=== PATIENT | female | born 1970 | race Caucasian/White ===

== ENCOUNTER → 2017-07-10 18:41 | Outpatient (CLI) | payer BC, SELFPAY ==
--- NOTE | 2017-07-10 18:46 | US_ITS ---
STUDY: ULTRASOUND OF THE FEMALE PELVIS - COMPLETE REASON FOR EXAM: Female, 46 years old. Evaluate IUD. Spotting. LMP: Unknown. TECHNIQUE: Transvaginal TECHNICAL QUALITY: Adequate. COMPARISON: None. FINDINGS: The uterus is anteverted and is in a midline position. The uterus measures 9 x 7.7 x 5 cm. There is minimal fluid within the endocervical canal. The endometrium measures 4 mm in thickness, and is hyperechoic. There is a small hypoechoic area in right side of the uterus measuring about 8 mm which could represent small uterine fibroid. There is another similar area anteriorly measuring about 1 cm. There is no demonstrated myometrial mass. I.U.D. - The patient does not have an I.U.D. The right ovary is visualized. The right ovary measures 2.8 x 1.7 x 1.6 cm cm. There is a follicle in the right ovary measuring about 8 mm. There is no visualized right adnexal mass or complex lesion. There is normal arterial and normal venous vascularity. The left ovary is visualized. The left ovary measures 3.9 x 2.8 x 1.7 cm cm. There is a 2 cm left ovarian cyst. There is no visualized left adnexal mass or complex lesion. There is normal arterial and normal venous vascularity. There is no fluid in the cul-de-sac. US/Transvaginal Non- IMPRESSION: No demonstrated IUD. Small hypoechoic areas in the uterus as described above which may represent small uterine fibroids. 2 cm left ovarian cyst. Minimal fluid within the endocervical canal. Electronically Signed: Harry Camejo MD at 23:14 EST Tel , Service support ,
== END ==
PROVIDERS: Family Provider Internal Medicine; PCP Internal Medicine; Visit Provider Nurse Practitioner Women's Health
DX: R10.2 Pelvic and perineal pain (principal); Z30.431 Encounter for routine checking of intrauterine contraceptive device
CPT/HCPCS: 76830; 93976

== ENCOUNTER 2017-07-25 09:15 | Inpatient (IN) | payer BC, SELFPAY ==
[2017-07-14 13:08] VITALS: BP 132/74; PULSE 66; RESP 17; TEMP 37.4; O2SAT 98; BMI 26.6
--- NOTE | 2017-07-14 13:51 | HP.PCM_ITS ---
History and Physical DATE OF SERVICE: 07/25/2017 SCHEDULED PROCEDURE: Bilateral total hip arthroplasty HISTORY OF PRESENT ILLNESS: This is a 46-year-old female who has had ongoing pain in bilateral hips for approximately 8-10 years. Pain is been constant, aching, stabbing, and sore. She has increased pain going up and down stairs, walking any amount of distance. Patient does have start up pain. Pain is located in bilateral groin as well as lateral hip and anterior thigh bilaterally. Patient has tried conservative measures consisting of rest ice with minimal relief. She has had a corticosteroid injection at the [facility] with minimal relief. Patient has been through formal physical therapy and home exercises as well as patient care technician with no relief. Patient has undergone an MRI which did show a labral tear. Patient was referred up to see a specialist for possible arthroscopy of the hip at the [facility]. The hip arthroscopy surgeon did not feel she is a good candidate for labral repair or debridement. Patient has difficult time with activities of daily living including housework, shopping, and leisure activities such as golf and long walks. Patient has tried oral medications consisting of Advil with minimal relief. She has lost approximately 25 pounds with no significant relief. She denies previous surgery on bilateral hips. After failing conservative measures and discussing all treatment options with Dr. Goldy Juárez the patient would like to proceed with a bilateral total hip arthroplasty. Patient currently denies any chest pain, shortness of breath, fevers chills, recent infections. Patient has medical history pertinent for hypertension. We are obtaining surgical clearance from patient's primary care physician. REVIEW OF SYSTEMS: ROS: Const: Denies change in appetite, fever,or weight change. CV: Denies chest pain, heart murmur and irregular heartbeat. Resp: Denies cough, pneumonia, SOB, tuberculosis and wheezing. GI: Denies constipation, diarrhea, difficulty swallowing, heartburn, nausea, bloody stools and vomiting. : . (F Genital Sx) Urinary: denies incontinence. Musculo: Reports trouble walking and weakness, but denies leg swelling and limp. Skin: Denies Raynaud's, history of shingles and tattoo. Neuro: Denies ambulatory dysfunction, dizziness, numbness/tingling and tremor. Psych: Denies anxiety, insomnia and stress. Prabhu/Lymph: Denies anemia, bleeding/bruising tendency and past transfusion. Reviewed, no changes. PAST MEDICAL HISTORY: Advance Care Plan: Other Directive, POA Effective Date: 05/18/2017 Other Directive, LIVING WILL Effective Date: 05/18/2017 PMH: Medical Problems: Arthritis, High Blood Pressure Accidents: None Surgical Hx: None Anesthesia Complications: None Assistive Devices: Contacts Reviewed, no changes. SOCIAL HISTORY: SH: Marital: .Occupation: Currently Working - [employer].Work Status : Currently Working.Hand Dominance: Right-handed. Personal Habits: Cigarette Use: Never Smoked Cigarettes.Alcohol: Currently consumes alcohol.Drug Use: Denies Use.Enjoy Exercising: Exercises 1-3 x/month. Reviewed, no changes. VITALS: Ht: 69 Wt: 180lb Wt k.648 BMI: 26.6 BP: 138/88 Pulse: 66 Resp: 16 T: 98.2 T: 36.8C ALLERGIES: No Known Drug Allergy MEDICATIONS: Ultram 50 mg 1-2 by mouth q6 hour as needed pain, Lisinopril 5 mg 1 by mouth every day, Mirena (52 MG) 20 mcg/24HR PRE-OP EXAM: General appearance:NORMAL Other: Eyes: Conjunctivae and lids: NORMAL Pupils: ERR Ears, Nose, Mouth, and Throat: NORMAL Other: Inspection of lips, teeth and gums: NORMAL Other: Neck: Examination of neck: no masses noted. Respiratory: Assessment of respiratory effort: NORMAL Other: Ausculation of lungs: clear to ausculation no wheeses, ronchi or rales. Cardiovascular: Ausculation of heart: regular rate and rhythem, no mummurs, gallops or rubs. Exam of carotid arteries: NORMAL Other: Gastrointestinal: Exam of abdomen: soft, nontender, nondistended bowel sounds present. Lymphatic: Palpation of nodes in neck: NORMAL Other: Palpation of nodes in Axillae: NORMAL Other: Neurological: see below Psychiatric: Orientation to time, place and person: NORMAL Other: Mood and affect: NORMAL Other: PHYSICAL EXAMINATION: Patient does walk with an antalgic gait. She has a 5? flexion contracture of the right hip. Internal rotation is a 30? and external rotation 25?. Range of motion of the left hip reveals 90? flexion with internal rotation of 30? and external rotation of 35?. Leg lengths appear equal. Sensations intact to light touch. IMAGING STUDIES: 1. X-rays were obtained at [facility] on July 14, 2017 including AP pelvis as well as bilateral AP and crossfire lateral reveals bilateral hip dysplasia. There is residual joint space on the left however there is flattening over the central femoral head. On the right there is complete loss of joint space with acetabular rim fracture, subchondral sclerosis, and osteophyte formation. Bilateral femoral necks have varus angle. 2. MR arthrogram of the left hip reveals labral tear with labral cyst. IMPRESSION: 1. Bilateral hip osteoarthritis with hip dysplasia 2. Hypertension PLAN: Dr. Juárez did discuss and review with the patient all treatment options including surgical versus nonsurgical. Patient wishes to proceed with above- stated procedure. Potential risks, benefits, and complications of this procedure were discussed in detail including but not limited to , infection , nerve and blood vessel damage, persistent pain, numbness, tingling, paresthesias, blood clot, pulmonary embolism, and requirement for further surgery. The patient expressed full understanding has no further questions for the doctor. Patient does agree to proceed with the above-stated procedure and has signed the surgery consent form. ___ I have re-examined the patient. There are no clinical changes since date of exam. ___ See progress notes for changes. ___ Dictated on admission Date: Time: Signature:
[2017-07-14 14:04] LABS: Absolute Lymphocyte Count 1.54 X10^3/ul (0.83-4.51); Absolute Neutrophil Count 4.2 X10^3/uL (2.0-7.7); Basophil# 0.04 X10^3/uL; Basophil% 0.6 % (0-1); Eosinophil# 0.27 X10^3/uL; Eosinophils% 4.1 % (0-5); Hematocrit 36.6 % (37-47); Hemoglobin 11.8 g/dl (12.0-15.0); Lymphocyte # 1.54 X10^3/ul (4.0); Lymphocyte % 23.6 % (19-41); Mean Corp Hgb Conc 32.2 g/gl (32-36); Mean Corpuscular Hgb 28.3 pg (27.0-32.0); Mean Corpuscular Volume 87.8 fL (81-99); Mean Platelet Vol. 10.3 fl (6.2-12.0); Monocyte# 0.44 X10^3/uL; Monocyte% 6.7 % (0-10); Neutrophil # 4.22 X10^3/uL (2.7-7.7); Neutrophil % 64.8 % (47-70); Platelet Count 212 K/mm3 (150-450); RBC Distribution Width CV 14.5 % (11.6-14.6); Red Blood Count 4.17 M/mm3 (4.2-5.4); White Blood Count 6.5 K/mm3 (4.4-11.0)
[2017-07-14 14:05] LABS: POSITIVE COUNT NO; POSITIVE DIFFERENTIAL NO; POSITIVE MORPHOLOGY NO
[2017-07-14 14:29] LABS: Anion Gap 8 (5-15); BUN 11 mg/dL (7-18); BUN/Creat Ratio 16.9 RATIO (10-20); Chloride 109 mmol/L (98-107); Creatinine, Serum 0.65 mg/dL (0.55-1.02); EST Glomerular Filtration Rate 104 mL/min (>60); Est Glom Filt Rate - Afr Amer 125 mL/min (>60); Estimated Creatinine Clearance 111.82 ml/min; Glucose 80 mg/dL (74-106); Sodium Level 140 mmol/L (136-145)
[2017-07-25] VITALS (10 sets, daily range): BP systolic 118–156; BP diastolic 65–95; PULSE 57–88; RESP 12–18; TEMP 36.3–37; O2SAT 96–100; BMI 26.6
[2017-07-25 09:44] LABS: Internal QC Validated? YES +Cl - CLEAR BKGD; Pregnancy, Urine Negative Negative
[2017-07-25] MEDS: oxyCODONE HCl Cr 10 MG Tablet PO (09:57)
[2017-07-25] MEDS: Acetaminophen 500 MG Tablet 1000 MG PO ×2 (09:58→21:03)
[2017-07-25] MEDS: Celecoxib 200 MG Capsule 400 MG PO (09:58)
[2017-07-25] MEDS: Lactated Ringers 1,000 ML 999 ML IV ×2 (10:25→15:15)
[2017-07-25] MEDS: Scopolamine 1mg/72hr Patch 1 PATCH TD (10:37)
[2017-07-25] MEDS: Heparin 10,000 UNITS/10 ML Vial 10000 UNITS (11:21)
--- NOTE | 2017-07-25 11:27 | PCM.OPRPT ---
Report of Operation Date of Procedure: 07/25/17 Pre-Operative Diagnosis: 1. Left hip secondary osteoarthritis. 2. Right hip secondary osteoarthritis Post-Operative Diagnosis: 1. Left hip secondary osteoarthritis. 2. Right hip secondary osteoarthritis Surgery/Procedure Performed:: 1. Left direct anterior total hip replacement. 2. Right direct anterior total hip replacement Description of Surgical Findings:: Stable hips with equal leg lengths dual hose cementer: Rg Zuluaga Type of Anesthesia:: Spinal Anesthesiologist: Rachid Alexander Special Medications: 2 g Ancef, 1 g TXA at incision, 1 g TXA closure, 10 mg Decadron, joint cocktail (5 mg Duramorph, 30 mL of 0.5% Ropivicaine, 1000 units of epinephrine, 30 mg of Toradol) Specimen's removed: Bony cuts Estimated Blood Loss (mL): 300 Fluids Replaced: 2200 mL crystalloid Description of Procedure: Components used: Left 1. Anato nanette femoral stem size 5 2. [place] trident acetabular shell size 54 mm 3. Nanette X3 polyethylene E 4. Nanette Biolox delta 36mm, 0mm femoral head Right 1. Anato [place] femoral stem size 5 2. [place] trident acetabular shell size 58 mm 3. [place] X3 polyethylene F 4. Nanette Biolox delta 36mm, -2.5mm femoral head Brief history operative indications: 46 yo F who failed conservative measures for their hip osteoarthritis secondary to bilateral hip dysplasia. X-rays were consistent with bilateral dysplasia and osteoarthritis including joint space narrowing, osteophyte formation and subchondral cysts. Total hip replacement was discussed with the patient with risks and benefits including but not limited to blood loss, DVTs, PEs, neurovascular damage, dislocation, general risks of anesthesia including loss of life. Patient demonstrated an understanding medical clearance is obtained the patient was consented for surgery. Procedure: On the date of procedure the patient's B hips were marked in the preoperative area. Patient was then taken back to the operating room where anesthesia assumed control of the C-spine and airway and administered anesthetic. Patient was transferred to the operating table and placed in the supine position. The hips were placed at the break of the bed and a sacral bump was placed. The Rosa lower extremities were then prepped out in a sterile fashion using chlorhexidine while the surgeon scrubbed. The PA was vital in the positioning of the patient. Upon reentering the room the rosa lower extremities were draped in the standard orthopedic fashion and the incision was marked. A timeout was called and everyone agreed upon the side, the site, the procedure be performed, antibody given, and patient's identity. At this time incision was made through skin on the left side, subcutaneous tissue, and fat down to fascia. The fascia was then incised and the TFL was retracted laterally. A retractor was placed on the lateral border of the femoral neck. Attention was directed to the inferior portion of the approach and all crossing vessels were identified and appropriately coagulated. A retractor was then placed on the medial portion of the femoral neck. The anterior capsule was then cleared of all soft tissue and then H shaped capsulotomy was made. The retractors were then placed inside the capsule. The femoral neck was identified and a cleanup cut was made. At this time a power corkscrew was used to remove the femoral head. Attention was then turned toward the acetabulum where the soft tissues were appropriately retracted and the acetabulum was sequentially reamed to 53 mm. A 54 mm cup was then selected and impacted into place. Acetabular liner was impacted into place and locking mechanism was verified. The position of the acetabular cup was then verified under live fluoroscopy. Attention was then turned to the femur. Soft tissue releases on the medial and lateral femoral neck were appropriately done, the leg was externally rotated and lateralized. A Hopper retractor was placed medially and proximally to the greater trochanter this allowed appropriate visualization and exposure of the femoral canal. Rongeour was then used to remove excess lateral bone. A canal finder and entry broach were used to open the proximal canal. Once we verified we were down the femoral canal we subsequently broached up to a size 5 femur. The appropriate neck was placed in the previously selected head was trialed with a 0 mm neck. Traction was pulled and the hip was reduced with internal rotation. Once it was appropriately reduced and stability was checked. There was minimal shuck, equal leg lengths and appropriate stability with hyperextension and external rotation as well as with 90? flexion and internal rotation. Fluoroscopy was then also used to verify the position of the components and leg lengths using the contralateral side for comparison. The trial components were then dislocated the proximal femur was again exposed and the components were removed from the wound. The final components were verified and opened. The wound was copiously irrigated out with normal saline. The acetabulum was checked for any residual debris. The final components were placed and impacted. Traction and internal rotation were again used to reduce the hip. After adequate reduction the hip remained stable with appropriate leg lengths. The final components were once again checked with live fluoroscopy and were found to be satisfactory. The wound was then copiously irrigated with normal saline once more, and hemostasis was obtained. Closure was then done using #1 Vicryl runner to close the fascia. A 2-0 vicryl interuppted sutures were used to close the subcutaneous skin. A 3-0 Monocryl and Steri-Strips were used for final skin closure. A Silverlon dressing was placed. Our attention was then directed towards the right side at this time incision was made through skin, subcutaneous tissue, and fat down to fascia. The fascia was then incised and the TFL was retracted laterally. A retractor was placed on the lateral border of the femoral neck. Attention was directed to the inferior portion of the approach and all crossing vessels were identified and appropriately coagulated. A retractor was then placed on the medial portion of the femoral neck. The anterior capsule was then cleared of all soft tissue and then H shaped capsulotomy was made. The retractors were then placed inside the capsule. The femoral neck was identified and a cleanup cut was made. At this time a power corkscrew was used to remove the femoral head. Attention was then turned toward the acetabulum where the soft tissues were appropriately retracted and the acetabulum was sequentially reamed to 57 mm. A 58 mm cup was then selected and impacted into place. Acetabular liner was impacted into place and locking mechanism was verified. The position of the acetabular cup was then verified under live fluoroscopy. Attention was then turned to the femur. Soft tissue releases on the medial and lateral femoral neck were appropriately done, the leg was externally rotated and lateralized. A Hopper retractor was placed medially and proximally to the greater trochanter this allowed appropriate visualization and exposure of the femoral canal. Rongeour was then used to remove excess lateral bone. A canal finder and entry broach were used to open the proximal canal. Once we verified we were down the femoral canal we subsequently broached up to a size 5 femur. The appropriate neck was placed in the previously selected head was trialed with a -2.5 mm neck. Traction was pulled and the hip was reduced with internal rotation. Once it was appropriately reduced and stability was checked. There was minimal shuck, equal leg lengths and appropriate stability with hyperextension and external rotation as well as with 90? flexion and internal rotation. Fluoroscopy was then also used to verify the position of the components and leg lengths using the contralateral side for comparison. The trial components were then dislocated the proximal femur was again exposed and the components were removed from the wound. The final components were verified and opened. The wound was copiously irrigated out with normal saline. The acetabulum was checked for any residual debris. The final components were placed and impacted. Traction and internal rotation were again used to reduce the hip. After adequate reduction the hip remained stable with appropriate leg lengths. The final components were once again checked with live fluoroscopy and were found to be satisfactory. The wound was then copiously irrigated with normal saline once more, and hemostasis was obtained. Closure was then done using #1 Vicryl runner to close the fascia. A 2-0 vicryl interuppted sutures were used to close the subcutaneous skin. A 3-0 Monocryl and Steri-Strips were used for final skin closure. A Silverlon dressing was placed. Patient was awakened by anesthesia and transferred to the [facility]. Patient was then transferred to the PACU for recovery. Postoperative plan: Patient will get 24 hours postop antibiotics. Patient will get in-house physical therapy and will be weight-bear as tolerated. Patient will follow up in office in 2 weeks for a wound check and x-rays. During the course of the procedure the physician residential living assistant played a vital role. His intimate knowledge of my steps in the procedure aided in safe and expedient completion of the procedure. The PA played a vital rolls in positioning particularly in obtaining the appropriate positioning of the sacral bump. The PA was also vital in the retraction of soft tissues during the exposure and especially the femoral work as this is a vital part of the procedure to prevent complications and fractures. The PA was also vital and protecting soft tissues during times of bony cuts and reaming. He also played a vital role in closure with my direct supervision. The PA was also important during reduction and dislocation of the joint and trials intraoperatively. Grafts/Implants Used: [place] Anato femoral stem - Complications none - Admit VTE Documentation VTE Present on Admission: No VTE Mechan Device Prophylaxis: SCD's, Thigh High MATHEUS Hose VTE Pharm Prophylaxis ordered?: Yes
--- NOTE | 2017-07-25 11:33 | OP.PCM_ITS ---
Report of Operation Date of Procedure: 07/25/17 Pre-Operative Diagnosis: 1. Left hip secondary osteoarthritis. 2. Right hip secondary osteoarthritis Post-Operative Diagnosis: 1. Left hip secondary osteoarthritis. 2. Right hip secondary osteoarthritis Surgery/Procedure Performed:: 1. Left direct anterior total hip replacement. 2. Right direct anterior total hip replacement Description of Surgical Findings:: Stable hips with equal leg lengths financial rep: Rg Zuluaga Type of Anesthesia:: Spinal Anesthesiologist: Rachid Alexander Special Medications: 2 g Ancef, 1 g TXA at incision, 1 g TXA closure, 10 mg Decadron, joint cocktail (5 mg Duramorph, 30 mL of 0.5% Ropivicaine, 1000 units of epinephrine, 30 mg of Toradol) Specimen's removed: Bony cuts Estimated Blood Loss (mL): 300 Fluids Replaced: 2200 mL crystalloid Description of Procedure: Components used: Left 1. Anato nanette femoral stem size 5 2. [place] trident acetabular shell size 54 mm 3. Nanette X3 polyethylene E 4. Nanette Biolox delta 36mm, 0mm femoral head Right 1. Anato [place] femoral stem size 5 2. [place] trident acetabular shell size 58 mm 3. [place] X3 polyethylene F 4. Nanette Biolox delta 36mm, -2.5mm femoral head Brief history operative indications: 46 yo F who failed conservative measures for their hip osteoarthritis secondary to bilateral hip dysplasia. X-rays were consistent with bilateral dysplasia and osteoarthritis including joint space narrowing, osteophyte formation and subchondral cysts. Total hip replacement was discussed with the patient with risks and benefits including but not limited to blood loss, DVTs, PEs, neurovascular damage, dislocation, general risks of anesthesia including loss of life. Patient demonstrated an understanding medical clearance is obtained the patient was consented for surgery. Procedure: On the date of procedure the patient's B hips were marked in the preoperative area. Patient was then taken back to the operating room where anesthesia assumed control of the C-spine and airway and administered anesthetic. Patient was transferred to the operating table and placed in the supine position. The hips were placed at the break of the bed and a sacral bump was placed. The Rosa lower extremities were then prepped out in a sterile fashion using chlorhexidine while the surgeon scrubbed. The PA was vital in the positioning of the patient. Upon reentering the room the rosa lower extremities were draped in the standard orthopedic fashion and the incision was marked. A timeout was called and everyone agreed upon the side, the site, the procedure be performed, antibody given, and patient's identity. At this time incision was made through skin on the left side, subcutaneous tissue, and fat down to fascia. The fascia was then incised and the TFL was retracted laterally. A retractor was placed on the lateral border of the femoral neck. Attention was directed to the inferior portion of the approach and all crossing vessels were identified and appropriately coagulated. A retractor was then placed on the medial portion of the femoral neck. The anterior capsule was then cleared of all soft tissue and then H shaped capsulotomy was made. The retractors were then placed inside the capsule. The femoral neck was identified and a cleanup cut was made. At this time a power corkscrew was used to remove the femoral head. Attention was then turned toward the acetabulum where the soft tissues were appropriately retracted and the acetabulum was sequentially reamed to 53 mm. A 54 mm cup was then selected and impacted into place. Acetabular liner was impacted into place and locking mechanism was verified. The position of the acetabular cup was then verified under live fluoroscopy. Attention was then turned to the femur. Soft tissue releases on the medial and lateral femoral neck were appropriately done, the leg was externally rotated and lateralized. A Hopper retractor was placed medially and proximally to the greater trochanter this allowed appropriate visualization and exposure of the femoral canal. Rongeour was then used to remove excess lateral bone. A canal finder and entry broach were used to open the proximal canal. Once we verified we were down the femoral canal we subsequently broached up to a size 5 femur. The appropriate neck was placed in the previously selected head was trialed with a 0 mm neck. Traction was pulled and the hip was reduced with internal rotation. Once it was appropriately reduced and stability was checked. There was minimal shuck, equal leg lengths and appropriate stability with hyperextension and external rotation as well as with 90? flexion and internal rotation. Fluoroscopy was then also used to verify the position of the components and leg lengths using the contralateral side for comparison. The trial components were then dislocated the proximal femur was again exposed and the components were removed from the wound. The final components were verified and opened. The wound was copiously irrigated out with normal saline. The acetabulum was checked for any residual debris. The final components were placed and impacted. Traction and internal rotation were again used to reduce the hip. After adequate reduction the hip remained stable with appropriate leg lengths. The final components were once again checked with live fluoroscopy and were found to be satisfactory. The wound was then copiously irrigated with normal saline once more, and hemostasis was obtained. Closure was then done using #1 Vicryl runner to close the fascia. A 2-0 vicryl interuppted sutures were used to close the subcutaneous skin. A 3-0 Monocryl and Steri-Strips were used for final skin closure. A Silverlon dressing was placed. Our attention was then directed towards the right side at this time incision was made through skin, subcutaneous tissue, and fat down to fascia. The fascia was then incised and the TFL was retracted laterally. A retractor was placed on the lateral border of the femoral neck. Attention was directed to the inferior portion of the approach and all crossing vessels were identified and appropriately coagulated. A retractor was then placed on the medial portion of the femoral neck. The anterior capsule was then cleared of all soft tissue and then H shaped capsulotomy was made. The retractors were then placed inside the capsule. The femoral neck was identified and a cleanup cut was made. At this time a power corkscrew was used to remove the femoral head. Attention was then turned toward the acetabulum where the soft tissues were appropriately retracted and the acetabulum was sequentially reamed to 57 mm. A 58 mm cup was then selected and impacted into place. Acetabular liner was impacted into place and locking mechanism was verified. The position of the acetabular cup was then verified under live fluoroscopy. Attention was then turned to the femur. Soft tissue releases on the medial and lateral femoral neck were appropriately done, the leg was externally rotated and lateralized. A Hopper retractor was placed medially and proximally to the greater trochanter this allowed appropriate visualization and exposure of the femoral canal. Rongeour was then used to remove excess lateral bone. A canal finder and entry broach were used to open the proximal canal. Once we verified we were down the femoral canal we subsequently broached up to a size 5 femur. The appropriate neck was placed in the previously selected head was trialed with a -2.5 mm neck. Traction was pulled and the hip was reduced with internal rotation. Once it was appropriately reduced and stability was checked. There was minimal shuck, equal leg lengths and appropriate stability with hyperextension and external rotation as well as with 90? flexion and internal rotation. Fluoroscopy was then also used to verify the position of the components and leg lengths using the contralateral side for comparison. The trial components were then dislocated the proximal femur was again exposed and the components were removed from the wound. The final components were verified and opened. The wound was copiously irrigated out with normal saline. The acetabulum was checked for any residual debris. The final components were placed and impacted. Traction and internal rotation were again used to reduce the hip. After adequate reduction the hip remained stable with appropriate leg lengths. The final components were once again checked with live fluoroscopy and were found to be satisfactory. The wound was then copiously irrigated with normal saline once more, and hemostasis was obtained. Closure was then done using #1 Vicryl runner to close the fascia. A 2-0 vicryl interuppted sutures were used to close the subcutaneous skin. A 3-0 Monocryl and Steri-Strips were used for final skin closure. A Silverlon dressing was placed. Patient was awakened by anesthesia and transferred to the [facility]. Patient was then transferred to the PACU for recovery. Postoperative plan: Patient will get 24 hours postop antibiotics. Patient will get in-house physical therapy and will be weight-bear as tolerated. Patient will follow up in office in 2 weeks for a wound check and x-rays. During the course of the procedure the physician ophthalmology assistant played a vital role. His intimate knowledge of my steps in the procedure aided in safe and expedient completion of the procedure. The PA played a vital rolls in positioning particularly in obtaining the appropriate positioning of the sacral bump. The PA was also vital in the retraction of soft tissues during the exposure and especially the femoral work as this is a vital part of the procedure to prevent complications and fractures. The PA was also vital and protecting soft tissues during times of bony cuts and reaming. He also played a vital role in closure with my direct supervision. The PA was also important during reduction and dislocation of the joint and trials intraoperatively. Grafts/Implants Used: [place] Anato femoral stem - Complications none - Admit VTE Documentation VTE Present on Admission: No VTE Mechan Device Prophylaxis: SCD's, Thigh High MATHEUS Hose VTE Pharm Prophylaxis ordered?: Yes
[2017-07-25] MEDS: Cefazolin 2 GM in 0.9% Normal Saline 100 ML IV (12:00)
--- NOTE | 2017-07-25 12:35 | RAD_ITS ---
STUDY: X-RAY - PELVIS AND BILATERAL HIPS REASON FOR EXAM: Female, 46 years old. Bilateral total hip replacement TECHNIQUE: Radiological exam, hip, bilateral, with pelvis when performed; 3-4 views COMPARISON: None. FINDINGS: 3 intraoperative fluoroscopy images demonstrate bilateral hip replacement without evidence of acute hardware failure or loosening. No definitive fracture RAD/Hips B/L min 2 views w/ Pelvis IMPRESSION: Postsurgical changes of both hips as above Electronically Signed: Timothy Kiser DO at 15:11 EST Tel , Service support ,
--- NOTE | 2017-07-25 14:47 | RAD_ITS ---
STUDY: X-RAY - PELVIS AND BILATERAL HIPS REASON FOR EXAM: Female, 46 years old. Postop from bilateral hip replacement TECHNIQUE: Radiological exam, hip, bilateral, with pelvis when performed; 2 views COMPARISON: 05/08/2017 FINDINGS: Patient is status post bilateral total hip arthroplasty. No evidence of acute hardware failure or loosening. Expected postoperative soft tissue changes are noted. Metallic IUD in the pelvic region. No evidence of fracture or dislocation. RAD/Hips B/L min 2 views w/ Pelvis IMPRESSION: Total hip arthroplasty as above bilaterally Electronically Signed: Timothy Kiser DO at 16:33 EST Tel , Service support ,
--- NOTE | 2017-07-25 15:45 | NURSING ---
bp taken at 1545 not recorded, pts arm was bent due to pt getting xray.
[2017-07-25] MEDS: Lactated Ringers 1,000 ML 125 ML IV (16:16)
[2017-07-25] MEDS: 0.9% NaCl Peripheral Flush Adult/Peds IV (17:58)
[2017-07-25] MEDS: oxyCODONE 5 MG Tablet PO (18:03)
[2017-07-25] MEDS: Cefazolin 1 GM/50 ML BAG IV (20:50)
[2017-07-25] MEDS: Senna/Docusate Sodium 1 Tablet 2 TABLET PO (21:03)
[2017-07-26] MEDS: Lactated Ringers 1,000 ML 125 ML IV (01:16)
[2017-07-26] MEDS: Cefazolin 1 GM/50 ML BAG IV (03:16)
[2017-07-26 03:19] VITALS: BP 109/75; PULSE 68; RESP 16; TEMP 36.4; O2SAT 97
[2017-07-26] MEDS: Rivaroxaban 10 MG Tablet PO (05:04)
[2017-07-26] MEDS: Acetaminophen 500 MG Tablet 1000 MG PO ×3 (05:04→21:35)
[2017-07-26 06:49] LABS: Hematocrit 25.8 % (37-47); Hemoglobin 8.2 g/dl (12.0-15.0); Mean Corp Hgb Conc 31.8 g/gl (32-36); Mean Corpuscular Volume 91.2 fL (81-99); Mean Platelet Vol. 11.1 fl (6.2-12.0); Platelet Count 185 K/mm3 (150-450); RBC Distribution Width CV 14.2 % (11.6-14.6); RBC Distribution Width SD 45.5 fl (35.1-43.9); Red Blood Count 2.83 M/mm3 (4.2-5.4); White Blood Count 14.6 K/mm3 (4.4-11.0)
[2017-07-26 06:56] LABS: Scan Indicated on CBC? Y/N NO
[2017-07-26 07:16] LABS: Anion Gap 7 (5-15); BUN 12 mg/dL (7-18); BUN/Creat Ratio 17.2 RATIO (10-20); Calcium,Total 8.3 mg/dL (8.5-10.1); Chloride 110 mmol/L (98-107); EST Glomerular Filtration Rate 96 mL/min (>60); Est Glom Filt Rate - Afr Amer 116 mL/min (>60); Estimated Creatinine Clearance 103.83 ml/min; Glucose 98 mg/dL (74-106); Potassium 4.1 mmol/L (3.5-5.1); Sodium Level 142 mmol/L (136-145)
--- NOTE | 2017-07-26 07:24 | PN.ORTHO_ITS ---
Subjective: The patient was sitting in bedside chair upon examination. Patient denies any chest pain, shortness of breath, dizziness, lightheadedness, nausea or vomiting , or calf pain. Pain is controlled on medications. No adverse overnight events. [ ]. Objective: Vital signs stable and afebrile. Patient is able to plantarflex and dorsiflex actively. Sensation is intact to light touch to saphenous, sural, superficial and deep peroneal, and tibial distribution. Dressing is clean dry and intact on right. On the left dressing there is drainage to the lateral distal one third contacting 3 borders. Negative Homans bilaterally, negative signs and symptoms of DVT. - Physical Exam General: Alert, Oriented x3, Cooperative, No apparent distress Vital Signs Temp Pulse Resp BP Pulse Ox 97.5 F L 68 16 109/75 97 07/26/17 03:19 07/26/17 03:19 07/26/17 03:19 07/26/17 03:19 07/26/17 03:19 Oxygen Delivery Method Room Air Weight: 82 kg Body Mass Index (BMI) 26.6 Intake and Output for Last 24 Hours 07/24/17 07/25/17 07/26/17 23:59 23:59 23:59 Intake Total 3326 / 3326 3023 / 3023 Output Total 1550 / 1550 Balance 3326 / 3326 1473 / 1473 Laboratory Tests Past 24 Hrs 07/25/17 07/26/17 07/26/17 09:27 06:10 06:10 WBC 14.6 H RBC 2.83 L Hgb 8.2 L Hct 25.8 L MCV 91.2 MCH 29.0 MCHC 31.8 L RDW 14.2 RDW Differential 45.5 H Plt Count 185 MPV 11.1 Sodium 142 Potassium 4.1 Chloride 110 H Carbon Dioxide 25.0 Anion Gap 7 BUN 12 Creatinine 0.70 Estim Creat Clear Calc 103.83 Est GFR (MDRD) Af Amer 116 Est GFR (MDRD) Non-Af 96 BUN/Creatinine Ratio 17.2 Glucose 98 Calcium 8.3 L Urine Test Negative Assessment/Plan 1. S/P bilateral direct anterior total hip arthroplasty POD #1 2. Continue Pain Medications: Tylenol and OxyIR 3. DVT Prophylaxis: Xarelto 4. PT/OT: Weightbearing as tolerated 5. H & H: 8.2/25.8, asymptomatic 6. Leukocytosis: Currently 14.6, afebrile. Patient did receive Decadron intraoperatively 7. Encouraged Incentive Spirometry 8. Postoperative drainage: Will need to obtain new dressing for left hip and will be placed by nursing 9. Disposition: Plan will be for discharge home tomorrow.
[2017-07-26] MEDS: Senna/Docusate Sodium 1 Tablet 2 TABLET PO ×2 (08:52→21:35)
[2017-07-26] MEDS: Famotidine 20 MG Tablet PO (08:52)
[2017-07-26 08:57] VITALS: BP 104/58; PULSE 73; RESP 18; TEMP 36.6; O2SAT 100
[2017-07-26] MEDS: oxyCODONE 5 MG Tablet PO ×2 (12:42→21:35)
[2017-07-26 13:41] VITALS: BP 112/62; PULSE 68; RESP 16; TEMP 36.7; O2SAT 100
--- NOTE | 2017-07-26 13:50 | CASEMGMT ---
RN DORON Face to Face with patient for initial transition planning/care coordination assessment. RN CM introduced self and role at [facility]. Patient lying in bed, alert and oriented, mother at bedside. Patient willing to participate in assessment and is able to answer all questions appropriately. Care providers, pharmacy, and demographics verified. See link attached. Patient wishes to discharge home and has outpatient therapy setup at [facility]. Patient states that her or mother will be providing transportation. Patient states she has no further needs or concerns at this time. CM to follow for discharge planning needs that may arise. Disposition Plan: Patient to discharge home with outpatient therapy, family support, and follow-up plans in place.
[2017-07-26 21:40] VITALS: BP 120/59; PULSE 82; RESP 16; TEMP 36.9; O2SAT 100
[2017-07-27] VITALS (13 sets, daily range): BP systolic 104–157; BP diastolic 62–84; PULSE 76–104; RESP 16–18; TEMP 36.4–37.6; O2SAT 98–100
[2017-07-27] MEDS: oxyCODONE 5 MG Tablet PO ×2 (06:02→23:13)
[2017-07-27] MEDS: Acetaminophen 500 MG Tablet 1000 MG PO ×3 (06:02→23:14)
[2017-07-27] MEDS: Rivaroxaban 10 MG Tablet PO (06:02)
[2017-07-27 06:33] LABS: Hematocrit 23.7 % (37-47); Hemoglobin 7.5 g/dl (12.0-15.0); Mean Corp Hgb Conc 31.6 g/gl (32-36); Mean Corpuscular Volume 91.5 fL (81-99); Mean Platelet Vol. 11.1 fl (6.2-12.0); Platelet Count 140 K/mm3 (150-450); RBC Distribution Width CV 14.5 % (11.6-14.6); RBC Distribution Width SD 47.1 fl (35.1-43.9); Red Blood Count 2.59 M/mm3 (4.2-5.4); White Blood Count 7.4 K/mm3 (4.4-11.0)
[2017-07-27 06:34] LABS: Scan Indicated on CBC? Y/N NO
[2017-07-27] MEDS: Famotidine 20 MG Tablet PO (07:51)
[2017-07-27] MEDS: Senna/Docusate Sodium 1 Tablet 2 TABLET PO ×2 (07:51→23:14)
[2017-07-27] MEDS: Ketorolac 15 MG/ML Vial IV (07:54)
[2017-07-27] MEDS: 0.9% NaCl Peripheral Flush Adult/Peds IV ×2 (07:55→23:19)
--- NOTE | 2017-07-27 08:46 | PCM.PN.ORT ---
Subjective: The patient was sitting in bedside chair upon examination. Patient denies any chest pain, shortness of breath, nausea or vomiting, or calf pain. Pain is controlled on medications. Does report dizziness and lightheadedness when she stands. No adverse overnight events. Patient's hemoglobin has dropped to 7.5. Objective: Vital signs stable and afebrile. Blood pressure currently 104/62 Patient is able to plantarflex and dorsiflex actively. Sensation is intact to light touch to saphenous, sural, superficial and deep peroneal, and tibial distribution. Dressings are clean dry and intact. There is swelling to bilateral thighs but compartments are soft and supple. There is ecchymosis on the lateral left hip. Negative Homans bilaterally, negative signs and symptoms of DVT. - Physical Exam General: Alert, Oriented x3, Cooperative, No apparent distress Vital Signs Temp Pulse Resp BP Pulse Ox 98 F 90 16 104/62 100 07/27/17 07:46 07/27/17 07:46 07/27/17 07:46 07/27/17 07:46 07/27/17 07:46 Oxygen Delivery Method Room Air Weight: 82 kg Body Mass Index (BMI) 26.6 Intake and Output for Last 24 Hours 18 //18 07/27/17 23:59 23:59 23:59 Intake Total 3326 / 3326 4623 / 4623 1300 / 1300 Output Total 1550 / 1550 Balance 3326 / 3326 3073 / 3073 1300 / 1300 Laboratory Tests Past 24 Hrs 07/27/17 05:58 WBC 7.4 RBC 2.59 L Hgb 7.5 L Hct 23.7 L MCV 91.5 MCH 29.0 MCHC 31.6 L RDW 14.5 RDW Differential 47.1 H Plt Count 140 L MPV 11.1 Assessment/Plan 1. S/P bilateral direct anterior total hip arthroplasty POD #2 2. Continue Pain Medications: Tylenol and OxyIR 3. DVT Prophylaxis: Xarelto 4. PT/OT: Weightbearing as tolerated 5. H & H: 7.5/23.7, patient currently with dizziness and lightheadedness upon standing. Postoperative anemia secondary to acute blood loss. Case was discussed with Dr. Juárez, plan will be for transfusion of 2 units of packed red blood cells followed by repeat H&H. 6. Leukocytosis: resolved currently 7.4, afebrile. Patient did receive Decadron intraoperatively 7. Encouraged Incentive Spirometry 8. Postoperative drainage: Will need to obtain new dressing for left hip and will be placed by nursing 9. Disposition: Plan will be for possible discharge home tomorrow.
[2017-07-27] MEDS: Celecoxib 200 MG Capsule PO (23:14)
[2017-07-28 03:59] VITALS: BP 133/83; PULSE 73; RESP 16; TEMP 36.6; O2SAT 98
[2017-07-28] MEDS: Acetaminophen 500 MG Tablet 1000 MG PO (06:09)
[2017-07-28] MEDS: Rivaroxaban 10 MG Tablet PO (06:09)
[2017-07-28] MEDS: oxyCODONE 5 MG Tablet PO (06:12)
[2017-07-28 06:20] LABS: Hematocrit 27.7 % (37-47); Hemoglobin 9.1 g/dl (12.0-15.0); Mean Corp Hgb Conc 32.9 g/gl (32-36); Mean Corpuscular Hgb 29.3 pg (27.0-32.0); Mean Corpuscular Volume 89.1 fL (81-99); Mean Platelet Vol. 11.2 fl (6.2-12.0); Platelet Count 146 K/mm3 (150-450); RBC Distribution Width CV 15.6 % (11.6-14.6); RBC Distribution Width SD 49.3 fl (35.1-43.9); Red Blood Count 3.11 M/mm3 (4.2-5.4); White Blood Count 7.7 K/mm3 (4.4-11.0)
[2017-07-28 06:23] LABS: Scan Indicated on CBC? Y/N NO
--- NOTE | 2017-07-28 07:11 | PN.ORTHO_ITS ---
Subjective: The patient was sitting in bedside chair upon examination. Patient denies any chest pain, shortness of breath, dizziness, lightheadedness, nausea or vomiting , or calf pain. Pain is controlled on medications. No adverse overnight events. Patient received 2 units of packed red blood cells due to drop in hemoglobin on July 27, 2017. Patient is feeling much better today. She also states the hips are less painful. She does wish to try to go home today. Objective: Vital signs stable and afebrile. Blood pressure currently 104/62 Patient is able to plantarflex and dorsiflex actively. Sensation is intact to light touch to saphenous, sural, superficial and deep peroneal, and tibial distribution. Dressings are clean dry and intact. There is swelling to bilateral thighs but compartments are soft and supple. There is ecchymosis on the lateral left hip. Negative Homans bilaterally, negative signs and symptoms of DVT. - Physical Exam General: Alert, Oriented x3, Cooperative, No apparent distress Vital Signs Temp Pulse Resp BP Pulse Ox 97.8 F 73 16 133/83 H 98 07/28/17 03:59 07/28/17 03:59 07/28/17 03:59 07/28/17 03:59 07/28/17 03:59 Oxygen Delivery Method Room Air Weight: 82 kg Body Mass Index (BMI) 26.6 Intake and Output for Last 24 Hours 07/26/17 07/27/17 07/28/17 23:59 23:59 23:59 Intake Total 4623 / 4623 3121 / 3121 360 / 360 Output Total 1550 / 1550 Balance 3073 / 3073 3121 / 3121 360 / 360 Laboratory Tests Past 24 Hrs 07/27/17 07/28/17 09:10 05:40 WBC 7.7 RBC 3.11 L Hgb 9.1 L Hct 27.7 L MCV 89.1 MCH 29.3 MCHC 32.9 RDW 15.6 H RDW Differential 49.3 H Plt Count 146 L MPV 11.2 Blood Type A POSITIVE Antibody Screen NEGATIVE Crossmatch See Detail Assessment/Plan 1. S/P bilateral direct anterior total hip arthroplasty POD #3 2. Continue Pain Medications: Tylenol and OxyIR 3. DVT Prophylaxis: Xarelto 4. PT/OT: Weightbearing as tolerated 5. H & H: 9.1/27.7, patient currently asymptomatic with vital signs stable. Postoperative anemia secondary to acute blood loss. Patient did receive 2 units of packed red blood cells on July 27, 2017 6. Encouraged Incentive Spirometry 7. Disposition: Plan will be for possible discharge home today. Overall patient is doing significantly better since receiving transfusion. If patient tolerates physical therapy and pain is well controlled plan will be for discharge home today. Prescriptions are attached to chart. Patient will follow -up per postop instructions.
--- NOTE | 2017-07-28 07:17 | PCM.DC.THR ---
Discharge Diet: No Restrictions Discharge Activity: May Not Drive - while taking narcotic pain medications. May shower in (days): 1 - Turned dressings away from water Weight Bearing Status: Weight bearing as tolerated Additional Activity Instructions:: Wear elastic stockings for 2 weeks. DO NOT use alcohol with narcotic pain medication. DO NOT make important decisions while taking narcotic medication. If you have problems with taking your medication (rash, itching, nausea, etc.) call the office at once. Call your doctor if your incision/area has: Increased Pain/ Swelling, Increased Redness, Foul Smelling Discharge Call your doctor if you observe: Fever of 101 or Higher Remove Dressing in (days):: 2 - Okay to remove on July 30, 2017 Additional Instructions: Follow [facility] postop instructions Allergies/Adverse Reactions: Allergies No Known Allergies Allergy (Verified 07/14/17 13:04) Medications to take at Discharge levonorgestrel 20 mcg/24 hr (5 years) intrauterine device 1 insert INTRAUTERINE ONCE 06/27/17 Lisinopril [Prinivil] 5 mg PO QDAY 07/14/17 Acetaminophen [Tylenol] 1,000 mg PO Q8 #90 tab 07/28/17 Celecoxib [Celebrex] 200 mg PO BID #30 cap 07/28/17 Famotidine [Pepcid] 20 mg PO DAILY #30 tab 07/28/17 Oxycodone [Oxyir] 5 - 10 mg PO Q4H PRN PRN 7 Days #80 tab 07/28/17 Rivaroxaban [Xarelto] 10 mg PO DAILY@0600 #10 tab 07/28/17 Senna/Docusate Sodium [Senokot-S] 2 tab PO BID #20 tab 07/28/17 The following prescriptions were given: Oxycodone [Oxyir] 5 - 10 mg PO Q4H PRN PRN 7 Days #80 tab PRN Reason: Mod-Severe Pain (-03/07) Acetaminophen [Tylenol] 1,000 mg PO Q8 #90 tab Famotidine [Pepcid] 20 mg PO DAILY #30 tab Rivaroxaban [Xarelto] 10 mg PO DAILY@0600 #10 tab Celecoxib [Celebrex] 200 mg PO BID #30 cap Senna/Docusate Sodium [Senokot-S] 2 tab PO BID #20 tab Primary Care Physician: Kendrick Downs MD [Primary Care Provider] - Please Follow Up With: [facility] physical therapy with [facility] When: 07/31/17 @ 9:00 am Please Follow Up With: Rg Zuluaga PA-C When: 08/07/17 @ 3:00 pm
--- NOTE | 2017-07-28 07:20 | PCM.DC.SUM ---
Discharge Date and Diagnosis Date of Admission: 07/25/17 Date of Discharge: 07/28/17 - Primary Discharge Diagnosis Bilateral total hip arthroplasty - Secondary Discharge Diagnosis Chronic Problems (Last Reviewed 07/10/17 @ 14:55 by Shana Mcgovern) Chronic back pain (Chronic) Arthritis (Chronic) Seasonal allergies (Chronic) Hypertension (Chronic) Hospital Course and Treatment Summary of Care Provided: Patient is a 46-year-old female who had bilateral hip osteoarthritis. After failing conservative measures, the patient opted to proceed with a bilateral total hip arthroplasty. The patient underwent the above-stated procedure on July 25, 2017. Patient did receive perioperative antibiotics. Intraoperatively was uneventful. For details please see dictated operative note. The patient was placed in thigh-high teds, bilateral SCDs, remained stable in recovery. Patient was admitted to the 3rd floor at [facility]. The patient's pain was managed with the use of IV and p.o. pain medications. Patient participated in physical therapy. Patient did require transfusion of 2 units PRBC's on POD#2. Patient felt significantly better the next day and was asymptomatic. Patient was discharged on postoperative day #3 to home. Patient was given medications stated below. Patient will follow up with [facility] per postop instructions for reassessment. Discharge Diet: No Restrictions Discharge Activity: May Not Drive - while taking narcotic pain medications. May shower in (days): 1 - Turned dressings away from water Weight Bearing Status: Weight bearing as tolerated Additional Activity Instructions:: Wear elastic stockings for 2 weeks. DO NOT use alcohol with narcotic pain medication. DO NOT make important decisions while taking narcotic medication. If you have problems with taking your medication (rash, itching, nausea, etc.) call the office at once. Call your doctor if your incision/area has: Increased Pain/ Swelling, Increased Redness, Foul Smelling Discharge Call your doctor if you observe: Fever of 101 or Higher Remove Dressing in (days):: 2 - Okay to remove on July 30, 2017 Home Medications: Medications to take at Discharge levonorgestrel 20 mcg/24 hr (5 years) intrauterine device 1 insert INTRAUTERINE ONCE 06/27/17 Lisinopril [Prinivil] 5 mg PO QDAY 07/14/17 Acetaminophen [Tylenol] 1,000 mg PO Q8 #90 tab 07/28/17 Celecoxib [Celebrex] 200 mg PO BID #30 cap 07/28/17 Famotidine [Pepcid] 20 mg PO DAILY #30 tab 07/28/17 Oxycodone [Oxyir] 5 - 10 mg PO Q4H PRN PRN 7 Days #80 tab 07/28/17 Rivaroxaban [Xarelto] 10 mg PO DAILY@0600 #10 tab 07/28/17 Senna/Docusate Sodium [Senokot-S] 2 tab PO BID #20 tab 07/28/17 Following Prescrptions Were Given to Patient: Oxycodone [Oxyir] 5 - 10 mg PO Q4H PRN PRN 7 Days #80 tab PRN Reason: Mod-Severe Pain (-03/07) Acetaminophen [Tylenol] 1,000 mg PO Q8 #90 tab Famotidine [Pepcid] 20 mg PO DAILY #30 tab Rivaroxaban [Xarelto] 10 mg PO DAILY@0600 #10 tab Celecoxib [Celebrex] 200 mg PO BID #30 cap Senna/Docusate Sodium [Senokot-S] 2 tab PO BID #20 tab Primary Care Physician: Kendrick Downs MD [Primary Care Provider] - Please Follow Up With: [facility] physical therapy with [place] When: 07/31/17 @ 9:00 am Please Follow Up With: Rg Zuluaga PA-C When: 08/07/17 @ 3:00 pm Additional Instructions: Follow [facility] postop instructions Meaningful Use Info Meaningful Use Diagnoses (Choose all that apply): None applicable
[2017-07-28 07:42] VITALS: BP 125/71; PULSE 73; RESP 16; TEMP 36.4; O2SAT 98
[2017-07-28] MEDS: Famotidine 20 MG Tablet PO (09:31)
[2017-07-28] MEDS: Lisinopril 5 MG Tablet PO (09:31)
[2017-07-28] MEDS: Senna/Docusate Sodium 1 Tablet 2 TABLET PO (09:31)
[2017-07-28] MEDS: Celecoxib 200 MG Capsule PO (09:31)
== END 2017-07-28 10:53 | disposition home or self-care (01) | DRG 462 ==
LOC: ACINP 09:15 → MS3 14:37
PROVIDERS: Anesthesiology; Admitting Provider Specialist; Family Provider Internal Medicine; PCP Internal Medicine; Visit Provider Specialist
PROC: 0SRB04A Replacement of Left Hip Joint with Ceramic on Polyethylene Synthetic Substitute, Uncemented, Open Approach (ICD-10-PCS; CPT 27284; principal; 2017-07-25 10:50)
DX: M16.6 Other bilateral secondary osteoarthritis of hip (principal); D62 Acute posthemorrhagic anemia; G89.29 Other chronic pain; I10 Essential (primary) hypertension; Q65.89 Other specified congenital deformities of hip; M54.9 Dorsalgia, unspecified
CPT/HCPCS: 36415; 73521; 76000; 80048; 81025; 85025; 85027; 86850; 86900; 86920; 86922; 87081; 97110; 97116; 97162; 97166; 97530; 97535; 97802; 99251; J7040; J7120; P9016; A4216; G0463; J2405

== ENCOUNTER → 2018-05-16 07:29 | Outpatient (CLI) | payer BC, SELFPAY ==
[2018-04-22 11:27] VITALS: BMI 30.8
--- NOTE | 2018-05-15 17:30 | BI_ITS ---
MAMMOGRAPHY - BILATERAL SCREENING REASON FOR EXAM: Female, 47 years old. Routine annual screening examination. PERTINENT HISTORY: Non-contributory. TECHNIQUE: Digital bilateral breast raymond (3D mammographic acquisition) in the CC and MLO projections. 2-D mediolateral oblique (MLO) and craniocaudad (CC) views of both breasts were obtained. CAD: Full Field Digital Mammography with Computer Added Detection was performed. COMPARISON: Comparison is made with prior artery examination dated October 04, 2016. FINDINGS: Breast Composition: The breasts are heterogeneously dense, which may obscure small masses. There are no dominant masses or suspicious calcifications. Stable bilateral axillary lymph nodes. No other significant abnormalities are identified. There has been no significant change since the prior study. BI/SCREENING MAMM (CAD), BILAT IMPRESSION: Stable bilateral screening mammogram. Yearly follow-up mammogram recommended. (A) ASSESSMENT CATEGORY: BIRADS Category 2: Benign. A letter regarding these results will be sent to the patient by the facility within 30 days. Approximately 10% of breast cancers are not detected by mammography. A normal mammogram should not delay biopsy of a clinically suspicious abnormality. [id number] Electronically Signed: Aidan Wheeler MD at 8:16 EST Tel [phone], Service support ,
--- OUTSIDE RECORDS SUMMARY | 2018-08-17 08:07 | XMS RPT_ITS ---
:1970 Author Organization [place] Support Name Relationship Address Phone JMSM Unavailable [address] + [place] [address] STARCHER, LEIGH Unavailable [address] + [place] [address] JMSM Unavailable [address] + [place] [address] STARCHER, LEIGH Unavailable [address] + [place] [address] JMSM Unavailable [address] + [place] [address] STARCHER, LEIGH Unavailable [address] + [place] [address] JMSM Unavailable [address] + [place] [address] STARCHER, LEIGH Unavailable [address] + [place] [address] JMSM Unavailable [address] + [place] [address] STARCHER, LEIGH Unavailable [address] + [place] [address] JMSM Unavailable [address] + [place] [address] STARCHER, LEIGH Unavailable [address] + [place] [address] JMSM Unavailable [address] + [place] [address] STARCHER, LEIGH Unavailable [address] + [place] [address] JMSM Unavailable [address] + [place] [address] STARCHER, LEIGH Unavailable [address] + [place] [address] JMSM Unavailable [address] + [place] [address] STARCHER, LEIGH Unavailable [address] + [place] [address] JM Unavailable [address] + [place] [address] STARCHER, LEIGH Unavailable [address] + [place] [address] JMSM Unavailable [address] + [place] [address] STARCHER, LEIGH Unavailable [address] + [place] [address] JMSM Unavailable [address] + [place] [address] STARCHER, LEIGH Unavailable [address] + [place] [address] Care Team Providers Name Role Phone Yamileth Mott Attending Unavailable Yamileth Mott Referring Unavailable Oleghe, Efewongbe Primary Care Unavailable Ayala Parker Attending Unavailable Oleghe, Efewongbe Referring Unavailable Oleghe, Efewongbe Attending Unavailable Primay Care Physicia, No Referring Unavailable Primay Care Physicia, No Primary Care Unavailable Cristofer Juárez Admitting Unavailable Cristofer Juárez Attending Unavailable Cristofer Juárez Referring Unavailable Oleghe, Efewongbe Primary Care Unavailable Ayala Parker Attending Unavailable Primay Care Physicia, No Referring Unavailable Primay Care Physicia, No Primary Care Unavailable Ayala Parker Attending Unavailable ElenaAyala Referring Unavailable Oleghe, Efewongbe Primary Care Unavailable Elena, Molly Attending Unavailable Oleghe, Efewongbe Primary Care Unavailable Castro Padilla Attending Unavailable Marquita, Cristofer Referring Unavailable Oleghe, Efewongbe Attending Unavailable Oleghe, Efewongbe Referring Unavailable Oleghe, Efewongbe Attending Unavailable Oleghe, Efewongbe Referring Unavailable Oleghe, Efewongbe Primary Care Unavailable Oleghe, Efewongbe Attending Unavailable Oleghe, Efewongbe Referring Unavailable Oleghe, Efewongbe Primary Care Unavailable Beatriz Martinez Attending Unavailable Oleghe, Efewongbe Referring Unavailable PROBLEMS PROBLEMS DATE TYPE CONDITION / CODE ATTENDING STATUS SOURCE 05/31/2018 Unknown Z12.4 - Encounter Ayala Parker Active [place] for screening for Community malignant neoplasm Hospital of cervix / Repository Z12.4(ICD-10) 05/16/2018 Unknown Z12.31 - Encounter Tiera, Active [place] for screening [facility] mammogram for Hospital malignant neoplasm Repository of breast / Z12.31(ICD-10) 02/08/2018 Unknown I10 - Essential Himanshu, Active [place] (primary) [facility] hypertension / Hospital I10(ICD-10) Repository 07/28/2017 Unknown Z96.641 - Presence Cristofer Juárez Active [place] of right artificial [facility] hip joint / Hospital Z96.641(ICD-10) Repository 07/28/2017 Unknown Z96.642 - Presence MarquitaCristofer Active [place] of left artificial [facility] hip joint / Hospital Z96.642(ICD-10) Repository 07/10/2017 Unknown Z30.431 - Encounter Ayala Parker Active [place] for routine [facility] checking of Hospital intrauterine Repository contraceptive device / Z30.431(ICD-10) 07/10/2017 Unknown R10.2 - Pelvic and [place], Ayala Active [place] perineal pain / Community R10.2(ICD-10) Hospital Repository 07/10/2017 Unknown N92.6 - Irregular [place], Ayala Active [place] menstruation, Community unspecified / Hospital N92.6(ICD-10) Repository 06/27/2017 Unknown Z01.818 - Encounter Himanshu, Active [place] for other [facility] preprocedural Hospital examination / Repository Z01.818(ICD-10) PROCEDURES PROCEDURES No Procedure Records FoundRESULTS RESULTS LABORER WHARF OFFICE VISIT Observed: 05/31/2018 Status: F Source: [place] REPORT 9:28 AM [facility] REPOSITORY [facility] [address] [place] [address]. [address] [place] [address] OFFICE VISIT Date of Service: 05/31/18 MR#: [id number] Acct: [id number] Name: MANDEEP MCRAE Rep #: [id number] : 1970 Provider: KD Parker Age/Sex: 47/F Location: [facility] Status: Signed Intake Vital Signs05/31/18 Body Mass Index (BMI) 30.8 05/31/18 Height 5 ft 10 in 05/31/18 Weight: 195 lb 8 oz 05/31/18 Body Mass Index (BMI) 28.0 05/31/18 Blood Pressure 122/84 H Intake Visit Reasons: ANNUAL Market Development Trainer Required: No Is patient in pain?: No Allergies No Known Allergies Allergy (Verified 05/31/18 09:05) Medications levonorgestrel 20 mcg/24 hr (5 years) intrauterine device 1 insert INTRAUTERINE ONCE 06/27/17 [History Confirmed 05/31/18] lisinopril 10 mg tablet 10 mg PO DAILY #90 tab 02/08/18 [Rx Confirmed 05/31/18] Is last menstrual period known: Yes Post menopausal: No Patient : No : No [facility] Medical History Chronic back pain (Chronic) Frequent headaches (Acute) Arthritis (Chronic) Seasonal allergies (Chronic) Hypertension (Chronic) Surgical History H/O bilateral hip replacements (Acute) Family History Father Cancer lyphoma Hyperlipemia Hypertension Mother Hypertension Arthritis Grandfather Colon cancer Grandfather Heart disease Social History Smoking Status: Never smoker alcohol intake: current alcohol intake frequency: a few times a week Alcohol type: wine, beer details: social substance use type: does not use caffeine: Yes what type of physical activity do you participate in: none seatbelt use: always do you feel safe at home: Yes additional social history: Leigh- Daily Record Patient works at [employer] Pregancy History 1 Elective abortions Hx Para 1 Spontaneous abortions Past Pregnancies Del. DatName GA/WeeksOutcome Route [facility] LocaProviderFOB e ht en ia tn Unknown 2002 Dev live birNSVD Male on l term HPI ANNUAL: Details: MANDEEP MCRAE is a 47 year old who presents for annual exam. Last PAP: unsure History of abnormal PAP: no Last mammogram: recent History of abnormal mammogram: no Contraception: IUD-rare light menses Female Reproductive History Questions: Metorrhagia: No, Sexually active: Yes, Dyspareunia: No, PCB: No ROS Const Constitutional: Denies fatigue, weight gain or weight loss Cardio Card: Denies chest pain Resp Resp: Denies cough or shortness of breath with activity GI GI: Denies abdominal pain, constipation, change in stools, vomiting or bloating : Reports as per HPI; denies urinary frequency, pelvic pain, urinary urgency, vaginal discharge, vaginal itching, urinary incontinence or difficulty urinating Exam Const General: cooperative, healthy appearing, no acute distress, well developed Orientation: alert, oriented to person, oriented to place HENAZ Head: normal to inspection Neck Neck: normal visual inspection Thyroid: thyroid normal Lymphatic: no lymphadenopathy noted Chest Breast inspection: normal inspection of the breasts, normal inspection of the axillae Breast palpation: normal palpation of the breasts, normal palpation of the axillae, no axillary lymphadenopathy Resp Effort AND Inspection: normal respiratory effort GI Palpation: soft, nontender, no masses Rectal Exam: deferred External Female Exam: normal external appearance, normal appearance of the urethra Urethra: normal appearance of the urethra, normal palpation Speculum Exam - Vagina: normal appearance of the vagina, normal vaginal discharge Speculum Exam - Cervix: normal appearance of the cervix Bimanual Exam- Vagina AND Uterus: normal bimanual exam, uterine size normal, uterine shape normal, uterus non-tender Bimanual Exam- Adnexa, other: normal adnexae, no adnexal masses, adnexae non-tender, pelvic support normal Pelvic Support: normal Neuro General: alert, oriented x3 Psych Affect: normal affect Assessment AND Plan Problems 1. Encounter for gynecological examination without abnormal finding Z01.419 2. Pap smear for cervical cancer screening Z12.4 Plan Completed breast and pelvic exam Reviewed diet and exercise Pap thin prep pap with HPV Mammogram recent Contraception IUD RTO 1 year, prn with problems Ayala Parker RAILROAD MECHANIC Coding Level of Care Code Off vis,est,prev 40-64yrs Diagnoses Encounter for gynecological examination without abnormal finding Z01.419 Gynecological examination findings: abnormal findings ABSENT Pap smear for cervical cancer screening Z12.4 05/31/18 0928 <Electronically signed by Ayala REYES> Date Ayala La Conner CLERK GENERAL-C Cosigner Signature: Date (if applicable) CC: PAP IG HPV APTIMA Collected: 05/31/2018 Status: F Source: [place] 16/18,45 8:45 AM [facility] Order Comment: CYTOLOGY INFORMATION: - CLINICAL INFORMATION: - DATE LMP/MENOPAUSE: - COLLECTION VIAL: Thin Prep Vial - RESIDENCY DIRECTOR SOURCE: CERVICAL - COLLECTION TECHNIQUE: BRUSH/SPATULA Specimen Comment: [id number] Specimen Comment: Source.............Cervix Specimen Comment: No. of containers..01 ThinPrep Vial TYPE CODE TESTS RESULT OUT OF RANGE REFERENCE UNITS LAB L7400.0800 . Normal DIAGN Comment Result Comment: NEGATIVE FOR INTRAEPITHELIAL LESION AND MALIGNANCY. LAB L7400.0900 . Normal ADEQ Comment Result Comment: Satisfactory for evaluation. Endocervical and/or squamous metaplastic cells (endocervical component) are present. Areas of partially obscuring inflammtory exudate are present. LAB L7400.1400 . Normal PERFORM Comment Result Comment: Tia Sahu Mining Manager (ASCP) LAB L7400.2575 . Normal TEST METHOD Comment Result Comment: This liquid based ThinPrep(R) pap test was screened with the use of an image guided system. LAB L7400.2600 . Normal . COMM LAB L7400.2700 . Normal PAPSMR Comment Result Comment: The Pap smear is a screening test designed to aid in the detection of premalignant and malignant conditions of the uterine cervix. It is not a diagnostic procedure and should not be used as the sole means of detecting cervical cancer. Both false-positive and false-negative reports do occur. LAB L7400.2760 Negative Normal HPV APTIMA, Negative HR Result Comment: This test detects fourteen high-risk HPV types (16/18/31/33/35/39/45/ 51/52/56/58/59/66/68) without differentiation. Performed at: [address] [id number] Endless Steamer Tender: Landy Keller MD, Phone: [phone] Performed at: [facility] [address] [place] [id number] End[employer] Steamer Tender: Landy Keller MD, Phone: [phone] Performed By: #### L7400.0280 #### [facility] (refer to report for specific site) refer to report for address and phone number SCREENING MAMM (CAD), Observed: 05/15/2018 Status: F Source: [place] BILAT 5:10 PM [facility] Imaging Services [address] [place] [address] SCREENING MAMM (CAD), BILAT MR#: [id number] Acct: [id number] Name: MANDEEP MCRAE Rep #: [id number] : 1970 F 47 From: Aidan Wheeler MD PCP: Kendrick Downs MD Status: REG CLI Study: SCREENING MAMM (CAD), BILAT Date of Exam: 05/15/18 Exam# [id number] Ordering Dr: Yamileth Mott MD MAMMOGRAPHY - BILATERAL SCREENING REASON FOR EXAM: Female, 47 years old. Routine annual screening examination. PERTINENT HISTORY: Non-contributory. TECHNIQUE: Digital bilateral breast raymond (3D mammographic acquisition) in the CC and MLO projections. 2-D mediolateral oblique (MLO) and craniocaudad (CC) views of both breasts were obtained. CAD: Full Field Digital Mammography with Computer Added Detection was performed. COMPARISON: Comparison is made with prior artery examination dated October 04, 2016. FINDINGS: Breast Composition: The breasts are heterogeneously dense, which may obscure small masses. There are no dominant masses or suspicious calcifications. Stable bilateral axillary lymph nodes. No other significant abnormalities are identified. There has been no significant change since the prior study. BI/SCREENING MAMM (CAD), BILAT IMPRESSION: Stable bilateral screening mammogram. Yearly follow-up mammogram recommended. (A) ASSESSMENT CATEGORY: BIRADS Category 2: Benign. A letter regarding these results will be sent to the patient by the facility within 30 days. Approximately 10% of breast cancers are not detected by mammography. A normal mammogram should not delay biopsy of a clinically suspicious abnormality. [id number] Electronically Signed: Aidan Wheeler MD at 8:16 EST Tel [phone], Service support , CC: Kendrick Downs MD; Yamileth Mott MD Assembler For Puller Over Hand: Signed URGENT CARE VISIT Observed: 04/22/2018 Status: F Source: [place] REPORT 4:27 PM [facility] [address] [place] [id number] OFFICE VISIT Date of Service: 04/22/18 MR#: [id number] Acct: [id number] Name: MANDEEP MCRAE Rep #: [id number] : 1970 Provider: PAZ Martinez Age/Sex: 47/F Location: [place] Status: Signed Intake Vital Signs04/22/18 Height 5 ft 7.5 in Intake Visit Reasons: rash around waist Chief Complaint: rash around right side of chest Allergies No Known Allergies Allergy (Verified 04/22/18 11:28) Medications levonorgestrel 20 mcg/24 hr (5 years) intrauterine device 1 insert INTRAUTERINE ONCE 06/27/17 [History Confirmed 04/22/18] lisinopril 10 mg tablet 10 mg PO DAILY #90 tab 02/08/18 [Rx Confirmed 04/22/18] PFSH Medical History Chronic back pain (Chronic) Frequent headaches (Acute) Arthritis (Chronic) Seasonal allergies (Chronic) Hypertension (Chronic) Surgical History H/O bilateral hip replacements (Acute) Family History Father Cancer lyphoma Hyperlipemia Hypertension Mother Hypertension Arthritis Grandfather Colon cancer Grandfather Heart disease Social History Smoking Status: Never smoker alcohol intake: current alcohol intake frequency: a few times a week Alcohol type: wine, beer details: social substance use type: does not use caffeine: Yes what type of physical activity do you participate in: none seatbelt use: always do you feel safe at home: Yes additional social history: Leigh- Daily Record Patient works at [employer] Chief Complaint: rash around right side of chest Details: MANDEEP MCRAE, is a 47 F who presents to the office today for a right side off chest rash first noted yesterday. She states she felt a burning sensation a few days earlier and thought it was due to her bra rubbing so didnt give it much attention. She state last niggght she first noted a rash on right side off her back just below her bra line. This morning she notes the rash has spread along the right side of her chest and anteriorly. It all remains on the right side of her chest and does not cross the midline. Pain scale is 3-4/10, low grade burning /itching sensation. NO drainage noted. She did have bilateral hip replacements in 06/2017. ROS Const Constitutional: No body ache, chills, fatigue, fever(s), night sweats, change in appetite, weakness, frequent falls, headache(s) or excessive sweating Eyes Eyes: No visual disturbances, light sensitivity, eye pain or change in vision ENT ENT: No ear pain, ear discharge, hearing loss, dizziness/vertigo, nasal discharge, difficulty swallowing, sore throat, neck pain or headache(s) Resp Respiratory: No cough, chest congestion, hemoptysis, shortness of breath or wheezing Cardio Cardiology: No shortness of breath, irregular heart rhythm, lightheadedness, chest pain at rest, chest pain with exertion, generalized swelling, orthopnea, palpitations or excessive sweating Gastro GI: No difficulty swallowing, abdominal pain, bloating, change in bowel habits, diarrhea, blood in stool, Black,tarry stools, nausea/dyspepsia or vomiting Genitourinary-Female: No burning urination, urinary frequency, urinary urgency, blood in urine or Vaginal Itching Musc Musculoskeletal: No joint pain, back pain, numbness, tingling or neck pain Skin Skin: Positive for itching and rash; no lesions Neuro Neurology: No visual disturbances, numbness, tingling, abnormal speech, confusion, unsteady gait/balance, dizziness, weakness, frequent falls, loss of vision or headache(s) Psych Psychiatric: No change in appetite, No confusion, No anxiety, No depression Endo Endocrine: No fatigue, cold intolerance, excessive sweating, flushing, heat intolerance or increased thirst/drinking Aller/Imm Allergy/Immunologic: Positive for itchy eyes; no wheezing, food intolerance, seasonal allergy symptoms or hives Prabhu/Lymp Hematologic/Lymphatic: No easy bruising Exam Const General: cooperative, no acute distress Orientation: alert, oriented x3 HENMT Head: normal to inspection, normocephalic Ears: hearing grossly normal bilaterally, external ears normal, TM normal on the right, TM normal on the left Nose: nasal mucous membranes and turbinates normal, no nasal discharge Face and sinus: normal facial exam, sinuses nontender Mouth: oral mucosae normal, oropharynx normal, tongue normal Throat: posterior oropharynx normal Eyes General: appearance normal, both eyes and all related structures Eyelids: eyelids normal Conjunctivae: conjunctivae normal Sclera: sclerae normal Pupils: PERRL EOM: EOM intact bilaterally Direct ophthalmoscopy: normal light reflex, no photophobia Neck Neck: normal visual inspection, full ROM, supple, no lymphadenopathy Neck mass: No Lymphatic: no lymphadenopathy noted Chest Chest palpation AND inspection: normal inspection of the chest Resp Effort AND Inspection: normal respiratory effort, able to speak in complete sentences, symmetric chest movement, no audible wheezes, no cough, not labored, no respiratory distress Auscultation: Bilateral: Clear to Auscultation Cardio Rate: regular rate Rhythm: regular rhythm Heart Sounds: S1 normal, S2 normal GI Inspection: normal to inspection Auscultation: normal bowel sounds Palpation: soft, no hepatosplenomegaly, no pulsatile masses Rectal Exam: other (no rash on abdomen) Musc Musculoskeletal: No joint tenderness or joint redness Skin Rashes: rashes noted (linear rash extends from post midline around to front midline) Other: rash is erythematous, tiny vesicular,raised. Does not cross midline. Minimally tender/itchy. Neuro General: alert, oriented x3, moves all extremities Cognition: normal cognition Speech: speech normal Gait: normal gait Motor: muscle tone normal throughout Sensory Exam: no sensory deficits noted Extrem General: normal to inspection Psych Appearance: grossly normal, well kempt Mental Status: mental status grossly normal Affect: normal affect Speech and Movement: speech and movement normal Attitude: cooperative Thought Process: normal Thought Content: normal Judgment: judgment good Assessment AND Plan Problems 1. Herpes zoster without complication B02.9 Plan Valtrex 1gram # 21 called to pharmacy take 1 every 8 hours for one week Rec: F/u with PCP to confirm and let him follow the remaining course (may get worse etc..) Coding Level of Care Code Off vis,new,level 3 Diagnoses Herpes zoster without complication B02.9 Herpes zoster complications: without complications 04/22/18 1627 <Electronically signed by Beatriz MULLEN> Date Beatriz MULLEN Cosigner Signature: Date (if applicable) CC: INTERNAL MEDICINE Observed: 02/09/2018 Status: F Source: [facility] OFFICE VISIT 4:54 PM [facility] Medicine [address] [place] [address] [place] [address] OFFICE VISIT Date of Service: 02/08/18 MR#: [id number] Acct: [id number] Name: MANDEEP MCRAE Rep #: [id number] : 1970 Provider: Kendrick Downs MD Age/Sex: 47/F Location: [facility] Status: Signed Intake Vital Signs02/08/18 Height 5 ft 9 in Intake Visit Reasons: 3 mo fu Chief Complaint: follow-up visit Is patient in pain?: No Allergies No Known Allergies Allergy (Verified 07/14/17 13:04) Medications levonorgestrel 20 mcg/24 hr (5 years) intrauterine device 1 insert INTRAUTERINE ONCE 06/27/17 [History Confirmed 07/14/17] lisinopril 10 mg tablet 10 mg PO DAILY #90 tab 02/08/18 [Rx Confirmed 02/08/18] Is last menstrual period known: Yes PFSH Medical History Chronic back pain (Chronic) Frequent headaches (Acute) Arthritis (Chronic) Seasonal allergies (Chronic) Hypertension (Chronic) Surgical History H/O bilateral hip replacements (Acute) Family History Father Cancer lyphoma Hyperlipemia Hypertension Mother Hypertension Arthritis Grandfather Colon cancer Grandfather Heart disease Social History Smoking Status: Never smoker alcohol intake: current alcohol intake frequency: a few times a week Alcohol type: wine, beer details: social substance use type: does not use caffeine: Yes what type of physical activity do you participate in: none seatbelt use: always do you feel safe at home: Yes additional social history: Leigh- Daily Record Patient works at [employer] Chief Complaint: follow-up visit Details: MANDEEP MCRAE, is a 47yo F who presents to the office today for follow-up of her chronic medical conditions. Recently had adjustments made to her lisinopril. Blood pressure at this time is optimal. ROS Const Constitutional: No weight change, body ache, chills, fatigue, sleep problems, fever(s), change in appetite, snoring, weakness, frequent falls or excessive sweating Eyes Eyes: No change in vision, eye pain, light sensitivity or blurry vision ENT ENT: No abnormal hearing, ear pain, tinnitus, nasal congestion, sore throat or neck pain Resp Respiratory: No snoring, cough, shortness of breath or wheezing Cardio Cardiology: No excessive sweating, chest pain at rest, chest pain with exertion, shortness of breath, dyspnea on exertion, palpitations, orthopnea or lightheadedness Gastro GI: No abdominal pain, change in bowel habits, constipation, diarrhea, vomiting, nausea/dyspepsia or cramping Genitourinary-Female: No burning urination, painful urination, urinary incontinence, urinary frequency, abnormal vaginal bleeding, pelvic pain or other Musc Musculoskeletal: No neck pain, abnormal walking, joint pain, back pain, limited range of motion, numbness or tingling Skin Skin: No redness, dry skin, itching, lesions, wounds or rash Neuro Neurology: No weakness, frequent falls, abnormal hearing, abnormal walking, numbness, tingling, abnormal speech, dizziness or memory loss Psych Psychiatric: No change in appetite, No memory loss, No anxiety, No depression, No Thoughts of harming yourself/Others Endo Endocrine: No fatigue, excessive sweating, cold intolerance, increased thirst/drinking, heat intolerance, flushing or increased hunger Aller/Imm Allergy/Immunologic: No wheezing, itchy eyes, hives or seasonal allergy symptoms Prabhu/Lymp Hematologic/Lymphatic: No easy bleeding, easy bruising or enlarged lymph nodes Exam Const General: cooperative, no acute distress, well developed Orientation: alert, awake, oriented x3 HENMT Head: atraumatic, normocephalic Ears: hearing grossly normal bilaterally Resp Effort AND Inspection: normal respiratory effort, able to speak in complete sentences Auscultation: Bilateral: Clear to Auscultation Cardio Rate: regular rate Rhythm: regular rhythm Heart Sounds: S1 normal, S2 normal GI Palpation: soft (Non tender), no hepatosplenomegaly Neuro General: alert, awake, oriented x3, moves all extremities, CN's II-XI intact bilaterally Extrem General: no clubbing, cyanosis or edema Psych Appearance: grossly normal Mental Status: mental status grossly normal Affect: normal affect Assessment AND Plan 1. Hypertension I10 Plan Optimally controlled. Continue current medication and lifestyle/dietary modifications. Orders Orders: 2. Chronic back pain M54.9; G89.29 Plan Stable. Continue current management. 3. Health care maintenance Z00.00 Plan Will get flu shots at work. Works at [employer] Scheduled to follow-up with [facility] for Pap and mammogram. This note was generated with [employer] dictation software. It may contain incorrect words, spelling, and punctuation that were not noted in checking the note before signing. Plan Detail Other Medications New: Follow Up 6 Months Coding Level of Care Code Off vis,est,level 3 Diagnoses Hypertension I10 Chronic back pain M54.9; G89.29 Health care maintenance Z00.00 02/09/18 8664 <Electronically signed by Kendrick Downs MD> Date Kendrick Downs MD Cosigner Signature: Date (if applicable) CC: INTERNAL MEDICINE Observed: 09/22/2017 Status: F Source: [facility] OFFICE VISIT 8:32 AM [facility] [address] [place] [address] [place] [address] OFFICE VISIT Date of Service: 09/19/17 MR#: [id number] Acct: [id number] Name: MANDEEP MCRAE Rep #: [id number] : 1970 Provider: Kendrick Downs MD Age/Sex: 46/F Location: [facility] Status: Signed Intake Vital Signs09/19/17 Height 5 ft 9 in Intake Visit Reasons: 2 MON F/U Chief Complaint: follow-up visit Is patient in pain?: No Allergies No Known Allergies Allergy (Verified 07/14/17 13:04) Medications levonorgestrel 20 mcg/24 hr (5 years) intrauterine device 1 insert INTRAUTERINE ONCE 06/27/17 [History Confirmed 07/14/17] lisinopril 5 mg tablet 10 mg PO QDAY tab 09/19/17 [History Confirmed 09/19/17] PFSH Medical History Chronic back pain (Chronic) Frequent headaches (Acute) Arthritis (Chronic) Seasonal allergies (Chronic) Hypertension (Chronic) Surgical History H/O bilateral hip replacements (Acute) Family History Father Cancer lyphoma Hyperlipemia Hypertension Mother Hypertension Arthritis Grandfather Colon cancer Grandfather Heart disease Social History Smoking Status: Never smoker alcohol intake: current alcohol intake frequency: a few times a week Alcohol type: wine, beer details: social substance use type: does not use caffeine: Yes what type of physical activity do you participate in: none seatbelt use: always do you feel safe at home: Yes additional social history: Leigh- Daily Record Patient works at [employer] [facility] Chief Complaint: follow-up visit Details: MANDEEP MCRAE, is a 46yo F who presents to the office today for follow up of her BP. She successfully had bilateral hip replacement on 07/25 and has been ambulating without difficulty. Blood pressure in office is still elevated. She is currently on 5 mg of Lisinopril daily. ROS Const Constitutional: No weight change, body ache, chills, fatigue, sleep problems, fever(s), change in appetite, snoring, weakness, frequent falls, headache(s) or excessive sweating Eyes Eyes: No change in vision, eye pain, light sensitivity or blurry vision ENT ENT: No headache(s), abnormal hearing, ear pain, tinnitus, nasal congestion, sore throat or neck pain Resp Respiratory: No snoring, cough, shortness of breath or wheezing Cardio Cardiology: No excessive sweating, chest pain at rest, chest pain with exertion, shortness of breath, dyspnea on exertion, palpitations, orthopnea or lightheadedness Gastro GI: No abdominal pain, change in bowel habits, constipation, diarrhea, vomiting, nausea/dyspepsia or cramping Genitourinary-Female: No burning urination, painful urination, urinary incontinence, urinary frequency, abnormal vaginal bleeding, pelvic pain or other Musc Musculoskeletal: No neck pain, abnormal walking, joint pain, back pain, limited range of motion, numbness or tingling Skin Skin: No redness, dry skin, itching, lesions, wounds or rash Neuro Neurology: No weakness, frequent falls, headache(s), abnormal hearing, abnormal walking, numbness, tingling, abnormal speech, dizziness or memory loss Psych Psychiatric: No change in appetite, No memory loss, No anxiety, No depression, No Thoughts of harming yourself/Others Endo Endocrine: No fatigue, excessive sweating, cold intolerance, increased thirst/drinking, heat intolerance, flushing or increased hunger Aller/Imm Allergy/Immunologic: No wheezing, itchy eyes, hives or seasonal allergy symptoms Prabhu/Lymp Hematologic/Lymphatic: No easy bleeding, easy bruising or enlarged lymph nodes Exam Const General: cooperative, no acute distress, well developed Orientation: alert, awake, oriented x3 [facility] Head: atraumatic, normocephalic Ears: hearing grossly normal bilaterally Resp Effort AND Inspection: normal respiratory effort, able to speak in complete sentences Auscultation: Bilateral: Clear to Auscultation Cardio Rate: regular rate Rhythm: regular rhythm Heart Sounds: S1 normal, S2 normal GI Palpation: soft (Non tender), no hepatosplenomegaly Neuro General: alert, awake, oriented x3, moves all extremities, CN's II-XI intact bilaterally Extrem General: no clubbing, cyanosis or edema Psych Appearance: grossly normal Mental Status: mental status grossly normal Affect: normal affect Assessment AND Plan 1. Hypertension I10 Plan Still not optimally controlled. Increase Lisinopril to 10mg daily. Continue life style modifications. BMP in 2 weeks. Follow up in 6 weeks. Orders Orders: 2. Chronic back pain M54.9; G89.29 Plan More pronounced since surgery. Undergoing physical therapy. Tylenol/NSAIDs for pain. Will monitor. This note was generated with [facility] software. It may contain incorrect words, spelling, and punctuation that were not noted in checking the note before signing. Plan Detail Other Medications Changed: Follow Up 6 Weeks Coding Level of Care Code Off vis,est,level 3 Diagnoses Hypertension I10 Chronic back pain M54.9; G89.29 09/22/17 0832 <Electronically signed by Kendrick Downs MD> Date Kendrick Downs MD Cosigner Signature: Date (if applicable) CC: DISCHARGE SUMMARY Observed: 07/28/2017 Status: F Source: [place] 4:12 PM [facility] Medical Records Department [address] [place] [address] Discharge Summary 07/28/17 0720 MR#: [id number] Acct: [id number] Name: MANDEEP MCRAE Rep #: [id number] : 1970 46 From: Rg Zuluaga PA-C PCP: Kendrick Downs MD Status: DIS IN Y Location: WA3 [id number] Discharge Date and Diagnosis Date of Admission: 07/25/17 Date of Discharge: 07/28/17 - Primary Discharge Diagnosis Bilateral total hip arthroplasty - Secondary Discharge Diagnosis Chronic Problems (Last Reviewed 07/10/17 @ 14:55 by Shana Mcgovern) Chronic back pain (Chronic) Arthritis (Chronic) Seasonal allergies (Chronic) Hypertension (Chronic) Hospital Course and Treatment Summary of Care Provided: Patient is a 46-year-old female who had bilateral hip osteoarthritis. After failing conservative measures, the patient opted to proceed with a bilateral total hip arthroplasty. The patient underwent the above-stated procedure on July 25, 2017. Patient did receive perioperative antibiotics. Intraoperatively was uneventful. For details please see dictated operative note. The patient was placed in thigh-high teds, bilateral SCDs, remained stable in recovery. Patient was admitted to the 3rd floor at [facility]. The patient's pain was managed with the use of IV and p.o. pain medications. Patient participated in physical therapy. Patient did require transfusion of 2 units PRBC's on POD#2. Patient felt significantly better the next day and was asymptomatic. Patient was discharged on postoperative day #3 to home. Patient was given medications stated below. Patient will follow up with [facility] per postop instructions for reassessment. Discharge Diet: No Restrictions Discharge Activity: May Not Drive - while taking narcotic pain medications. May shower in (days): 1 - Turned dressings away from water Weight Bearing Status: Weight bearing as tolerated Additional Activity Instructions:: Wear elastic stockings for 2 weeks. DO NOT use alcohol with narcotic pain medication. DO NOT make important decisions while taking narcotic medication. If you have problems with taking your medication (rash, itching, nausea, etc.) call the office at once. Call your doctor if your incision/area has: Increased Pain/ Swelling, Increased Redness, Foul Smelling Discharge Call your doctor if you observe: Fever of 101 or Higher Remove Dressing in (days):: 2 - Okay to remove on July 30, 2017 Home Medications: Medications to take at Discharge levonorgestrel 20 mcg/24 hr (5 years) intrauterine device 1 insert INTRAUTERINE ONCE 06/27/17 Lisinopril [Prinivil] 5 mg PO QDAY 07/14/17 Acetaminophen [Tylenol] 1,000 mg PO Q8 #90 tab 07/28/17 Celecoxib [Celebrex] 200 mg PO BID #30 cap 07/28/17 Famotidine [Pepcid] 20 mg PO DAILY #30 tab 07/28/17 Oxycodone [Oxyir] 5 - 10 mg PO Q4H PRN PRN 7 Days #80 tab 07/28/17 Rivaroxaban [Xarelto] 10 mg PO DAILY@0600 #10 tab 07/28/17 Senna/Docusate Sodium [Senokot-S] 2 tab PO BID #20 tab 07/28/17 Following Prescrptions Were Given to Patient: Oxycodone [Oxyir] 5 - 10 mg PO Q4H PRN PRN 7 Days #80 tab PRN Reason: Mod-Severe Pain (-03/07) Acetaminophen [Tylenol] 1,000 mg PO Q8 #90 tab Famotidine [Pepcid] 20 mg PO DAILY #30 tab Rivaroxaban [Xarelto] 10 mg PO DAILY@0600 #10 tab Celecoxib [Celebrex] 200 mg PO BID #30 cap Senna/Docusate Sodium [Senokot-S] 2 tab PO BID #20 tab Primary Care Physician: Kendrick Downs MD [Primary Care Provider] - Please Follow Up With: [facility] physical therapy with Aneta When: 07/31/17 @ 9:00 am Please Follow Up With: Rg Zuluaga PA-C When: 08/07/17 @ 3:00 pm Additional Instructions: Follow [facility] postop instructions Meaningful Use Info Meaningful Use Diagnoses (Choose all that apply): None applicable 07/28/17 1612 <Electronically signed by Rg Zuluaga PA-C> Date Rg Zuluaga PA-C Cosigner Signature (if applicable): Date CC: Kendrick Downs MD; Rg MULLEN Signed DISCHARGE INSTRUCTION Observed: 07/28/2017 Status: F Source: [place] 7:19 AM [facility] Medical Records Department [address] [place] [address] Instructions for Home/Discharge Instructions 07/28/17 0717 MR#: [id number] Acct: [id number] Name: MANDEEP MCRAE Rep #: [id number] : 1970 46 From: Rg Zuluaga PA-C PCP: Kendrick Downs MD Status: ADM IN Discharge Diet: No Restrictions Discharge Activity: May Not Drive - while taking narcotic pain medications. May shower in (days): 1 - Turned dressings away from water Weight Bearing Status: Weight bearing as tolerated Additional Activity Instructions:: Wear elastic stockings for 2 weeks. DO NOT use alcohol with narcotic pain medication. DO NOT make important decisions while taking narcotic medication. If you have problems with taking your medication (rash, itching, nausea, etc.) call the office at once. Call your doctor if your incision/area has: Increased Pain/ Swelling, Increased Redness, Foul Smelling Discharge Call your doctor if you observe: Fever of 101 or Higher Remove Dressing in (days):: 2 - Okay to remove on July 30, 2017 Additional Instructions: Follow [facility] postop instructions Allergies/Adverse Reactions: Allergies No Known Allergies Allergy (Verified 07/14/17 13:04) Medications to take at Discharge levonorgestrel 20 mcg/24 hr (5 years) intrauterine device 1 insert INTRAUTERINE ONCE 06/27/17 Lisinopril [Prinivil] 5 mg PO QDAY 07/14/17 Acetaminophen [Tylenol] 1,000 mg PO Q8 #90 tab 07/28/17 Celecoxib [Celebrex] 200 mg PO BID #30 cap 07/28/17 Famotidine [Pepcid] 20 mg PO DAILY #30 tab 07/28/17 Oxycodone [Oxyir] 5 - 10 mg PO Q4H PRN PRN 7 Days #80 tab 07/28/17 Rivaroxaban [Xarelto] 10 mg PO DAILY@0600 #10 tab 07/28/17 Senna/Docusate Sodium [Senokot-S] 2 tab PO BID #20 tab 07/28/17 The following prescriptions were given: Oxycodone [Oxyir] 5 - 10 mg PO Q4H PRN PRN 7 Days #80 tab PRN Reason: Mod-Severe Pain (-03/07) Acetaminophen [Tylenol] 1,000 mg PO Q8 #90 tab Famotidine [Pepcid] 20 mg PO DAILY #30 tab Rivaroxaban [Xarelto] 10 mg PO DAILY@0600 #10 tab Celecoxib [Celebrex] 200 mg PO BID #30 cap Senna/Docusate Sodium [Senokot-S] 2 tab PO BID #20 tab Primary Care Physician: Kendrick Downs MD [Primary Care Provider] - Please Follow Up With: [place] [facility] physical therapy with Aneta When: 07/31/17 @ 9:00 am Please Follow Up With: Rg Zuluaga PA-C When: 08/07/17 @ 3:00 pm 07/28/17 0719 <Electronically signed by Rg Zuluaga PA-C> Date Rg Zuluaga PA-C CC: Kendrick Downs MD CBC-COMPLETE BLOOD CNT Collected: 07/28/2017 Status: F Source: [place] NO DIFF 5:40 AM [facility] [place] [facility] TYPE CODE TESTS RESULT OUT OF RANGE REFERENCE UNITS LAB L100.1000 4.4-11.0 K/mm3 Normal WBC 7.7 LAB L100.1200 4.2-5.4 M/mm3 Low RBC 3.11 LAB L100.1300 12.0-15.0 g/dl Low HGB 9.1 LAB L100.1400 37-47 % Low HCT 27.7 LAB L100.1500 81-99 fL Normal MCV 89.1 LAB L100.1600 27.0-32.0 pg Normal MCH 29.3 LAB L100.1700 32-36 g/gl Normal MCHC 32.9 LAB L100.1810 11.6-14.6 % High RDW CV 15.6 LAB L100.1820 35.1-43.9 fl High RDW SD 49.3 LAB L100.1900 150-450 K/mm3 Low PLT 146 LAB L100.2000 6.2-12.0 fl Normal MPV 11.2 Performed By: #### L100.0500 #### [facility] [address] [place], [address] TYPE AND SCREEN Collected: 07/27/2017 Status: F Source: [place] 9:10 AM [facility] Order Comment: CMV NEG? N Number of units to transfuse: 2 Is there a >20% drop in pt's BP? Y Is the pt's CVP (central venous pressure) <3 cm/H2O? N Is the EBL >/= 1000ml in adults or >/= 12ml/kg in children? N Is there an orthostatic change in pt's BP(SBP drop >10mmHg)? Y Is pt's HR > 100 bpm? N Reason for Ordering Blood: Acute Are the blood/blood products to be transfused? Y Is the patient having/had surgery? Y Give When? When Ready Irradiated? N Leukodepleted? Y TYPE CODE TESTS RESULT OUT OF RANGE REFERENCE UNITS LAB B10.0800 A Normal BLOOD TYPE GEL POSITIVE LAB B100.4000 Normal Antibody NEGATIVE Screen Performed By: #### B101.7450 #### [facility] [address] [place], [address] Collected: 07/27/2017 Status: F Source: [place] 9:10 AM [facility] [place] TYPE CODE TESTS RESULT OUT OF REFERENCE UNITS RANGE LAB U100.0000 [id number] TRANSFUSED PRODUCT: T AND S with Crossmatch, Red Cells COUNT: 2 Performed By: #### U100.0000 #### [facility] - refer to report for specific site CBC-COMPLETE BLOOD CNT Collected: 07/27/2017 Status: F Source: [place] NO DIFF 5:58 AM [facility] TYPE CODE TESTS RESULT OUT OF RANGE REFERENCE UNITS LAB L100.1000 4.4-11.0 K/mm3 Normal WBC 7.4 LAB L100.1200 4.2-5.4 M/mm3 Low RBC 2.59 LAB L100.1300 12.0-15.0 g/dl Low HGB 7.5 LAB L100.1400 37-47 % Low HCT 23.7 LAB L100.1500 81-99 fL Normal MCV 91.5 LAB L100.1600 27.0-32.0 pg Normal MCH 29.0 LAB L100.1700 32-36 g/gl Low MCHC 31.6 LAB L100.1810 11.6-14.6 % Normal RDW CV 14.5 LAB L100.1820 35.1-43.9 fl High RDW SD 47.1 LAB L100.1900 150-450 K/mm3 Low PLT 140 LAB L100.2000 6.2-12.0 fl Normal MPV 11.1 Performed By: #### L100.0500 #### [facility] [address] [place], [place], [id number] CBC-COMPLETE BLOOD CNT Collected: 07/26/2017 Status: F Source: [place] NO DIFF 6:10 AM [facility] [place] TYPE CODE TESTS RESULT OUT OF RANGE REFERENCE UNITS LAB L100.1000 4.4-11.0 K/mm3 High WBC 14.6 LAB L100.1200 4.2-5.4 M/mm3 Low RBC 2.83 LAB L100.1300 12.0-15.0 g/dl Low HGB 8.2 LAB L100.1400 37-47 % Low HCT 25.8 LAB L100.1500 81-99 fL Normal MCV 91.2 LAB L100.1600 27.0-32.0 pg Normal MCH 29.0 LAB L100.1700 32-36 g/gl Low MCHC 31.8 LAB L100.1810 11.6-14.6 % Normal RDW CV 14.2 LAB L100.1820 35.1-43.9 fl High RDW SD 45.5 LAB L100.1900 150-450 K/mm3 Normal PLT 185 LAB L100.2000 6.2-12.0 fl Normal MPV 11.1 Performed By: #### L100.0500 #### [facility] [address] [place], [place], [id number] BASIC METABOLIC Collected: 07/26/2017 Status: F Source: [place] PROFILE (BMP) 6:10 AM [facility] [place] TYPE CODE TESTS RESULT OUT OF RANGE REFERENCE UNITS LAB L501.0100 74-106 mg/dL Normal GLU 98 Result Comment: Please note revised GLUCOSE reference range effective 2017. LAB L501.1000 7-18 mg/dL Normal BUN 12 LAB L501.1100 0.55-1.02 mg/dL Normal CREAT,SERUM 0.70 Result Comment: The validity of the calculated GFR AND GFRAA in patients over 70 years has not been determined. Clinical correlation is essential. LAB L501.1110 >60 mL/min Normal EST GFR 96 Result Comment: Non- GFR Calc LAB L501.1115 >60 mL/min Normal EST GFR - AA 116 Result Comment: GFR Calc LAB L501.1255 ml/min Normal Estimated CRCL 103.83 LAB L501.1300 10-20 RATIO BUN/CRE Normal 17.2 LAB L501.2200 8.5-10 mg/dL Low .1 CA 8.3 LAB L501.5300 136-14 mmol/L 5 NA Normal 142 LAB L501.5600 3.5-5. mmol/L 1 K Normal 4.1 LAB L501.5900 98-107 mmol/L High CL 110 LAB L501.6100 21.0-3 mmol/L 2.0 CO2 Normal 25.0 LAB L501.6200 5-15 GAP Normal 7 Performed By: #### L500.2500 #### [facility] [address] [place], [address] HIPS B/L MIN 2 Observed: 07/25/2017 Status: F Source: [place] VIEWS W/ PELVIS 2:51 PM [facility] Imaging Services [address] [place] [address] Hips B/L min 2 views w/ Pelvis MR#: [id number] Acct: [id number] Name: MANDEEP MCRAE Rep #: [id number] : 1970 F 46 From: Timothy Kiser DO PCP: Kendrick Downs MD Status: ADM IN Study: Hips B/L min 2 views w/ Pelvis Date of Exam: 07/25/17 Exam# [id number] Ordering Dr: Cristofer Juárez MD STUDY: X-RAY - PELVIS AND BILATERAL HIPS REASON FOR EXAM: Female, 46 years old. Postop from bilateral hip replacement TECHNIQUE: Radiological exam, hip, bilateral, with pelvis when performed; 2 views COMPARISON: 05/08/2017 FINDINGS: Patient is status post bilateral total hip arthroplasty. No evidence of acute hardware failure or loosening. Expected postoperative soft tissue changes are noted. Metallic IUD in the pelvic region. No evidence of fracture or dislocation. RAD/Hips B/L min 2 views w/ Pelvis IMPRESSION: Total hip arthroplasty as above bilaterally Electronically Signed: Timothy Kiser DO at 16:33 EST Tel , Service support , CC: Kendrick Downs MD; Cristofer Juárez MD Assembler For Puller Over Hand: Signed OPERATIVE REPORT Observed: 07/25/2017 Status: F Source: [place] 2:46 PM [facility] Medical Records Department [address] [place] [address] Operative Report 07/25/17 1127 MR#: [id number] Acct: [id number] Name: MANDEEP MCRAE Rep #: [id number] : 1970 46 From: Cristofer Juárez MD PCP: Kendrick Downs MD Status: ADM IN Location: [facility] [id number] Report of Operation Date of Procedure: 07/25/17 Pre-Operative Diagnosis: 1. Left hip secondary osteoarthritis. 2. Right hip secondary osteoarthritis Post-Operative Diagnosis: 1. Left hip secondary osteoarthritis. 2. Right hip secondary osteoarthritis Surgery/Procedure Performed:: 1. Left direct anterior total hip replacement. 2. Right direct anterior total hip replacement Description of Surgical Findings:: Stable hips with equal leg lengths network security officer: Rg Zuluaga Type of Anesthesia:: Spinal Anesthesiologist: Rachid Alexander Special Medications: 2 g Ancef, 1 g TXA at incision, 1 g TXA closure, 10 mg Decadron, joint cocktail (5 mg Duramorph, 30 mL of 0.5% Ropivicaine, 1000 units of epinephrine, 30 mg of Toradol) Specimen's removed: Bony cuts Estimated Blood Loss (mL): 300 Fluids Replaced: 2200 mL crystalloid Description of Procedure: Components used: Left 1. [place] nanette femoral stem size 5 2. [place] trident acetabular shell size 54 mm 3. [place] X3 polyethylene E 4. [place] Biolox delta 36mm, 0mm femoral head Right 1. [place] femoral stem size 5 2. [place] trident acetabular shell size 58 mm 3. [place] X3 polyethylene F 4. [place] Biolox delta 36mm, -2.5mm femoral head Brief history operative indications: 46 yo F who failed conservative measures for their hip osteoarthritis secondary to bilateral hip dysplasia. X-rays were consistent with bilateral dysplasia and osteoarthritis including joint space narrowing, osteophyte formation and subchondral cysts. Total hip replacement was discussed with the patient with risks and benefits including but not limited to blood loss, DVTs, PEs, neurovascular damage, dislocation, general risks of anesthesia including loss of life. Patient demonstrated an understanding medical clearance is obtained the patient was consented for surgery. Procedure: On the date of procedure the patient's B hips were marked in the preoperative area. Patient was then taken back to the operating room where anesthesia assumed control of the C-spine and airway and administered anesthetic. Patient was transferred to the operating table and placed in the supine position. The hips were placed at the break of the bed and a sacral bump was placed. The Mason lower extremities were then prepped out in a sterile fashion using chlorhexidine while the surgeon scrubbed. The PA was vital in the positioning of the patient. Upon reentering the room the mason lower extremities were draped in the standard orthopedic fashion and the incision was marked. A timeout was called and everyone agreed upon the side, the site, the procedure be performed, antibody given, and patient's identity. At this time incision was made through skin on the left side, subcutaneous tissue, and fat down to fascia. The fascia was then incised and the TFL was retracted laterally. A retractor was placed on the lateral border of the femoral neck. Attention was directed to the inferior portion of the approach and all crossing vessels were identified and appropriately coagulated. A retractor was then placed on the medial portion of the femoral neck. The anterior capsule was then cleared of all soft tissue and then H shaped capsulotomy was made. The retractors were then placed inside the capsule. The femoral neck was identified and a cleanup cut was made. At this time a power corkscrew was used to remove the femoral head. Attention was then turned toward the acetabulum where the soft tissues were appropriately retracted and the acetabulum was sequentially reamed to 53 mm. A 54 mm cup was then selected and impacted into place. Acetabular liner was impacted into place and locking mechanism was verified. The position of the acetabular cup was then verified under live fluoroscopy. Attention was then turned to the femur. Soft tissue releases on the medial and lateral femoral neck were appropriately done, the leg was externally rotated and lateralized. A Hopper retractor was placed medially and proximally to the greater trochanter this allowed appropriate visualization and exposure of the femoral canal. Rongeour was then used to remove excess lateral bone. A canal finder and entry broach were used to open the proximal canal. Once we verified we were down the femoral canal we subsequently broached up to a size 5 femur. The appropriate neck was placed in the previously selected head was trialed with a 0 mm neck. Traction was pulled and the hip was reduced with internal rotation. Once it was appropriately reduced and stability was checked. There was minimal shuck, equal leg lengths and appropriate stability with hyperextension and external rotation as well as with 90 flexion and internal rotation. Fluoroscopy was then also used to verify the position of the components and leg lengths using the contralateral side for comparison. The trial components were then dislocated the proximal femur was again exposed and the components were removed from the wound. The final components were verified and opened. The wound was copiously irrigated out with normal saline. The acetabulum was checked for any residual debris. The final components were placed and impacted. Traction and internal rotation were again used to reduce the hip. After adequate reduction the hip remained stable with appropriate leg lengths. The final components were once again checked with live fluoroscopy and were found to be satisfactory. The wound was then copiously irrigated with normal saline once more, and hemostasis was obtained. Closure was then done using #1 Vicryl runner to close the fascia. A 2-0 vicryl interuppted sutures were used to close the subcutaneous skin. A 3-0 Monocryl and Steri-Strips were used for final skin closure. A Silverlon dressing was placed. Our attention was then directed towards the right side at this time incision was made through skin, subcutaneous tissue, and fat down to fascia. The fascia was then incised and the TFL was retracted laterally. A retractor was placed on the lateral border of the femoral neck. Attention was directed to the inferior portion of the approach and all crossing vessels were identified and appropriately coagulated. A retractor was then placed on the medial portion of the femoral neck. The anterior capsule was then cleared of all soft tissue and then H shaped capsulotomy was made. The retractors were then placed inside the capsule. The femoral neck was identified and a cleanup cut was made. At this time a power corkscrew was used to remove the femoral head. Attention was then turned toward the acetabulum where the soft tissues were appropriately retracted and the acetabulum was sequentially reamed to 57 mm. A 58 mm cup was then selected and impacted into place. Acetabular liner was impacted into place and locking mechanism was verified. The position of the acetabular cup was then verified under live fluoroscopy. Attention was then turned to the femur. Soft tissue releases on the medial and lateral femoral neck were appropriately done, the leg was externally rotated and lateralized. A Hopper retractor was placed medially and proximally to the greater trochanter this allowed appropriate visualization and exposure of the femoral canal. Rongeour was then used to remove excess lateral bone. A canal finder and entry broach were used to open the proximal canal. Once we verified we were down the femoral canal we subsequently broached up to a size 5 femur. The appropriate neck was placed in the previously selected head was trialed with a -2.5 mm neck. Traction was pulled and the hip was reduced with internal rotation. Once it was appropriately reduced and stability was checked. There was minimal shuck, equal leg lengths and appropriate stability with hyperextension and external rotation as well as with 90 flexion and internal rotation. Fluoroscopy was then also used to verify the position of the components and leg lengths using the contralateral side for comparison. The trial components were then dislocated the proximal femur was again exposed and the components were removed from the wound. The final components were verified and opened. The wound was copiously irrigated out with normal saline. The acetabulum was checked for any residual debris. The final components were placed and impacted. Traction and internal rotation were again used to reduce the hip. After adequate reduction the hip remained stable with appropriate leg lengths. The final components were once again checked with live fluoroscopy and were found to be satisfactory. The wound was then copiously irrigated with normal saline once more, and hemostasis was obtained. Closure was then done using #1 Vicryl runner to close the fascia. A 2-0 vicryl interuppted sutures were used to close the subcutaneous skin. A 3-0 Monocryl and Steri-Strips were used for final skin closure. A Silverlon dressing was placed. Patient was awakened by anesthesia and transferred to the [facility]. Patient was then transferred to the PACU for recovery. Postoperative plan: Patient will get 24 hours postop antibiotics. Patient will get in-house physical therapy and will be weight-bear as tolerated. Patient will follow up in office in 2 weeks for a wound check and x-rays. During the course of the procedure the physician it assistant played a vital role. His intimate knowledge of my steps in the procedure aided in safe and expedient completion of the procedure. The PA played a vital rolls in positioning particularly in obtaining the appropriate positioning of the sacral bump. The PA was also vital in the retraction of soft tissues during the exposure and especially the femoral work as this is a vital part of the procedure to prevent complications and fractures. The PA was also vital and protecting soft tissues during times of bony cuts and reaming. He also played a vital role in closure with my direct supervision. The PA was also important during reduction and dislocation of the joint and trials intraoperatively. Grafts/Implants Used: [place] femoral stem - Complications none - Admit VTE Documentation VTE Present on Admission: No VTE Mechan Device Prophylaxis: SCD's, Thigh High MATHEUS Hose VTE Pharm Prophylaxis ordered?: Yes 07/25/17 1446 <Electronically signed by Cristofer Juárez MD> Date Cristofer Juárez MD CC: Kendrick Downs MD; Cristofer Juárez MD Signed ,URINE Collected: 07/25/2017 Status: F Source: MILAN 9:27 AM [facility] [place] TYPE CODE TESTS RESULT OUT OF REFERENCE UNITS RANGE LAB L400.8000 Negative Normal HCGUQUAL Negative Result Comment: Very dilute urine specimens, as indicated by a low specific gravity, may not contain ict sales representative levels of hCG. If is still suspected, a first morning urine specimen should be collected 48 hours later and tested. Performed By: #### L400.7600 #### [facility] [address] [place], [address] HIPS B/L MIN 2 Observed: 07/24/2017 Status: F Source: MILAN VIEWS W/ PELVIS 11:37 PM [facility] [place] [facility] Imaging Services [address] [place] [address] Hips B/L min 2 views w/ Pelvis MR#: [id number] Acct: [id number] Name: MANDEEP MCRAE Rep #: [id number] : 1970 F 46 From: Timothy Kiser DO PCP: Kendrick Downs MD Status: ADM IN Study: Hips B/L min 2 views w/ Pelvis Date of Exam: 07/25/17 Exam# [id number] Ordering Dr: Cristofer Juárez MD STUDY: X-RAY - PELVIS AND BILATERAL HIPS REASON FOR EXAM: Female, 46 years old. Bilateral total hip replacement TECHNIQUE: Radiological exam, hip, bilateral, with pelvis when performed; 3-4 views COMPARISON: None. FINDINGS: 3 intraoperative fluoroscopy images demonstrate bilateral hip replacement without evidence of acute hardware failure or loosening. No definitive fracture RAD/Hips B/L min 2 views w/ Pelvis IMPRESSION: Postsurgical changes of both hips as above Electronically Signed: Timothy Kiser DO at 15:11 EST Tel , Service support , CC: Kendrick Downs MD; Cristofer Juárez MD Assembler For Puller Over Hand: Signed HISTORY AND PHYSICAL Observed: 07/14/2017 Status: F Source: MILAN EXAM 2:01 PM [facility] [place] [facility] Medical Records Department [address] [place] [address] History and Physical 07/14/17 1350 MR#: [id number] Acct: [id number] Name: MANDEEP MCRAE Rep #: [id number] : 1970 46 From: Rg Zuluaga PA-C PCP: Kendrick Downs MD Status: PRE IN Y Location: [facility] History and Physical DATE OF SERVICE: 07/25/2017 SCHEDULED PROCEDURE: Bilateral total hip arthroplasty HISTORY OF PRESENT ILLNESS: This is a 46-year-old female who has had ongoing pain in bilateral hips for approximately 8-10 years. Pain is been constant, aching, stabbing, and sore. She has increased pain going up and down stairs, walking any amount of distance. Patient does have start up pain. Pain is located in bilateral groin as well as lateral hip and anterior thigh bilaterally. Patient has tried conservative measures consisting of rest ice with minimal relief. She has had a corticosteroid injection at the [facility] with minimal relief. 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 Patient has undergone an MRI which did show a labral tear. Patient was referred up to see a specialist for possible arthroscopy of the hip at the [facility]. The hip arthroscopy surgeon did not feel she is a good candidate for labral repair or debridement. Patient has difficult time with activities of daily living including housework, shopping, and leisure activities such as golf and long walks. Patient has tried oral medications consisting of Advil with minimal relief. She has lost approximately 25 pounds with no significant relief. She denies previous surgery on bilateral hips. After failing conservative measures and discussing all treatment options with Dr. Goldy Juárez the patient would like to proceed with a bilateral total hip arthroplasty. Patient currently denies any chest pain, shortness of breath, fevers chills, recent infections. Patient has medical history pertinent for hypertension. We are obtaining surgical clearance from patient's primary care physician. REVIEW OF SYSTEMS: ROS: Const: Denies change in appetite, fever,or weight change. CV: Denies chest pain, heart murmur and irregular heartbeat. Resp: Denies cough, pneumonia, SOB, tuberculosis and wheezing. GI: Denies constipation, diarrhea, difficulty swallowing, heartburn, nausea, bloody stools and vomiting. : . (F Genital Sx) Urinary: denies incontinence. Musculo: Reports trouble walking and weakness, but denies leg swelling and limp. Skin: Denies Raynaud's, history of shingles and tattoo. Neuro: Denies ambulatory dysfunction, dizziness, numbness/tingling and tremor. Psych: Denies anxiety, insomnia and stress. Prabhu/Lymph: Denies anemia, bleeding/bruising tendency and past transfusion. Reviewed, no changes. PAST MEDICAL HISTORY: Advance Care Plan: Other Directive, POA Effective Date: 05/18/2017 Other Directive, LIVING WILL Effective Date: 05/18/2017 PMH: Medical Problems: Arthritis, High Blood Pressure Accidents: None Surgical Hx: None Anesthesia Complications: None Assistive Devices: Contacts Reviewed, no changes. SOCIAL HISTORY: SH: Marital: .Occupation: Currently Working - [employer].Work Status: Currently Working.Hand Dominance: Right-handed. Personal Habits: Cigarette Use: Never Smoked Cigarettes.Alcohol: Currently consumes alcohol.Drug Use: Denies Use.Enjoy Exercising: Exercises 1- 3 x/month. Reviewed, no changes. VITALS: Ht: 69 Wt: 180lb Wt k.648 BMI: 26.6 BP: 138/88 Pulse: 66 Resp: 16 T: 98.2 T: 36.8C ALLERGIES: No Known Drug Allergy MEDICATIONS: Ultram 50 mg 1-2 by mouth q6 hour as needed pain, Lisinopril 5 mg 1 by mouth every day, Mirena (52 MG) 20 mcg/24HR PRE-OP EXAM: General appearance:NORMAL Other: Eyes: Conjunctivae and lids: NORMAL Pupils: ERR Ears, Nose, Mouth, and Throat: NORMAL Other: Inspection of lips, teeth and gums: NORMAL Other: Neck: Examination of neck: no masses noted. Respiratory: Assessment of respiratory effort: NORMAL Other: Ausculation of lungs: clear to ausculation no wheeses, ronchi or rales. Cardiovascular: Ausculation of heart: regular rate and rhythem, no mummurs, gallops or rubs. Exam of carotid arteries: NORMAL Other: Gastrointestinal: Exam of abdomen: soft, nontender, nondistended bowel sounds present. Lymphatic: Palpation of nodes in neck: NORMAL Other: Palpation of nodes in Axillae: NORMAL Other: Neurological: see below Psychiatric: Orientation to time, place and person: NORMAL Other: Mood and affect: NORMAL Other: PHYSICAL EXAMINATION: Patient does walk with an antalgic gait. She has a 5 flexion contracture of the right hip. Internal rotation is a 30 and external rotation 25 . Range of motion of the left hip reveals 90 flexion with internal rotation of 30 and external rotation of 35 . Leg lengths appear equal. Sensations intact to light touch. IMAGING STUDIES: 1. X-rays were obtained at [facility] on July 14, 2017 including AP pelvis as well as bilateral AP and crossfire lateral reveals bilateral hip dysplasia. There is residual joint space on the left however there is flattening over the central femoral head. On the right there is complete loss of joint space with acetabular rim fracture, subchondral sclerosis, and osteophyte formation. Bilateral femoral necks have varus angle. 2. MR arthrogram of the left hip reveals labral tear with labral cyst. IMPRESSION: 1. Bilateral hip osteoarthritis with hip dysplasia 2. Hypertension PLAN: Dr. Juárez did discuss and review with the patient all treatment options including surgical versus nonsurgical. Patient wishes to proceed with above- stated procedure. Potential risks, benefits, and complications of this procedure were discussed in detail including but not limited to , infection, nerve and blood vessel damage, persistent pain, numbness, tingling, paresthesias, blood clot, pulmonary embolism, and requirement for further surgery. The patient expressed full understanding has no further questions for the doctor. Patient does agree to proceed with the above-stated procedure and has signed the surgery consent form. ___ I have re-examined the patient. There are no clinical changes since date of exam. ___ See progress notes for changes. ___ Dictated on admission Date: Time: Signature: 07/14/17 1401 <Electronically signed by Rg Zuluaga PA-C> Date Rg Zuluaga PA-C Cosigner Signature: Date (if applicable) CC: Kendrick Downs MD; Rg MULLEN Signed CBC W/DIFF, AUTOMATED Collected: 07/14/2017 Status: F Source: NATO 1:45 PM [facility] [place] TYPE CODE TESTS RESULT OUT OF RANGE REFERENCE UNITS LAB L100.1000 4.4-11.0 K/mm3 Normal WBC 6.5 LAB L100.1200 4.2-5.4 M/mm3 Low RBC 4.17 LAB L100.1300 12.0-15.0 g/dl Low HGB 11.8 LAB L100.1400 37-47 % Low HCT 36.6 LAB L100.1500 81-99 fL Normal MCV 87.8 LAB L100.1600 27.0-32.0 pg Normal MCH 28.3 LAB L100.1700 32-36 g/gl Normal MCHC 32.2 LAB L100.1810 11.6-14.6 % Normal RDW CV 14.5 LAB L100.1820 35.1-43.9 fl High RDW SD 46.0 LAB L100.1900 150-450 K/mm3 Normal PLT 212 LAB L100.2000 6.2-12.0 fl Normal MPV 10.3 LAB L100.2100 47-70 % Normal NEUT% 64.8 LAB L100.2200 19-41 % Normal LY% 23.6 LAB L100.2300 0-10 % Normal MONO% 6.7 LAB L100.2400 0-5 % Normal EO% 4.1 LAB L100.2500 0-1 % Normal BASO% 0.6 LAB L100.2550 0.0-0.9 % Normal IM GRAN % 0.200 Result Comment: IG% - Immature Granulocytes (promyelocytes, myelocytes and metamyelocytes) > 1% indicates that a LEFT SHIFT is Present. LAB L100.2620 2.0-7.7 X10 3/uL Normal Absolute Neut 4.2 LAB L100.2720 0.83-4.51 X10 3/ul Normal Absolute Lymph 1.54 Performed By: #### L100.0100 #### [facility] [place] [place], [address] BASIC METABOLIC Collected: 07/14/2017 Status: F Source: NATO PROFILE (BMP) 1:45 PM [facility] REPOSITORY TYPE CODE TESTS RESULT OUT OF RANGE REFERENCE UNITS LAB L501.0100 74-106 mg/dL Normal GLU 80 Result Comment: Please note revised GLUCOSE reference range effective 2017. LAB L501.1000 7-18 mg/dL Normal BUN 11 LAB L501.1100 0.55-1.02 mg/dL Normal CREAT,SERUM 0.65 Result Comment: The validity of the calculated GFR AND GFRAA in patients over 70 years has not been determined. Clinical correlation is essential. LAB L501.1110 >60 mL/min Normal EST GFR 104 Result Comment: Non- GFR Calc LAB L501.1115 >60 mL/min Normal EST GFR - AA 125 Result Comment: GFR Calc LAB L501.1255 ml/min Normal Estimated CRCL 111.82 LAB L501.1300 10-20 RATIO BUN/CRE Normal 16.9 LAB L501.2200 8.5-10 mg/dL .1 CA Normal 9.0 LAB L501.5300 136-14 mmol/L 5 NA Normal 140 LAB L501.5600 3.5-5. mmol/L 1 K Normal 4.0 LAB L501.5900 98-107 mmol/L High CL 109 LAB L501.6100 21.0-3 mmol/L 2.0 CO2 Normal 23.0 LAB L501.6200 5-15 GAP Normal 8 Performed By: #### L500.2500 #### [facility] [address] [place], [address] Observed: 07/14/2017 Status: F Source: NATO MRSA/SAID SCREEN 1:45 PM [facility] [place] MRSA/SAID SCRN S. AUREUS S. aureus Negative MRSA MRSA Negative Performed By: #### M100.651 #### [facility] [facility] [address] [place], [place], [address] TRANSVAGINAL Observed: 07/10/2017 Status: F Source: NATO NON- 6:47 PM [facility] [place] Imaging Services [address] [place] [address] Transvaginal Non- MR#: [id number] Acct: [id number] Name: MANDEEP MCRAE Rep #: [id number] : 1970 F 46 From: Harry Camejo MD PCP: Kendrick Downs MD Status: REG CLI Study: Transvaginal Non- Date of Exam: 07/10/17 Exam# [id number] Ordering Dr: Ayala Parekr CLERK GENERAL-C ADDENDUM by Aidan Wheeler MD on 07/11/17 at 1512 US/Transvaginal Non- 07/11/17 151 Date cc: KD Parker; Kendrick Downs MD * Signed ADDENDUM by Aidan Wheeler MD on 07/11/17 at 1512 ADDENDUM This is an addendum report. An IUD is seen within the endometrium. Electronically Signed: Aidan Wheeler MD at 15:12 EST Tel [phone], Service support , 07/11/172 Date cc: KD Parker; Kendrick Downs MD * Signed STUDY: ULTRASOUND OF THE FEMALE PELVIS - COMPLETE REASON FOR EXAM: Female, 46 years old. Evaluate IUD. Spotting. LMP: Unknown. TECHNIQUE: Transvaginal TECHNICAL QUALITY: Adequate. COMPARISON: None. FINDINGS: The uterus is anteverted and is in a midline position. The uterus measures 9 x 7.7 x 5 cm. There is minimal fluid within the endocervical canal. The endometrium measures 4 mm in thickness, and is hyperechoic. There is a small hypoechoic area in right side of the uterus measuring about 8 mm which could represent small uterine fibroid. There is another similar area anteriorly measuring about 1 cm. There is no demonstrated myometrial mass. I.U.D. - The patient does not have an I.U.D. The right ovary is visualized. The right ovary measures 2.8 x 1.7 x 1.6 cm cm. There is a follicle in the right ovary measuring about 8 mm. There is no visualized right adnexal mass or complex lesion. There is normal arterial and normal venous vascularity. The left ovary is visualized. The left ovary measures 3.9 x 2.8 x 1.7 cm cm. There is a 2 cm left ovarian cyst. There is no visualized left adnexal mass or complex lesion. There is normal arterial and normal venous vascularity. There is no fluid in the cul-de-sac. US/Transvaginal Non- IMPRESSION: No demonstrated IUD. Small hypoechoic areas in the uterus as described above which may represent small uterine fibroids. 2 cm left ovarian cyst. Minimal fluid within the endocervical canal. Electronically Signed: Harry Camejo MD at 23:14 EST Tel , Service support , CC: KD Parker; Kendrick Downs MD Assembler For Puller Over Hand: Signed LABORER WHARF OFFICE VISIT Observed: 07/10/2017 Status: F Source: NATO REPORT 3:16 PM [facility] 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 Is patient in pain?: Yes Allergies No Known Allergies Allergy (Verified 07/10/17 14:54) Medications levonorgestrel 20 mcg/24 hr (5 years) intrauterine device 1 insert INTRAUTERINE ONCE 06/27/17 [History Confirmed 07/10/17] lisinopril 5 mg tablet 5 mg PO QDAY #90 tab 06/27/17 [Rx Confirmed 07/10/17] Is last menstrual period known: No Post menopausal: No Patient : No : No [facility] Medical History Chronic back pain (Chronic) Frequent headaches (Acute) Arthritis (Chronic) Seasonal allergies (Chronic) Hypertension (Chronic) Family History Father Cancer lyphoma Hyperlipemia Hypertension Mother Hypertension Arthritis Grandfather Colon cancer Grandfather Heart disease Social History Smoking Status: Never smoker alcohol intake: current alcohol intake frequency: a few times a week Alcohol type: wine, beer details: social substance use type: does not use caffeine: Yes what type of physical activity do you participate in: none seatbelt use: always do you feel safe at home: Yes additional social history: Leigh- Daily Record Patient works at [employer] HPI IUD AND HAVING SPOTTING FOR MONTHS: Details: MANDEEP MCRAE is a 46 year old who presents for had mirena IUD placed in November 2016 at [facility] and has irregular spotting and bleeding since then with some lower back pain. Is having bilateral hip replacement in 2 weeks and pain may be related to that. Had seen this provider at [facility] in September 2016 for heavy menses and then IUD placed by another provider. Denies STD concerns Pregancy History 1 Elective abortions Hx Para 1 Spontaneous abortions Past Pregnancies Del. DatName GA/WeeksOutcome Route [facility] Rebecca Freire LgAnesthesDel LocaProviderFOB e ht en ia tn Unknown 2002 Dev live birNSVD Male on - l term Exam General: bladder normal to palpation External Female Exam: normal external appearance, normal appearance of the urethra Urethra: normal appearance of the urethra Speculum Exam - Vagina: normal appearance of the vagina, normal vaginal discharge, nontender, no lesions Speculum Exam - Cervix: normal appearance of the cervix, other (smooth, nonfriable; IUD strings noted at os) Bimanual Exam- Vagina AND Uterus: bladder normal to palpation, normal bimanual exam, uterine size normal, uterine shape normal, uterine mobility normal, uterus non-tender Bimanual Exam- Adnexa, other: normal adnexae, no adnexal masses, adnexae non-tender Assessment AND Plan Problems 1. IUD check up Z30.431 2. Pelvic pain R10.2 3. Irregular menses N92.6 Plan Proceed with US to confirm IUD placement. If properly placed, will not remove until after surgery because although bleeding is irregular it is much mud boss then prior to IUD. If not properly placed, will replace, hopefully prior to hip surgery. Orders Orders: Coding Level of Care Code Off vis,est,level 3 Diagnoses IUD check up Z30.431 Pelvic pain R10.2 Irregular menses N92.6 07/10/17 1516 <Electronically signed by Ayala REYES> Date Ayala REYES Cosigner Signature: Date (if applicable) CC: INTERNAL MEDICINE Observed: 06/27/2017 Status: F Source: NATO OFFICE VISIT 4:13 PM [facility] [address] [address] OFFICE VISIT Date of Service: 06/27/17 MR#: [id number] Acct: [id number] Name: MANDEEP MCRAE Rep #: [id number] : 1970 Provider: Kendrick Downs MD Age/Sex: 46/F Location: [facility] Status: Signed Intake Vital Signs06/27/17 Height 5 ft 8 in 06/27/17 Weight: 181 lb 06/27/17 Body Mass Index (BMI) 27.5 06/27/17 Blood Pressure 150/94 06/27/17 Blood Pressure Location Lt brachial Intake Visit Reasons: EST CARE - SURGERY CLEARANCE Chief Complaint: surgery clearance Is patient in pain?: No Allergies No Known Allergies Allergy (Verified 05/08/17 14:06) Medications levonorgestrel 20 mcg/24 hr (5 years) intrauterine device 1 insert INTRAUTERINE ONCE 06/27/17 [History Confirmed 06/27/17] lisinopril 5 mg tablet 5 mg PO QDAY #90 tab 06/27/17 [Rx Confirmed 06/27/17] PFSH Medical History Chronic back pain (Chronic) Frequent headaches (Acute) Arthritis (Chronic) Seasonal allergies (Chronic) Hypertension (Chronic) Family History Father Cancer lyphoma Hyperlipemia Hypertension Mother Hypertension Arthritis Grandfather Colon cancer Grandfather Heart disease Social History Smoking Status: Never smoker alcohol intake: current alcohol intake frequency: a few times a week Alcohol type: wine, beer substance use type: does not use what type of physical activity do you participate in: none HPI EST CARE - SURGERY CLEARANCE: Chief Complaint: surgery clearance Details: MANDEEP MCRAE, is a 46yo F who presents to the office today to establish care and for pre surgical evaluation/assessment. She has no acute complaints at this time. She is scheduled to have bilateral hip replacement on 25 July due to congenital hip dysplasia and worsening hip pain. She has a history of hypertension dating back to 2011. Recently started on lisinopril about 8 months ago. Blood pressure in office today is 130/80 mmHg. Initially very physically active, she engaged in a lot of running and cardio activity however due to worsening hip pain, she has limited her daily exercise. She is still active around the house and is able to carry out her daily activities without limitation. She denies shortness of breath at rest or on exertion. She also denies chest pain. She had a stress test done in 2011 due to chest pain. Chest pain has resolved and stress test was normal. She has no known history of cardiac dxs. There is also no significant family history of heart disease. ROS Const Constitutional: No weight change, body ache, chills, fatigue, sleep problems, fever(s), change in appetite, snoring, weakness, frequent falls, headache(s) or excessive sweating Eyes Eyes: No change in vision, eye pain, light sensitivity or blurry vision ENT ENT: No headache(s), abnormal hearing, ear pain, tinnitus, nasal congestion, sore throat or neck pain Resp Respiratory: No snoring, cough, shortness of breath or wheezing Cardio Cardiology: No excessive sweating, chest pain at rest, chest pain with exertion, shortness of breath, dyspnea on exertion, palpitations, orthopnea or lightheadedness Gastro GI: No abdominal pain, change in bowel habits, constipation, diarrhea, vomiting, nausea/dyspepsia or cramping Musc Musculoskeletal: Positive for joint pain and back pain; no neck pain, abnormal walking, limited range of motion, numbness or tingling Skin Skin: No redness, dry skin, itching, lesions, wounds or rash Neuro Neurology: No weakness, frequent falls, headache(s), abnormal hearing, abnormal walking, numbness, tingling, abnormal speech, dizziness or memory loss Psych Psychiatric: No change in appetite, No memory loss, No anxiety, No depression, No Thoughts of harming yourself/Others Endo Endocrine: No fatigue, excessive sweating, cold intolerance, increased thirst/drinking, heat intolerance, flushing or increased hunger Aller/Imm Allergy/Immunologic: No wheezing, itchy eyes, hives or seasonal allergy symptoms Prabhu/Lymp Hematologic/Lymphatic: No easy bleeding, easy bruising or enlarged lymph nodes Exam Const General: cooperative, no acute distress, well developed Orientation: alert, awake, oriented x3 [facility] Head: atraumatic, normocephalic, normal to inspection Ears: hearing grossly normal bilaterally Resp Effort AND Inspection: normal respiratory effort, able to speak in complete sentences Auscultation: Bilateral: Clear to Auscultation Cardio Rate: regular rate Rhythm: regular rhythm Heart Sounds: S1 normal, S2 normal GI Palpation: soft, no hepatosplenomegaly Neuro General: alert, awake, oriented x3, CN's II-XI intact bilaterally Extrem General: no clubbing, cyanosis or edema Psych Appearance: grossly normal Mental Status: mental status grossly normal Affect: normal affect Assessment AND Plan 1. Preoperative clearance Z01.818 Plan Patient is seen for preoperative surgical risk assessment. She is scheduled to have bilateral hip replacement surgery due to worsening hip pain from congenital hip dysplasia. Surgery scheduled for 25 of July. She has a past medical history of hypertension and was started on lisinopril about 8 months ago. She has had no EKG within the last 6 months however, she is scheduled to have preadmission testing/evaluation on the 14 July. She denies any significant alcohol use at the most, has 3 drinks a week and has had no withdrawals. She denies tobacco or illegal substance abuse. She has a METS of >4. She currently is a class I RCRI (0.4%) and is classified a low risk for major perioperative cardiac event. 2. Hypertension I10 Plan Initial blood pressure elevated at 150/94mmHg. Repeat blood pressure (manually ) : 130/80mmHg. She is currently on Lisinopril 5mg daily. Advised to keep a Bp Log. Follow up in 3 months with log. This note was generated with Weeve dictation software. It may contain incorrect words, spelling, and punctuation that were not noted in checking the note before signing. Plan Detail Other Medications New: Follow Up 3 Months Coding Level of Care Code Off vis,new,level 3 Diagnoses Preoperative clearance Z01.818 Hypertension I10 06/27/17 1613 <Electronically signed by Kendrick Downs MD> Date Kendrick Downs MD Cosigner Signature: Date (if applicable) CC: ALLERGIES ALLERGIES DATE TYPE / CODE NAME / CODE REACTION SEVERITY SOURCE 05/31/2018 Drug No Known Unknown [place] [facility] Allergy/4160 Allergies/F00 [facility] 10738(SNOMED 8751086(RXNOR Repository CT) M) ENCOUNTERS ENCOUNTERS ADMIT/DISCHARGE ACCOUNT ADMITTING ENCOUNTER LOCATION SOURCE NUMBER CLASS 05/31/2018 [id number] Ambulatory [place] 0 [facility] ing:LABSPEC Repository 05/31/2018/ [id number] Ambulatory BMSBuilding:B [place] 9 7 [facility] Repository 05/16/2018 [id number] Ambulatory [place] 0 [facility] ing:OPBI Repository 04/22/2018/ [id number] Ambulatory BMSBuilding:B [place] [address] Repository 02/08/2018/ [id number] Ambulatory BMSBuilding:B [place] 8 3 [facility] [place] 10/30/2017/ [id number] Ambulatory BMSBuilding:B [place] 8 2 [facility] 09/19/2017/ [id number] Ambulatory BMSBuilding:B [place] 8 [place] [facility] [place] 07/25/2017/ [id number] Marquita, Inpatient [place] 8 6 Crist[place]er Encounter [facility] ing:JL0Fftl: Repository [id number]: 1 07/14/2017 [id number] Ambulatory BMSBuilding:W [place] 0 [facility] Repository 07/10/2017 [id number] Ambulatory [place] 3 [facility] ing:US Repository 07/10/2017/ [id number] Ambulatory BMSBuilding:B [place] 8 4 [facility] Repository 06/27/2017/ [id number] Ambulatory BMSBuilding:B [place] 8 6 [facility] PAYERS PAYERS ENCOUNTER GUARANTOR PAYER SUBSCRIBER SOURCE 05/31/2018 LEIGH [id number] Primary MANDEEP A [place] Insurance:ANTHEMPolic STARCHERDOB: [facility] karen Benedict Number: [id number] Hospital [address]Gck: (208) [id number] Repository [phone] () Date:6037-50-74HP [address], [place] [address]GB: 05/31/2018 Secondary NOT GIVENUNK [place] Insurance:SELF PAY [facility] Number: Effective Repository Date:2018-05-31 05/31/2018 LEIGH [id number] Primary MANDEEP A [place] Insurance:ANTHEMPolic [place] Number: [id number] Hospital [address]Bqz: [phone]) [id number] Repository [phone] () Date:2472-04-91YG [address] [place] [address]DW: 05/31/2018 Secondary NOT GIVENUNK [place] Insurance:SELF PAY [facility] Number: Effective Repository Date:2018-05-31 05/16/2018 LEIGH [id number] Primary MANDEEP A [place] Insurance:ANTHEMPolic [place]DOB[place] Number: [id number] Hospital [address]Ekd: [phone]) [id number] Repository [phone] () Date:4961-29-35FF [address] [place] [address]LC: 05/16/2018 Secondary NOT GIVENUNK [place] Insurance:SELF PAY [facility] Number: Effective Repository Date:2018-03-29 04/22/2018 Leigh [id number] Primary MANDEEP [place] Insurance:ANTHEMPolic [place]DOB: [place] Number: [id number] Hospital [address]Whx: [phone]) [id number] Repository [phone] () Date:0134-82-22MJ [address] [place] [address]EM: 04/22/2018 Secondary NOT GIVENUNK [place] Insurance:SELF PAY [facility] Number: Effective Repository Date:2018-04-22 02/08/2018 Leigh [id number] Primary MANDEEP [place] Insurance:ANTHEMPolic [place]DOB: [place] Number: [id number] Hospital [address]Gfb: ([phone]) [id number] Repository [phone] () Date:9452-42-00AI [address], [place] [address]RB: 02/08/2018 Secondary NOT GIVENUNK [place] Insurance:SELF PAY [facility] Number: Effective Repository Date:2018-02-08 10/30/2017 Leigh [id number] Primary MANDEEP [place] Insurance:ANTHEMPolic STARCHERDOB: [facility] [place] Number: [id number] Hospital [address]Mom: 330 [id number] Repository [phone] () Date:8585-28-06SN [address], [place] [address]TI: 10/30/2017 Secondary NOT GIVENUNK [place] Insurance:SELF PAY [facility] Number: Effective Repository Date:2017-11-09 09/19/2017 Leigh [id number] Primary MANDEEP [place] Insurance:ANTHEMPolic STARCHERDOB: [facility]: [id number] Hospital [address]Ign: 330 [id number] Repository [phone] () Date:2961-90-64KM [address], [place] [address]LN: 09/19/2017 Secondary NOT GIVENUNK [place] Insurance:SELF PAY [facility] Number: Effective Repository Date:2017-09-19 07/25/2017 Leigh [id number] Primary MANDEEP [place] Insurance:ANTHEMPolic STARCHERDOB: [facility] [place] Number: [id number] [address]Jfw: [id number] Repository Date:5276-99-12[address] ) [address] [address]KH: 07/25/2017 Secondary NOT GIVENUNK [place] Insurance:SELF PAY [facility] Number: Effective Repository Date:2017-06-20 07/14/2017 Leigh [id number] Primary MANDEEP [place] Insurance:ANTHEMPolic STARCHERDOB: [facility] [place] Number: [id number] [place] [address]Sic: [id number] Repository Date:2815-09-32MK [address] () [address]W, [place] [address]TO: 07/14/2017 Secondary NOT GIVENUNK [place] Insurance:SELF PAY [facility] Number: Effective Repository Date:2017-07-14 07/10/2017 Leigh [id number] Primary MANDEEP [place] Insurance:ANTHEMPolic STARCHERDOB: [facility] [place] Number: [id number] [place] [address]Juq: [id number] Repository Date:3094-01-93EB [address] () [address], [place] [address]LZ: 07/10/2017 Secondary NOT GIVENUNK [place] Insurance:SELF PAY [facility] Number: Effective Repository Date:2017-07-10 07/10/2017 Leigh [id number] Primary MANDEEP [place] Insurance:ANTHEMPolic STARCHERDOB: [facility], [place] Number: [id number] [address]Iun: [id number] Repository Date:2260-93-44AS [address] () [address]HT, [place] [address]ZG: 07/10/2017 Secondary NOT GIVENUNK [place] Insurance:SELF PAY [facility] Number: Effective Repository Date:2017-07-10 06/27/2017 Leigh [id number] Primary NOT GIVENUNK [place] Insurance:SELF PAY [facility] [address]Uef: Number: Effective Repository Date:2017-06-26 ()
== END ==
PROVIDERS: Family Provider Internal Medicine; PCP Internal Medicine; Referring Provider Obstetrics & Gynecology; Visit Provider Obstetrics & Gynecology
DX: Z12.31 Encounter for screening mammogram for malignant neoplasm of breast (principal)
CPT/HCPCS: 77063; 77067

== ENCOUNTER → 2018-05-31 17:18 | Outpatient (CLI) | payer BC, SELFPAY ==
[2018-05-31 09:07] VITALS: BMI 30.8
[2018-06-05 13:57] LABS: HPV APTIMA, High Risk Negative (Negative)
== END ==
PROVIDERS: Family Provider Internal Medicine; PCP Internal Medicine; Referring Provider Nurse Practitioner Women's Health; Visit Provider Nurse Practitioner Women's Health
DX: Z12.4 Encounter for screening for malignant neoplasm of cervix (principal)
CPT/HCPCS: 87624; 88175; G0145

== ENCOUNTER → 2019-03-18 08:53 | Outpatient (CLI) | payer BC, SELFPAY ==
[2019-02-22 09:11] VITALS: BMI 28.7
--- NOTE | 2019-03-18 08:57 | EKG12_ITS ---
Test Reason : HTN Blood Pressure : / mmHG Vent. Rate : 056 BPM Atrial Rate : 056 BPM P-R Int : 182 ms QRS Dur : 088 ms QT Int : 426 ms P-R-T Axes : 054 044 029 degrees QTc Int : 411 ms Sinus bradycardia with sinus arrhythmia Nonspecific T wave abnormality Abnormal ECG Confirmed by TAO LANCASTER, JAKY ([id number]), desk editor JAN ROWLAND ([id number]) on 03/22/2019 11:06:50 AM Referred By: Kendrick Downs Confirmed By:JAKY BURGER MD
[2019-03-18 11:12] LABS: Absolute Lymphocyte Count 1.25 X10^3/uL (0.83-4.51); Absolute Neutrophil Count 3.3 X10^3/uL (2.0-7.7); Basophil# 0.05 X10^3/uL; Eosinophil# 0.17 X10^3/uL; Eosinophils% 3.3 % (0-5); Hematocrit 41.2 % (37-47); Hemoglobin 13.4 g/dL (12.0-15.0); Lymphocyte # 1.25 X10^3/ul (4.0); Mean Corp Hgb Conc 32.5 g/dL (32-36); Mean Corpuscular Hgb 30.7 pg (27.0-32.0); Mean Corpuscular Volume 94.5 fL (81-99); Monocyte% 7.7 % (0-10); NRBC Flagged by Analyzer 0 % (0-5); Neutrophil # 3.32 X10^3/uL (2.7-7.7); Neutrophil % 63.6 % (47-70); Platelet Count 212 K/mm3 (150-450); RBC Distribution Width CV 12.2 % (11.6-14.6); RBC Distribution Width SD 42.5 fl (35.1-43.9); Red Blood Count 4.36 M/mm3 (4.2-5.4); White Blood Count 5.2 K/mm3 (4.4-11.0)
[2019-03-18 11:45] LABS: ALB/GLOB Ratio 1.3 RATIO (0.9-2.4); AST(SGOT) 12 U/L (15-37); Alanine Aminotransfer ALT/SGPT 16 U/L (13-56); Albumin, Serum 3.7 g/dL (3.2-5.0); Alkaline Phosphatase 48 U/L (45-117); Anion Gap 4 (5-15); BUN 11 mg/dL (7-18); BUN/Creat Ratio 16.1 RATIO (10-20); Calcium,Total 8.9 mg/dL (8.5-10.1); Chloride 108 mmol/L (98-107); Cholesterol 165 mg/dL (200); Creatinine, Serum 0.68 mg/dL (0.55-1.02); EST Glomerular Filtration Rate 97 mL/min (>60); Est Glom Filt Rate - Afr Amer 118 mL/min (>60); Globulin 2.9 g/dL (2.2-4.2); Glucose 91 mg/dL (74-106); High Density Lipoprotein 67 mg/dL; Potassium 4.1 mmol/L (3.5-5.1); Protein, Total 6.6 g/dL (6.4-8.2); Sodium Level 140 mmol/L (136-145); Triglycerides 66 mg/dL; Very Low Density Lipoprotein 13 mg/dL (5-40)
== END ==
PROVIDERS: Family Provider Internal Medicine; PCP Internal Medicine; Referring Provider Internal Medicine; Visit Provider Internal Medicine
DX: I10 Essential (primary) hypertension (principal)
CPT/HCPCS: 36415; 80053; 80061; 85025; 93005

== ENCOUNTER → 2019-04-04 06:32 | Outpatient (CLI) | payer BC, SELFPAY ==
[2019-02-22 09:11] VITALS: BMI 28.7
[2019-03-28 17:47] VITALS: BMI 28.7
--- NOTE | 2019-04-09 17:07 | STRESSREP_ITS ---
Stress Test Report Date: 04/04/2019 Procedure: Exercise tolerance test/imaging study Indications: [Abnormal EKG] Consent: Per the patient Procedure: The patient exercised on a Roberto protocol for 8 minutes achieving a peak heart rate of 169 bpm (98 % predicted maximal heart rate) with a peak blood pressure 198/100 mmHg and a peak MET capacity of 10.1 METs. The baseline ECG demonstrated normal sinus rhythm, poor R wave progression in the anterior leads. The peak exercise ECG demonstrated no significant ST-T changes. EKG during recovery revealed no significant ischemic changes [There were no cardiac dysrhythmias pretest, during exercise, or recovery]. The functional capacity was considered normal for age. There was [no complaint of chest discomfort during exercise or recovery]. The examination was discontinued secondary to shortness of breath. Impression: 1. Technically adequate (percent predicted maximal heart rate greater than 85%) exercise tolerance test 2. Stress test is negative for exercise-induced EKG changes of ischemia 3. The test test negative for exercise-induced chest pain 4. Functional capacity is normal for age 5. Nuclear images pending Myocardial perfusion imaging study: Technique: The patient was injected with 15 mCi of technetium 99m Cardiolite and subsequently rest SPECT Cardiolite nuclear imaging was obtained in the horizontal long, vertical long, and short axis views. The patient exercised on a Roberto protocol. Please see above for details. The patient was injected with 45 mCi of technetium 99m Cardiolite and subsequently stress SPECT Cardiolite nuclear imaging was obtained in the horizontal long, vertical long, and short axis views. A gated Cardiolite study at peak stress was obtained. Interpretation: Rest and stress SPECT Cardiolite nuclear imaging status post realignment, normalization, and attenuation correction, demonstrates normal myocardial radioisotope uptake. The gated Cardiolite study demonstrates no significant regional wall motion abnormalities. The reported LVEF is 58%. Impression: 1. There is no evidence of significant ischemia or infarction. 2. The gated Cardiolite study reports an LVEF of 58 %. This note was generated with MailTimeation software. It may contain incorrect words, spelling, and punctuation that were not noted in checking the note before signing.
== END ==
PROVIDERS: Family Provider Internal Medicine; PCP Internal Medicine; Referring Provider Internal Medicine; Visit Provider Internal Medicine
DX: R94.31 Abnormal electrocardiogram [ECG] [EKG] (principal)
CPT/HCPCS: 78452; 93017; A9500; A4216

== ENCOUNTER → 2019-06-25 07:43 | Outpatient (CLI) | payer BC, SELFPAY ==
[2019-04-29 08:52] VITALS: BMI 28.5
--- NOTE | 2019-06-25 07:43 | BI_ITS ---
MAMMOGRAPHY - BILATERAL SCREENING REASON FOR EXAM: Female, 48 years old. Routine annual screening examination. PERTINENT HISTORY: Non-contributory. TECHNIQUE: Digital bilateral breast iwona (3D mammographic acquisition) in the CC and MLO projections. 2-D mediolateral oblique (MLO) and craniocaudad (CC) views of both breasts were obtained. CAD: Full Field Digital Mammography with Computer Added Detection was performed. COMPARISON: Comparison is made with prior study dated May 15, 2018. FINDINGS: Breast Composition: The breasts are heterogeneously dense, which may obscure small masses. There are no dominant masses or suspicious calcifications. Stable benign-appearing right axillary lymph nodes. No other significant abnormalities are identified. There has been no significant change since the prior study. BI/SCREEN MAMM (CAD) W/IWONA BILAT IMPRESSION: Stable bilateral screening mammogram. Yearly follow-up mammogram recommended. (A) ASSESSMENT CATEGORY: BIRADS Category 2: Benign. A letter regarding these results will be sent to the patient by the facility within 30 days. Approximately 10% of breast cancers are not detected by mammography. A normal mammogram should not delay biopsy of a clinically suspicious abnormality. [id number] Electronically Signed: Aidan Wheeler, at 9:02 EST , Service support ,
== END ==
PROVIDERS: PCP Internal Medicine; Referring Provider Nurse Practitioner Women's Health; Visit Provider Nurse Practitioner Women's Health
DX: Z12.31 Encounter for screening mammogram for malignant neoplasm of breast (principal)
CPT/HCPCS: 77063; 77067

== ENCOUNTER → 2019-07-19 08:05 | Outpatient (CLI) | payer BC, SELFPAY ==
[2019-07-01 13:19] VITALS: BMI 28.5
[2019-07-19 09:06] LABS: Anion Gap 6 (5-15); BUN 16 mg/dL (7-18); Calcium,Total 8.8 mg/dL (8.5-10.1); Chloride 107 mmol/L (98-107); Creatinine, Serum 0.94 mg/dL (0.55-1.02); EST Glomerular Filtration Rate 67 mL/min (>60); Est Glom Filt Rate - Afr Amer 81 mL/min (>60); Glucose 85 mg/dL (74-106); Potassium 3.9 mmol/L (3.5-5.1); Sodium Level 141 mmol/L (136-145)
== END ==
PROVIDERS: PCP Internal Medicine; Referring Provider Internal Medicine; Visit Provider Internal Medicine
DX: I10 Essential (primary) hypertension (principal)
CPT/HCPCS: 36415; 80048

== ENCOUNTER → 2019-08-06 | Outpatient (CLI) | payer BC, SELFPAY ==
[2019-08-06 06:33] VITALS: BMI 28.5
[2019-08-06 11:03] LABS: Mucous, Urine 0 SEEN /hpf (<or=2+)
[2019-08-06 11:14] LABS: Color, Urine Yellow (Yellow); Glucose, Dipstick Normal (Normal); Ketone-Dipstick Negative (Negative); Leukocyte Esterase-Dipstick 500 /ul (Negative); Nitrite-Dipstick Positive (Negative); Occult Blood-Urine 250 /ul (Negative); Protein-Dipstick 100 mg/dl (Negative); Urine Bilirubin Dipstick Negative (Negative); Urine Clarity Cloudy (Clear); Urine Urobilinogen Normal (Normal)
[2019-08-06 11:40] LABS: Bacteria 2+ /hpf (None Seen); Red Blood Cells-Urine 5-10 SEEN /hpf (0-5); Squamous Epithelial Cells - UA 5-10 SEEN /hpf (5-10); White Blood Cells 5-10 SEEN /hpf (0-5)
== END | disposition home or self-care (01) ==
LOC: LABSPEC 10:23
PROVIDERS: PCP Internal Medicine; Referring Provider Physician Assistant Surgical; Visit Provider Physician Assistant Surgical
DX: N30.01 Acute cystitis with hematuria (principal)
CPT/HCPCS: 81001; 87086; 87088; 87186

== ENCOUNTER → 2020-04-29 08:33 | Outpatient (CLI) | payer BC, SELFPAY ==
[2020-04-29 08:21] VITALS: BMI 29.9
[2020-04-29 12:39] LABS: Absolute Lymphocyte Count 1.37 X10^3/uL (0.83-4.51); Absolute Neutrophil Count 3.2 X10^3/uL (2.0-7.7); Basophil# 0.06 X10^3/uL; Basophil% 1.1 % (0-1); Eosinophil# 0.23 X10^3/uL; Eosinophils% 4.4 % (0-5); Hematocrit 39.4 % (37-47); Hemoglobin 12.7 g/dL (12.0-15.0); Lymphocyte # 1.37 X10^3/ul (4.0); Mean Corp Hgb Conc 32.2 g/dL (32-36); Mean Corpuscular Hgb 30.5 pg (27.0-32.0); Mean Corpuscular Volume 94.7 fL (81-99); Mean Platelet Vol. 11.2 fl (6.2-12.0); Monocyte# 0.39 X10^3/uL; Monocyte% 7.4 % (0-10); NRBC Flagged by Analyzer 0 % (0-5); Neutrophil % 60.7 % (47-70); Platelet Count 252 K/mm3 (150-450); RBC Distribution Width SD 42.1 fl (35.1-43.9); Red Blood Count 4.16 M/mm3 (4.2-5.4); White Blood Count 5.3 K/mm3 (4.4-11.0)
[2020-04-29 13:06] LABS: ALB/GLOB Ratio 1.1 RATIO (0.9-2.4); AST(SGOT) 17 U/L (15-37); Alanine Aminotransfer ALT/SGPT 22 U/L (13-56); Albumin, Serum 3.7 g/dL (3.2-5.0); Alkaline Phosphatase 52 U/L (45-117); Anion Gap 6 (5-15); BUN 14 mg/dL (7-18); BUN/Creat Ratio 16.3 RATIO (10-20); Calcium,Total 8.9 mg/dL (8.5-10.1); Chloride 105 mmol/L (98-107); Cholesterol 170 mg/dL (200); Creatinine, Serum 0.86 mg/dL (0.55-1.02); EST Glomerular Filtration Rate 74 mL/min (>60); Est Glom Filt Rate - Afr Amer 90 mL/min (>60); Globulin 3.4 g/dL (2.2-4.2); Glucose 87 mg/dL (74-106); High Density Lipoprotein 62 mg/dL; Potassium 3.5 mmol/L (3.5-5.1); Protein, Total 7.1 g/dL (6.4-8.2); Sodium Level 137 mmol/L (136-145); Triglycerides 64 mg/dL; Very Low Density Lipoprotein 13 mg/dL (5-40)
== END ==
PROVIDERS: PCP Internal Medicine; Referring Provider Internal Medicine; Visit Provider Internal Medicine
DX: I10 Essential (primary) hypertension (principal)
CPT/HCPCS: 36415; 80053; 80061; 85025

== ENCOUNTER → 2020-07-01 07:31 | Outpatient (CLI) | payer BC, SELFPAY ==
[2019-10-30 08:45] VITALS: BMI 28.5
[2020-04-29 08:21] VITALS: BMI 29.9
--- NOTE | 2020-07-01 07:33 | BI_ITS ---
MAMMOGRAPHY - BILATERAL SCREENING REASON FOR EXAM: Female, 49 years old. Routine annual screening examination. PERTINENT HISTORY: Non-contributory. TECHNIQUE: Digital bilateral breast iwona (3D mammographic acquisition) in the CC and MLO projections. 2-D mediolateral oblique (MLO) and craniocaudad (CC) views of both breasts were obtained. CAD: Full Field Digital Mammography with Computer Added Detection was performed. COMPARISON: Comparison is made with prior study dated 06/25/2019 and 05/15/2018. FINDINGS: Breast Composition: The breasts are heterogeneously dense, which may obscure small masses. There are no dominant masses or suspicious calcifications. No other significant abnormalities are identified. There has been no significant change since the prior study. BI/SCRN MAMM (CAD)W/IWONA BILAT IMPRESSION: Stable bilateral screening mammogram. Yearly follow-up mammogram recommended. (A) ASSESSMENT CATEGORY: BIRADS Category 1: Negative. A letter regarding these results will be sent to the patient by the facility within 30 days. Approximately 10% of breast cancers are not detected by mammography. A normal mammogram should not delay biopsy of a clinically suspicious abnormality. [id number] Electronically Signed: Aidan Wheeler MD at 8:49 EST , Service support ,
== END ==
PROVIDERS: PCP Internal Medicine; Referring Provider Obstetrics & Gynecology; Visit Provider Obstetrics & Gynecology
DX: Z12.31 Encounter for screening mammogram for malignant neoplasm of breast (principal)
CPT/HCPCS: 77063; 77067

== ENCOUNTER → 2020-10-28 08:24 | Outpatient (CLI) | payer BC, SELFPAY ==
[2020-10-28 08:16] VITALS: BMI 28.5
[2020-10-28 12:34] LABS: Anion Gap 6 (5-15); BUN 17 mg/dL (7-18); BUN/Creat Ratio 17.5 RATIO (10-20); Calcium,Total 9.1 mg/dL (8.5-10.1); Chloride 107 mmol/L (98-107); Creatinine, Serum 0.97 mg/dL (0.55-1.02); EST Glomerular Filtration Rate 64 mL/min (>60); Est Glom Filt Rate - Afr Amer 78 mL/min (>60); Glucose 88 mg/dL (74-106); Potassium 4.1 mmol/L (3.5-5.1); Sodium Level 140 mmol/L (136-145)
== END ==
PROVIDERS: PCP Internal Medicine; Visit Provider Internal Medicine
DX: I10 Essential (primary) hypertension (principal)
CPT/HCPCS: 36415; 80048

== ENCOUNTER → 2021-05-03 08:27 | Outpatient (CLI) | payer BC, SELFPAY ==
[2021-05-03 12:24] LABS: Absolute Lymphocyte Count 1.21 X10^3/uL (0.83-4.51); Absolute Neutrophil Count 3.8 X10^3/uL (2.0-7.7); Basophil# 0.03 X10^3/uL; Basophil% 0.5 % (0-1); Eosinophil# 0.23 X10^3/uL; Hematocrit 40.1 % (37-47); Lymphocyte # 1.21 X10^3/ul (0.83-4.51); Lymphocyte % 21.3 % (19-41); Mean Corp Hgb Conc 32.4 g/dL (32-36); Mean Corpuscular Hgb 30.4 pg (27.0-32.0); Mean Corpuscular Volume 93.9 fL (81-99); Monocyte# 0.41 X10^3/uL; Monocyte% 7.2 % (0-10); NRBC Flagged by Analyzer 0 % (0-5); Neutrophil # 3.78 X10^3/uL (2.7-7.7); Neutrophil % 66.5 % (47-70); Platelet Count 266 K/mm3 (150-450); RBC Distribution Width CV 12.7 % (11.6-14.6); RBC Distribution Width SD 43.8 fl (35.1-43.9); Red Blood Count 4.27 M/mm3 (4.2-5.4); White Blood Count 5.7 K/mm3 (4.4-11.0)
[2021-05-03 12:35] LABS: AST(SGOT) 13 U/L (15-37); Alanine Aminotransfer ALT/SGPT 22 U/L (13-56); Albumin, Serum 3.6 g/dL (3.2-5.0); Alkaline Phosphatase 56 U/L (45-117); Anion Gap 10 (5-15); BUN 13 mg/dL (7-18); BUN/Creat Ratio 16.7 RATIO (10-20); Calcium,Total 8.8 mg/dL (8.5-10.1); Chloride 103 mmol/L (98-107); Cholesterol 204 mg/dL (200); Creatinine, Serum 0.78 mg/dL (0.55-1.02); EST Glomerular Filtration Rate 83 mL/min (>60); Est Glom Filt Rate - Afr Amer 100 mL/min (>60); Globulin 3.5 g/dL (2.2-4.2); Glucose 96 mg/dL (74-106); High Density Lipoprotein 70 mg/dL; Potassium 3.6 mmol/L (3.5-5.1); Protein, Total 7.1 g/dL (6.4-8.2); Sodium Level 141 mmol/L (136-145); Triglycerides 78 mg/dL; Very Low Density Lipoprotein 16 mg/dL (5-40)
== END ==
PROVIDERS: PCP Internal Medicine; Visit Provider Internal Medicine
DX: I10 Essential (primary) hypertension (principal)
CPT/HCPCS: 36415; 80053; 80061; 85025

== ENCOUNTER 2021-07-07 08:03 | Outpatient (CLI) | payer BC, SELFPAY | END 2021-07-07 23:59 | disposition home or self-care (01) | LOC: LABSPEC 07-08 08:04 | PROVIDERS: PCP Internal Medicine; Referring Provider Nurse Practitioner Women's Health; Visit Provider Nurse Practitioner Women's Health | DX: N76.0 Acute vaginitis (principal) | CPT/HCPCS: 87070; 87205 ==

== ENCOUNTER 2021-07-13 15:50 | Outpatient (CLI) | payer BC, SELFPAY ==
--- NOTE | 2021-07-13 15:51 | BI_ITS ---
MAMMOGRAPHY - BILATERAL SCREENING REASON FOR EXAM: Female, 50 years old. Routine annual screening examination. PERTINENT HISTORY: Non-contributory. TECHNIQUE: Digital bilateral breast iwona (3D mammographic acquisition) in the CC and MLO projections. 2-D mediolateral oblique (MLO) and craniocaudad (CC) views of both breasts were obtained. CAD: Full Field Digital Mammography with Computer Added Detection was performed. COMPARISON: Comparison is made with prior study dated 07/01/2020 and 06/25/2019. FINDINGS: Breast Composition: The breasts are heterogeneously dense, which may obscure small masses. There are no dominant masses or suspicious calcifications. No other significant abnormalities are identified. There has been no significant change since the prior study. BI/SCRN MAMM (CAD)W/IWONA BILAT IMPRESSION: Stable bilateral screening mammogram. Yearly follow-up mammogram recommended. (A) ASSESSMENT CATEGORY: BIRADS Category 1: Negative. A letter regarding these results will be sent to the patient by the facility within 30 days. Approximately 10% of breast cancers are not detected by mammography. A normal mammogram should not delay biopsy of a clinically suspicious abnormality. [id number] Electronically Signed: Aidan Wheeler MD at 8:21 EST ,
== END 2021-07-13 23:59 | disposition home or self-care (01) ==
LOC: OPBI 15:50
PROVIDERS: PCP Internal Medicine; Referring Provider Nurse Practitioner Women's Health; Visit Provider Nurse Practitioner Women's Health
DX: Z12.31 Encounter for screening mammogram for malignant neoplasm of breast (principal)
CPT/HCPCS: 77063; 77067

== ENCOUNTER → 2021-11-02 | Outpatient (CLI) | payer BC, SELFPAY ==
[2021-11-02 12:29] LABS: Anion Gap 4 (5-15); BUN 16 mg/dL (7-18); BUN/Creat Ratio 18.3 RATIO (10-20); Calcium,Total 8.8 mg/dL (8.5-10.1); Chloride 109 mmol/L (98-107); Creatinine, Serum 0.88 mg/dL (0.55-1.02); EST Glomerular Filtration Rate 72 mL/min (>60); Est Glom Filt Rate - Afr Amer 87 mL/min (>60); Glucose 102 mg/dL (74-106); Potassium 3.6 mmol/L (3.5-5.1); Sodium Level 142 mmol/L (136-145)
== END | disposition home or self-care (01) ==
LOC: BIMLAB 09:12
PROVIDERS: PCP Internal Medicine; Referring Provider Internal Medicine; Visit Provider Internal Medicine
DX: I10 Essential (primary) hypertension (principal)
CPT/HCPCS: 36415; 80048

== ENCOUNTER 2022-03-21 08:00 | Outpatient (RCR) | payer BC, SELFPAY ==
--- NOTE | 2022-02-03 14:51 | HP.PTEVAL ---
Patient's Visit Information MANDEEP MCRAE is a 51 year old F referred to Physical Therapy by PAZ Campa with a diagnosis of neck pain with radic, c-spine stenosis, DDD. Date of Evaluation: 02/03/22 Physical Therapist: SONJA Stephens - Visit Plan Frequency: 2x /Week Duration: 6 Weeks Plan: 2X/ week for 6 weeks if needed for centralization of symptoms using extension principle, postural exercises, scapular strength, R am strengthening, MT to the c-spine paraspinals and mid trap and levator region with HEP and US/Heat/ICE as needed. HEP: supine chin tucks and seated chin tucks and watching upright posture and avoid prolonged looking down - Subjective Pt 01-08-22 she woke up with a stiff neck and over the coming days it moved down her shoulder to R forearm...a little off and on finger stuff. She was on steroids and muscle relaxors. She got x-rays and she got some degeneration so PT was next. She always knows the pain is there and it changes in severity. Her jean-baptiste hurts less but the shoulder is bothering her. She sits at her desk all day. She plays golf tonight and she will be more miserable after that. She reports some weakness in her R arm. She notices no difference in extracorporeal circulation specialist strength. No BURT. She sleeps with a flat pillow and needs a new one. She had tried taking a pillow away and see if felt better but no relief. - Pain C-spine pain Pain Intensity (Out of 10): 4 Pain Intensity Range: 7 - Objective Posture: R handed: R hand extracorporeal circulation specialist strength: 50#. L hand extracorporeal circulation specialist strength: 65#. Bicep DTR 2+/3 B. C-spine AROM: flexion 100%, EXT 50%, SB B 75% and R rotation 75% and L Rotation 89%. R shoulder flex 11.9# and L shoulder flex 14.9#. R shoulder ABD 11# and L shoulder abd 13.6#. R ER 14# and L ER 18.6#. Supine chin tucks on a towel X 10... no pain in neck or arm. Palpation: Tender over the occiput area and along the paraspinals and on the R side at approx C2-C4. Also tender along the scalenes and mid tap on the R. Light distraction also decreased the sx almost immed in pts R arm and shoulder. Seated chin tucks 1 X 10.. no arm pain AFTER second set of X 10 chin tucks and a third set she had no arm pain. Also instructed pt in supine chin tucks as well with a towel roll. - Balance/Special Test Scores Oswestry Neck Score: 14 - Goals Goal 1:: I HEP Goal Time Frame: 4-6 Weeks Goal 2:: Be able to sit upright during her work day and adjust her work space so she is not looking down so much Goal Time Frame: 4-6 Weeks Goal 3:: Increase R arm strength (at time of the eval: R shoulder flex 11.9# and L shoulder flex 14.9#. R shoulder ABD 11# and L shoulder abd 13.6#. R ER 14# and L ER 18.6#) Goal Time Frame: 4-6 Weeks Goal 4:: Increase R extracorporeal circulation specialist strength (at time of the eval R hand extracorporeal circulation specialist strength: 50# and L hand extracorporeal circulation specialist strength: 65#) Goal Time Frame: 4-6 Weeks Goal 5:: Abolish R arm sx and neck pain Goal Time Frame: 4-6 Weeks - Rehabilitation Potential Rehabilitation Potential: Good - Anticipated Interventions Patient/Client Instruction: Educate patient on: Condition, Plan of Care For the Purpose of:: To decrease pain, To increase ROM, To improve nutrient delivery to tissue, To increase oxygenation perfusion, To improve muscle performance and motor function, To improve ability to perform ADL's, To increase tolerance to activity/condition/position, To improve performance and independence with ADL's, To decrease level of supervision to perform tasks, To improve ability of physical actions for home/community/work/leisure, To improve health of tissue, To decrease soft tissue restriction, To increase flexibility/ROM Therapeutic Exercise to Include: Strength training, Postural training, Flexibilty training, Neuromotor development, Passive ROM, Active ROM, Lena Exercises, Scapular Strength/Stabilization For the Purpose of:: To decrease pain, To increase ROM, To improve nutrient delivery to tissue, To improve muscle performance and motor function, To improve ability to perform ADL's, To increase tolerance to activity/condition/position, To improve performance and independence with ADL's, To decrease level of supervision to perform tasks, To improve ability of physical actions for home/community/work/leisure, To improve health of tissue, To decrease soft tissue restriction, To increase flexibility/ROM Manual Therapy Techniques to Include: Mobilization, Passive ROM, Soft tissue mobilization For the Purpose of:: To decrease pain, To increase ROM, To improve nutrient delivery to tissue, To improve muscle performance and motor function, To improve ability to perform ADL's, To increase tolerance to activity/condition/position, To improve performance and independence with ADL's, To decrease level of supervision to perform tasks, To improve ability of physical actions for home/community/work/leisure, To improve health of tissue, To decrease soft tissue restriction, To increase flexibility/ROM Cryotherapy (ice pack, ice massage): Yes Thermo therapy (hot pack): Yes Ultrasound (thermal/non thermal): Yes For the Purpose of:: To decrease pain, To increase ROM, To improve nutrient delivery to tissue Thank you for the opportunity to evaluate your patient. For Medicare and Medicare HMO plans, please review the plan of care and approve it. It will need to be FAXED BACK to us at [phone] for Medicare purposes. For Medicare only, by signing this I certify the plan of care. Please let me know if there are questions or concerns regarding this plan of care. Physician Signature: Date:
--- NOTE | 2022-03-21 09:31 | HP.PTDCSUM ---
It has been my pleasure to treat MANDEEP MCRAE referred by PAZ Campa, with the diagnosis of neck pain with radic, c-spine stenosis, DDD for a total of 9 visit(s). Discharge Date: 03/21/22 Please see the following information for a summary of their discharge status. Subjective: Pt reports that she has no pain but just occ tingling. The blue band is going fine at home. C-spine pain Pain Intensity (Out of 10): 0 % Improvement: 85 Objective/Function: R shoulder flex 12# and L shoulder flex 12.5#. R shoulder ABD 11.1# and L shoulder abd 13.6#. R ER 14.1# and L ER 18.6#). Increase R business intelligence consultant strength (at time of the eval R hand business intelligence consultant strength: 50# and L hand business intelligence consultant strength: 65#) Goal 1:: I HEP Goal Progress: Goal Met Goal 2:: Be able to sit upright during her work day and adjust her work space so she is not looking down so much Goal Progress: Goal Met Goal 3:: Increase R arm strength (at time of the eval: R shoulder flex 11.9# and L shoulder flex 14.9#. R shoulder ABD 11# and L shoulder abd 13.6#. R ER 14# and L ER 18.6#) Goal Progress: Goal Met Goal 4:: Increase R business intelligence consultant strength (at time of the eval R hand business intelligence consultant strength: 50# and L hand business intelligence consultant strength: 65#) Goal Progress: Goal Met Goal 5:: Abolish R arm sx and neck pain Goal Progress: Goal Met Plan: 2X/ week for 6 weeks if needed for centralization of symptoms using extension principle, postural exercises, scapular strength, R am strengthening, MT to the c-spine paraspinals and mid trap and levator region with HEP and US/Heat/ICE as needed. HEP: supine chin tucks and seated chin tucks and watching upright posture and avoid prolonged looking down Discharge Comments: DC PT to HEP If there are questions or concerns regarding this patient's physical therapy, please feel free to call me at [phone]. Thank you for the referral of this patient. Sincerely, Nery Alvarado, MPT Balance/Gait/Functional tests - Balance/Special Test Scores Oswestry Neck Score: 5
== END 2022-03-21 12:13 | disposition home or self-care (01) ==
LOC: PT 08:00
PROVIDERS: PCP Internal Medicine; Referring Provider Physician Assistant; Visit Provider Physician Assistant
DX: M54.2 Cervicalgia (principal); M48.02 Spinal stenosis, cervical region; M50.30 Other cervical disc degeneration, unspecified cervical region
CPT/HCPCS: 97110; 97140; 97161

== ENCOUNTER → 2022-05-13 | Outpatient (CLI) | payer BC, SELFPAY ==
[2022-05-13 12:31] LABS: Absolute Lymphocyte Count 1.37 X10^3/uL (0.83-4.51); Absolute Neutrophil Count 3.1 X10^3/uL (2.0-7.7); Basophil# 0.08 X10^3/uL; Basophil% 1.5 % (0-1); Eosinophil# 0.28 X10^3/uL; Eosinophils% 5.3 % (0-5); Hematocrit 35.4 % (37-47); Hemoglobin 11.7 g/dL (12.0-15.0); Lymphocyte # 1.37 X10^3/ul (0.83-4.51); Mean Corp Hgb Conc 33.1 g/dL (32-36); Mean Corpuscular Volume 90.8 fL (81-99); Mean Platelet Vol. 10.9 fl (6.2-12.0); Monocyte# 0.37 X10^3/uL; NRBC Flagged by Analyzer 0 % (0-5); Neutrophil # 3.14 X10^3/uL (2.7-7.7); Neutrophil % 59.6 % (47-70); Platelet Count 281 K/mm3 (150-450); RBC Distribution Width CV 12.9 % (11.6-14.6); RBC Distribution Width SD 42.4 fl (35.1-43.9); White Blood Count 5.3 K/mm3 (4.4-11.0)
[2022-05-13 12:38] LABS: AST(SGOT) 12 U/L (15-37); Alanine Aminotransfer ALT/SGPT 20 U/L (13-56); Albumin, Serum 3.5 g/dL (3.2-5.0); Alkaline Phosphatase 65 U/L (45-117); Anion Gap 5 (5-15); BUN 12 mg/dL (7-18); BUN/Creat Ratio 15.4 RATIO (10-20); Calcium,Total 8.7 mg/dL (8.5-10.1); Chloride 109 mmol/L (98-107); Cholesterol 187 mg/dL (200); Creatinine, Serum 0.78 mg/dL (0.55-1.02); EST Glomerular Filtration Rate 82 mL/min (>60); Est Glom Filt Rate - Afr Amer 100 mL/min (>60); Globulin 3.5 g/dL (2.2-4.2); Glucose 103 mg/dL (74-106); High Density Lipoprotein 64 mg/dL; Potassium 3.9 mmol/L (3.5-5.1); Sodium Level 140 mmol/L (136-145); Triglycerides 91 mg/dL; Very Low Density Lipoprotein 18 mg/dL (5-40)
== END | disposition home or self-care (01) ==
LOC: BIMLAB 10:19
PROVIDERS: PCP Internal Medicine; Referring Provider Internal Medicine; Visit Provider Internal Medicine
DX: I10 Essential (primary) hypertension (principal)
CPT/HCPCS: 36415; 80053; 80061; 85025

== ENCOUNTER → 2022-08-25 | Outpatient (CLI) | payer BC, SELFPAY ==
--- NOTE | 2022-08-25 14:38 | BI_ITS ---
MAMMOGRAPHY - BILATERAL SCREENING REASON FOR EXAM: Female, 51 years old. Routine annual screening examination. PERTINENT HISTORY: Non-contributory. TECHNIQUE: Digital bilateral breast iwona (3D mammographic acquisition) in the CC and MLO projections. 2-D mediolateral oblique (MLO) and craniocaudad (CC) views of both breasts were obtained. CAD: Full Field Digital Mammography with Computer Added Detection was performed. COMPARISON: Comparison is made with prior examination of July 01, 2020 and July 13, 2021. FINDINGS: Breast Composition: The breasts are heterogeneously dense, which may obscure small masses. There are no dominant masses or suspicious calcifications. Stable small benign-appearing bilateral axillary lymph nodes. No other significant abnormalities are identified. There has been no significant change since the prior study. BI/SCRN MAMM (CAD)W/IWONA BILAT IMPRESSION: Stable bilateral screening mammogram. Yearly follow-up mammogram recommended. (A) ASSESSMENT CATEGORY: BIRADS Category 2: Benign. A letter regarding these results will be sent to the patient by the facility within 30 days. Approximately 10% of breast cancers are not detected by mammography. A normal mammogram should not delay biopsy of a clinically suspicious abnormality. [id number] Electronically Signed: Aidan Wheeler MD at 15:32 EDT ,
== END | disposition home or self-care (01) ==
LOC: OPBI 14:37
PROVIDERS: PCP Internal Medicine; Visit Provider Nurse Practitioner Women's Health
DX: Z12.31 Encounter for screening mammogram for malignant neoplasm of breast (principal)
CPT/HCPCS: 77063; 77067

== ENCOUNTER → 2022-09-15 | Outpatient (CLI) | payer BC, SELFPAY ==
[2022-09-15 16:50] LABS: Absolute Lymphocyte Count 1.52 X10^3/uL (0.83-4.51); Absolute Neutrophil Count 3.7 X10^3/uL (2.0-7.7); Basophil# 0.06 X10^3/uL; Eosinophil# 0.27 X10^3/uL; Eosinophils% 4.5 % (0-5); Hematocrit 34.6 % (37-47); Hemoglobin 11.1 g/dL (12.0-15.0); Lymphocyte # 1.52 X10^3/ul (0.83-4.51); Lymphocyte % 25.1 % (19-41); Mean Corp Hgb Conc 32.1 g/dL (32-36); Mean Corpuscular Hgb 28.1 pg (27.0-32.0); Mean Corpuscular Volume 87.6 fL (81-99); Mean Platelet Vol. 10.9 fl (6.2-12.0); Monocyte% 8.3 % (0-10); NRBC Flagged by Analyzer 0 % (0-5); Neutrophil # 3.69 X10^3/uL (2.7-7.7); Neutrophil % 60.8 % (47-70); Platelet Count 338 K/mm3 (150-450); RBC Distribution Width CV 13.6 % (11.6-14.6); RBC Distribution Width SD 43.9 fl (35.1-43.9); Red Blood Count 3.95 M/mm3 (4.2-5.4); White Blood Count 6.1 K/mm3 (4.4-11.0)
[2022-09-15 17:16] LABS: Ferritin 6 ng/mL (8-252); Iron 33 ug/dL (50-170); Iron Binding Capacity,Total 438 ug/dL (250-450)
[2022-09-15 17:26] LABS: Vitamin B12 382 pg/mL (211-911); Vitamin D,25 Hydroxy 23.3 ng/mL
[2022-09-15 18:15] LABS: Thyroid Stim Hormone (TSH) 1.21 uIU/mL (0.358-3.74)
== END | disposition home or self-care (01) ==
LOC: BIMLAB 15:50
PROVIDERS: PCP Internal Medicine; Referring Provider Nurse Practitioner Family; Visit Provider Nurse Practitioner Family
DX: D64.9 Anemia, unspecified (principal); E56.9 Vitamin deficiency, unspecified
CPT/HCPCS: 36415; 82306; 82607; 82728; 83540; 83550; 84443; 85025

== ENCOUNTER → 2022-10-18 | Outpatient (CLI) | payer BC, SELFPAY ==
[2022-10-18 18:18] LABS: Mucous, Urine 0 SEEN /hpf (<or=2+)
[2022-10-18 18:30] LABS: Color, Urine Yellow (Yellow); Glucose, Dipstick Normal (Normal); Ketone-Dipstick Negative (Negative); Leukocyte Esterase-Dipstick 25 /ul (Negative); Nitrite-Dipstick Negative (Negative); Occult Blood-Urine 50 /ul (Negative); Protein-Dipstick 30 mg/dl (Negative); Urine Bilirubin Dipstick Negative (Negative); Urine Clarity Sl. Cloudy (Clear); Urine Urobilinogen Normal (Normal)
[2022-10-18 19:18] LABS: Bacteria RARE /hpf (None Seen); Red Blood Cells-Urine 5-10 SEEN /hpf (0-5); Squamous Epithelial Cells - UA 0-5 SEEN /hpf (5-10); White Blood Cells 5-10 SEEN /hpf (0-5)
[2022-10-18 19:19] LABS: Amorphous Sediment 1+ URATE
== END | disposition home or self-care (01) ==
PROVIDERS: PCP Internal Medicine; Visit Provider Physician Assistant Surgical
DX: R30.0 Dysuria (principal)
CPT/HCPCS: 81001; 87086; 87088; 87186

== ENCOUNTER → 2022-11-11 | Outpatient (CLI) | payer BC, SELFPAY ==
[2022-11-11 12:19] LABS: Anion Gap 9 (5-15); BUN 14 mg/dL (7-18); BUN/Creat Ratio 17.7 RATIO (10-20); Calcium,Total 8.7 mg/dL (8.5-10.1); Chloride 107 mmol/L (98-107); Creatinine, Serum 0.79 mg/dL (0.55-1.02); EST Glomerular Filtration Rate 81 mL/min (>60); Est Glom Filt Rate - Afr Amer 98 mL/min (>60); Glucose 90 mg/dL (74-106); Potassium 3.9 mmol/L (3.5-5.1); Sodium Level 142 mmol/L (136-145)
== END | disposition home or self-care (01) ==
LOC: BIMLAB 09:31
PROVIDERS: PCP Internal Medicine; Referring Provider Internal Medicine; Visit Provider Internal Medicine
DX: I10 Essential (primary) hypertension (principal)
CPT/HCPCS: 36415; 80048

== ENCOUNTER → 2023-05-15 | Outpatient (CLI) | payer BC, SELFPAY ==
[2023-05-15 12:17] LABS: Absolute Lymphocyte Count 1.48 X10^3/uL (0.83-4.51); Absolute Neutrophil Count 4.3 X10^3/uL (2.0-7.7); Basophil# 0.08 X10^3/uL; Basophil% 1.2 % (0-1); Eosinophils% 4.5 % (0-5); Hemoglobin 11.9 g/dL (12.0-15.0); Lymphocyte # 1.48 X10^3/ul (0.83-4.51); Lymphocyte % 22.4 % (19-41); Mean Corp Hgb Conc 31.3 g/dL (32-36); Mean Corpuscular Hgb 28.5 pg (27.0-32.0); Mean Corpuscular Volume 91.1 fL (81-99); Mean Platelet Vol. 11.4 fl (6.2-12.0); Monocyte# 0.46 X10^3/uL; NRBC Flagged by Analyzer 0 % (0-5); Neutrophil # 4.25 X10^3/uL (2.7-7.7); Neutrophil % 64.4 % (47-70); Platelet Count 281 K/mm3 (150-450); RBC Distribution Width CV 13.2 % (11.6-14.6); RBC Distribution Width SD 43.8 fl (35.1-43.9); Red Blood Count 4.17 M/mm3 (4.2-5.4); White Blood Count 6.6 K/mm3 (4.4-11.0)
[2023-05-15 13:02] LABS: ALB/GLOB Ratio 1.1 RATIO (0.9-2.4); AST(SGOT) 15 U/L (15-37); Alanine Aminotransfer ALT/SGPT 19 U/L (13-56); Albumin, Serum 3.5 g/dL (3.2-5.0); Alkaline Phosphatase 59 U/L (45-117); Anion Gap 7 (5-15); BUN 14 mg/dL (7-18); BUN/Creat Ratio 16.2 RATIO (10-20); Calcium,Total 8.8 mg/dL (8.5-10.1); Chloride 106 mmol/L (98-107); Cholesterol 189 mg/dL (200); Creatinine, Serum 0.86 mg/dL (0.55-1.02); EST Glomerular Filtration Rate 73 mL/min (>60); Est Glom Filt Rate - Afr Amer 88 mL/min (>60); Globulin 3.3 g/dL (2.2-4.2); Glucose 96 mg/dL (74-106); High Density Lipoprotein 69 mg/dL; Potassium 3.9 mmol/L (3.5-5.1); Protein, Total 6.8 g/dL (6.4-8.2); Sodium Level 140 mmol/L (136-145); Triglycerides 67 mg/dL; Very Low Density Lipoprotein 13 mg/dL (5-40)
== END | disposition home or self-care (01) ==
LOC: BIMLAB 08:51
PROVIDERS: PCP Internal Medicine; Referring Provider Internal Medicine; Visit Provider Internal Medicine
DX: I10 Essential (primary) hypertension (principal)
CPT/HCPCS: 36415; 80053; 80061; 85025

== ENCOUNTER → 2023-07-12 | Outpatient (CLI) | payer BC, SELFPAY ==
--- OUTSIDE RECORDS SUMMARY | 2023-07-12 19:17 | XMS RPT_ITS | CCD ---
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 Name Role Phone ELIJAH KIRK Unavailable Unavail able Results Test Name Value Interpretation Reference Range Facil ity Encounters Encounter Date Encounter Type Care Provider Facility Start: 12-05-2016 End: 12-07-2016 Ambulatory ELIJAH BARNHART [facility] Summary Purpose Family History No Family History Records Found Advance Directives No Advanced Directives Records Found Additional Source Comments INFORMATION SOURCE (unrecogn ized section and content) FOR RECORDS PERTAINING TO PATIENTS WHO ARE OR HAVE BEEN ENROLLED IN A CHEMICAL DEPENDENCY/SUBSTANCEABUSE PROGRAM, SOME INFORMATION MAY BE OMITTED. This clinical summary was aggregated from multiple sources. Caution should be exercised in using it in the provision of clinical care. This summary normalizes information from multiple sources, and as a consequence, information in this document may materially change the coding, format and clinical context of patient data. In addition, data may be omitted in some cases. CLINICAL DECISIONS SHOULD BE BASED ON THE PRIMARY CLINICAL RECORDS. [facility]. provides no warranty or guarantee of the accuracy or completeness of information in this document.
[2023-07-17 20:07] LABS: HPV APTIMA, High Risk Negative (Negative)
== END | disposition home or self-care (01) ==
LOC: LABSPEC 16:08
PROVIDERS: PCP Internal Medicine; Referring Provider Nurse Practitioner Women's Health; Visit Provider Nurse Practitioner Women's Health
DX: Z12.4 Encounter for screening for malignant neoplasm of cervix (principal)
CPT/HCPCS: 87624; 88175; G0145

== ENCOUNTER → 2023-11-06 | Outpatient (CLI) | payer BC, SELFPAY ==
[2023-11-06 12:56] LABS: Anion Gap 6 (5-15); BUN 16 mg/dL (7-18); BUN/Creat Ratio 18.3 RATIO (10-20); Calcium,Total 9.4 mg/dL (8.5-10.1); Chloride 106 mmol/L (98-107); Creatinine, Serum 0.88 mg/dL (0.55-1.02); EST Glomerular Filtration Rate 72 mL/min (>60); Est Glom Filt Rate - Afr Amer 87 mL/min (>60); Glucose 91 mg/dL (74-106); Potassium 3.8 mmol/L (3.5-5.1); Sodium Level 138 mmol/L (136-145)
[2023-11-06 13:07] LABS: Vitamin B12 445 pg/mL (211-911)
== END | disposition home or self-care (01) ==
LOC: LAB 12:06
PROVIDERS: PCP Internal Medicine; Referring Provider Internal Medicine; Visit Provider Internal Medicine
DX: E56.9 Vitamin deficiency, unspecified (principal); I10 Essential (primary) hypertension
CPT/HCPCS: 36415; 80048; 82306; 82607

== ENCOUNTER → 2023-12-12 | Outpatient (CLI) | payer BC, SELFPAY ==
--- NOTE | 2023-12-12 07:40 | BI_ITS ---
MAMMOGRAPHY - BILATERAL SCREENING REASON FOR EXAM: Female, 53 years old. Routine annual screening examination. PERTINENT HISTORY: Non-contributory. TECHNIQUE: Digital bilateral breast iwona (3D mammographic acquisition) in the CC and MLO projections. 2-D mediolateral oblique (MLO) and craniocaudad (CC) views of both breasts were obtained. CAD: Full Field Digital Mammography with Computer Added Detection was performed. COMPARISON: Comparison is made with prior study of August 25, 2022 and July 13, 2021. FINDINGS: Breast Composition: The breasts are heterogeneously dense, which may obscure small masses. There are no dominant masses or suspicious calcifications. Stable small benign-appearing bilateral axillary lymph nodes. No other significant abnormalities are identified. There has been no significant change since the prior study. BI/SCRN MAMM (CAD)W/IWONA BILAT IMPRESSION: Stable bilateral screening mammogram. Yearly follow-up mammogram recommended. (A) ASSESSMENT CATEGORY: BIRADS Category 2: Benign. A letter regarding these results will be sent to the patient by the facility within 30 days. Approximately 10% of breast cancers are not detected by mammography. A normal mammogram should not delay biopsy of a clinically suspicious abnormality. [id number] Electronically Signed: Aidan Wheeler MD at 9:33 EDT ,
== END | disposition home or self-care (01) ==
LOC: OPBI 07:40
PROVIDERS: PCP Internal Medicine; Referring Provider Nurse Practitioner Women's Health; Visit Provider Nurse Practitioner Women's Health
DX: Z12.31 Encounter for screening mammogram for malignant neoplasm of breast (principal)
CPT/HCPCS: 77063; 77067

== ENCOUNTER 2024-01-01 07:43 | Day surgery (SDC) | payer BC, SELFPAY ==
[2024-01-01] VITALS (7 sets, daily range): BP systolic 99–103; BP diastolic 68–75; PULSE 72–88; RESP 16; TEMP 36.3–36.6; O2SAT 97–100; BMI 29.3
--- NOTE | 2024-01-01 07:51 | HP.PCM_ITS ---
[facility] - General General Date of Service: 01/01/24 HPI Narrative MANDEEP MCRAE, is a 53 F who presents for a screening colonoscopy. Patient never had previous colonoscopy. Patient's maternal grandfather and maternal aunt were both diagnosed with colon cancer under the age of 50. Patient has bowel movements daily denies any blood. Patient denies any chronic abdominal pain/nausea/vomiting/reflux. [facility] Medical History (Updated 12/28/23 @ 12:44 by Sheela Franco) Wears contact lenses History of steroid therapy Low iron Non-smoker History of stress test Family history of colon cancer Colon cancer screening Flu vaccine need Cough Obesity (BMI 30.0-34.9) Elevated glucose Vitamin deficiency Anemia Tendinitis Right shoulder pain Lumbar radiculopathy Seasonal allergies Hypertension Home Medications ?Medication ?Instructions ?Recorded ?Last Taken ?Type levonorgestrel 21 mcg/24 hr (up to 1 insert intrauterine ONCE HEAVY 06/27/17 Unknown History 8 years) 52 mg intrauterine device BLEEDING/UTERINE (Mirena) lisinopril 20 mg tablet See Rx Instructions .Route 05/08/23 01/01/24 Rx .COMPLEX #90 tabs hydrochlorothiazide 25 mg tablet 25 mg PO DAILY #90 tabs 12/05/23 Unknown Rx semaglutide 0.25 mg or 0.5 mg (2 0.25 mg subcut SIMPSON 12/28/23 Unknown History mg/3 mL) subcutaneous pen injector Allergy/AdvReac Type Severity Reaction Status Date / Time No Known Allergies Allergy Verified 01/01/24 08:05 Family History (Updated 11/20/23 @ 13:52 by Dawn Sow) Father Cancer lyphoma Hyperlipemia Hypertension Mother Hypertension Arthritis Grandfather Colon cancer At less than 60yrs of age Grandfather Heart disease Aunt Colon cancer At less than 60yrs of age Surgical History (Updated 12/28/23 @ 12:44 by Sheela Franco) History of wisdom tooth extraction H/O bilateral hip replacements Social History Smoking Status: Never smoker alcohol intake: current alcohol intake frequency: a few times a week Alcohol type: beer and wine details: social substance use type: does not use caffeine: Yes what type of physical activity do you participate in: none seatbelt use: always do you feel safe at home: Yes additional social history: Nishant- Daily Record Patient works at [employer] Past Medical/Surgical History Planned Operation Planned Operative Procedure(s): CSCOPE S.O.S: No Previous Hospitalizations/Surgeries HX Hospitalizations: No HX of Surgeries: EPIDURAL LABOR 2003 Any Problems With Anesthesia: No You/Your Family Experience Fever (Hyperthermia) With Anes: No Cholinesterase deficiency: No Cardiovascular Hx Chest Pain within Last 2 months: No Hx of Irregular Heartbeat and/or Afib: No Hx Heart Attack: No Hx Congestive Heart Failure: No Hx Rheumatic Fever: No Hx Hypertension: Yes (CONTROLLED WITH) Hx Internal Defibrillator: No Hx Pacemaker: No Hx Cardiac Catheterization: No Hx Cardiac Surgery/Stents/Etc.: No Hx Stress Test: Yes (STRESS TEST, NEG) Hx Pain in Legs when Walking/Leg Cramps: No Respiratory Chronic Cough: No HX of Shortness of Breath: No Hoarseness: No Hx Chronic Obstructive Pulmonary Disease (COPD): No Hx Asthma: No Hx Emphysema: No Hx Sleep Apnea: No Hx Respiratory Tract Infection/Cold (presently): No Do You Snore Loudly (louder than talking or can be heard): No Do You Often Feel Tired/ Fatigued/ Sleepy Dring Daytime?: No Has Anyone Observed You Stop Breathing During Sleep?: No Result (for STOP score): Negative Hx Smoking: No Smoking Status: Never smoker Gastrointestinal Hx Gastrointestinal Disorders: No Hx Gastrointestinal Bleed: No Hx Ulcer: No Hx Hiatal Hernia: No Difficulty Chewing/Swallowing: No Special diet followed at home: No Hx Unplanned Weight Loss of 20#: No HX Unplanned Weight Gain of 20#: No Neurological Hx Seizures: No HX Syncope/Blackout Spells/Unconsciousness: No Hx Transient Ischemic Attacks (TIA): No Hx Multiple Sclerosis: No Hx Parkinson's Disease: No Hx Head/Neck Injury: No Hx Headaches: No Hx Back Injury/Pain: Yes (BACK PAIN/HIP DYSPLASIA/ARTHRITIS) Recent Onset of Speech Difficulty: No Restless Legs: No Does patient have nerve stimulator: No Blood Disorder Hx Leukemia: No Bleeding Tendencies: No Hx Deep Vein Thrombosis: No Hx High Cholesterol: No Blood Transmitted Disease: No Hx Hepatitis: No Hx Cirrhosis: No Hx Anemia: No Hx Blood Disorders: No Reproduction : No Is Patient Lactating: No Hx Hysterectomy: No Hx Tubal Ligation: No Are You Post Menopause: No Genitourinary Hx Renal Disease: No Hx Dialysis: No Musculoskeletal Hx Arthritis: Yes Hx Rheumatoid Arthritis: No Hx Gout: No Recent Onset of an Orthopedic Problem: Yes (CHRONIC HIP PAIN) Endocrine Hx Diabetes: No Thyroid Disease: No Hx Steroid Therapy: No Psycho/Social Hx Substance Use: No Hx Alcohol Use: Yes (3-4 DRINKS/WEEK) Hx Anxiety: No Hx Depression: No Mental Illness: No Hx Dementia: No Miscellaneous Hx Cancer: No Recent Exposure to Contagious Disease: No Hx of C-Diff: No Any Loose Teeth: No Allergies No Known Allergies Allergy (Verified 01/01/24 08:05) Discharge Is Pt Admitted From a Usp, or a Residential: No After D/C, Where Do you Plan to Go: Return Home Physical Exam Const alert, oriented x3 and no apparent distress HEENT normocephalic and head/scalp atraumatic Resp normal respiratory effort Cardio regular rate GI soft to palpation and non-tender; Negative for non-distended Palpation: Negative for guarding Extremity no clubbing, cyanosis or edema Skin no rashes or lesions noted Neuro CN's II-XII intact bilaterally Psych mental status grossly normal Assessment & Plan Assessment/Plan (1) Colon cancer screening: Surgery Risks - Colonoscopy I discussed with the patient the risks of the procedure: Yes Risks Include but are not Limited To: Risks include but are not limited to: Bleeding, perforation requiring further surgery, inability to complete colonoscopy requiring barium enema.
[2024-01-01 08:25] LABS: Internal QC Validated? YES +Cl - CLEAR BKGD; Pregnancy, Urine Negative Negative; Record Kit Lot#,Urine Preg HCG0000772476
[2024-01-01] MEDS: Lactated Ringers 1,000 ML 15 ML IV (08:26)
--- NOTE | 2024-01-01 08:52 | PCM.PRE.AN2 ---
ASA Classification* ASA Classification ASA Classification: 2 Assessment & Plan Anesthesia* Anesthesia Assessment Anesthesia Assessment: Discussed sedation and/or anesthesia options, risks, benefits, and alternatives with patient/parents/legal guardian/POA. Questions invited. The patient/parents/legal guardian/POA seems to understand and agrees to proceed with anesthesia plan. Reviewed the physical assessment, medical history, allergy history and patient home medications list prior to surgery/procedure/anesthetic and documented any changes. Performed airway and anesthesia risk assessments. Anesthesia Type Anesthesia Type: MAC (*see written pre anesthesia record for full assessment) Anesthesia Focused Assessment* Temperature: 98 F Pulse Rate: 88 Blood Pressure: 103/75 Respiratory Rate: 16 Pulse Ox: 100 Airway Assessment Mouth opens: >3 cm Mallampati Score: II Focused Labs Anesthesia Preop lab: CBC WBC 6.6 K/mm3 (4.4-11.0) 05/15/23 08:52 RBC 4.17 M/mm3 (4.2-5.4) L 05/15/23 08:52 Hgb 11.9 g/dL (12.0-15.0) L 05/15/23 08:52 Hct 38.0 % (37-47) 05/15/23 08:52 Plt Count 281 K/mm3 (150-450) 05/15/23 08:52 CHEMISTRY Potassium 3.8 mmol/L (3.5-5.1) 11/06/23 12:09 Sodium 138 mmol/L (136-145) 11/06/23 12:09 BUN 16 mg/dL (7-18) 11/06/23 12:09 Creatinine 0.88 mg/dL (0.55-1.02) 11/06/23 12:09 Glucose 91 mg/dL (74-106) 11/06/23 12:09 TSH 1.21 uIU/mL (0.358-3.74) 09/15/22 15:50 COAG Urine Test Negative Negative 01/01/24 08:10 Pre-Assessment Diagnosis/Proposed Procedure Planned Operative Procedure(s): CSCOPE Anesthesia History 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 When Was Last Pacemaker Check QUESTION #4 FULL TEXT: You/Your Family Experience fever (hyperthermia) with Anesthesia Last Oral Intake Last Oral intake: Last Oral Intake NPO since Meds taken in AM with sips of water? Meds patient instructed to take am of surgery PONV PONV - mailroom messenger: PONV - mailroom messenger Female Yes 12/28/23 12:39 HX of Motion Sickness Yes 12/28/23 12:39 HX of N/V After Surgery No 12/28/23 12:39 Non-Smoker Yes 12/28/23 12:39 Duration of Surgery greater No 12/28/23 12:39 than 60 minutes Number of Risk Factors 3 12/28/23 12:39 PONV Score Moderate Risk 12/28/23 12:39 Height & Weight Height & Weight: Anesthesia: Height & Weight Height 5 ft 8 in 01/01/24 08:09 Weight: 87.6 kg 01/01/24 08:09 Body Mass Index (BMI) 29.3 01/01/24 08:09 Respiratory Assessment Respiratory Assessment - mailroom messenger: Respiratory Tract Infection Hx - mailroom messenger Hx Respiratory Tract Infection No 01/01/24 07:52 STOP Sleep Apnea STOP Sleep Apnea - mailroom messenger: STOP Sleep Apnea - mailroom messenger Hx Hypertension Yes: CONTROLLED WITH 01/01/24 07:52 Hx Sleep Apnea No 01/01/24 07:52 CPAP BIPAP Do you snore loudly (louder No 01/01/24 07:52 than talking or can be heard Do you often feel tired/ No 01/01/24 07:52 fatigued/ sleepy during daytime? Has anyone observed you stop No 01/01/24 07:52 breathing during sleep? STOP Results Negative 01/01/24 08:24 QUESTION #5 FULL TEXT : Do you snore loudly (louder than talking or can be heard through closed doors)? 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 Specify any problems Hx of Preganancy in last 3 N/A 12/28/23 12:39 Months Nurse Filling Out Transfusion NBUCHER 12/28/23 12:39 & Questions: Date: 12/28/23 12/28/23 12:39 Time: 12:40 12/28/23 12:39 Patient unable to answer at this time (ie. confused, unrespo /Reproduction History /Reproductive History - mailroom messenger: /Reproductive Hx- mailroom messenger Hx Now No 01/01/24 07:52 Gestational Age (in weeks): EDC: Hx Hx Para Hx Section SAB No 12/28/23 12:39 Active Medications Active Medications: Current Medications Generic Name Dose Route Start Last Admin Trade Name Freq PRN Reason Stop Dose Admin Lactated Ringer's 1,000 mls @ 15 mls/hr 01/01/24 08:00 01/01/24 08:26 IV 15 mls/hr .Q48H MIRNA Administration PFSH Medical History Wears contact lenses History of steroid therapy Low iron Non-smoker History of stress test Family history of colon cancer Colon cancer screening Flu vaccine need Cough Obesity (BMI 30.0-34.9) Elevated glucose Vitamin deficiency Anemia Tendinitis Right shoulder pain Lumbar radiculopathy Seasonal allergies Hypertension Home Medications ?Medication ?Instructions ?Recorded ?Last Taken ?Type levonorgestrel 21 mcg/24 hr (up to 1 insert intrauterine ONCE HEAVY 06/27/17 Unknown History 8 years) 52 mg intrauterine device BLEEDING/UTERINE (Mirena) lisinopril 20 mg tablet See Rx Instructions .Route 05/08/23 01/01/24 Rx .COMPLEX #90 tabs hydrochlorothiazide 25 mg tablet 25 mg PO DAILY #90 tabs 12/05/23 Unknown Rx semaglutide 0.25 mg or 0.5 mg (2 0.25 mg subcut SIMPSON 12/28/23 Unknown History mg/3 mL) subcutaneous pen injector Allergy/AdvReac Type Severity Reaction Status Date / Time No Known Allergies Allergy Verified 01/01/24 08:05 Family History Father Cancer lyphoma Hyperlipemia Hypertension Mother Hypertension Arthritis Grandfather Colon cancer At less than 60yrs of age Grandfather Heart disease Aunt Colon cancer At less than 60yrs of age Surgical History History of wisdom tooth extraction H/O bilateral hip replacements Social History Smoking Status: Never smoker alcohol intake: current alcohol intake frequency: a few times a week Alcohol type: beer and wine details: social substance use type: does not use caffeine: Yes what type of physical activity do you participate in: none seatbelt use: always do you feel safe at home: Yes additional social history: Nishant- Daily Record Patient works at [employer] Review of Systems (Anesthesia) ROS Narrative System reviewed and no additional complaints, except as documented.
--- NOTE | 2024-01-01 09:00 | COLBX_PTH ---
PATIENT: MANDEEP MCRAE LOC: EN U#:[id number] AGE/SX: 53/F ROOM: RE01/01/[address]: Dr. Keli Caldera MD : 1970 BED: DIS: 01/01/2024 SPEC #: [id number] RECD: 01/01/24 10:00 STATUS: SIMBA LYNETTE #: [id number] ALBA: 01/01/24 09:[address]: Keli Caldera DEPT: SURGICAL PATHOLOGY RECD BY: Dana Colunga ENTERED: 01/01/24 10:44 SP TYPE: COLON BX OTHR DR: Dr. Kendrick Downs MD Tissues: Rectum, NOS Procedures: Surgery Specimen Level IV HEADER OPERATION: Colonoscopy with biopsy PRE-OP DIAGNOSIS: Colon cancer screening TISSUE SUBMITTED: Rectum polyp biopsy MICROSCOPIC DIAGNOSIS Rectum polyp, biopsy: Hyperplastic polyp. SAYRA/ 01/02/2024 MICROSCOPIC DESCRIPTION Slides are reviewed. GROSS DESCRIPTION Received in fixative is one container labeled with the patient's name and designated Rectum polyp biopsy. The specimen consists of one irregular fragment of light ibarra soft tissue that measures 0.2 x 0.1 x 0.1 cm. The specimen is totally submitted in one cassette. SAYRA/ 01/01/2024 TC:1 CPT:76312
--- NOTE | 2024-01-01 09:21 | OP.CCLET_ITS ---
01/01/2024 Kendrick Downs MD [address] [place] [address] [place] [address] Re : Colonoscopy procedure for Carmen Bobby Dear Dr. Downs This procedure was performed on Monday, January 01, 2024. My impressions and recommendations are as follows: Impressions : - Hemorrhoids found on perianal exam. - Non-bleeding internal hemorrhoids. - One less than 5 mm polyp in the rectum, removed with a cold biopsy forceps. Resected and retrieved. - The examination was otherwise normal. Recommendations : - Discharge patient to home. - Resume previous diet. - Continue present medications. - Await pathology results. - Repeat colonoscopy in 5-10 years for surveillance based on pathology results. My findings are described in the full procedure note, which is enclosed. If I can be of further assistance, please feel free to contact me at Doctor phone number(s): , Work: . Sincerely, MD Keli Bhandari MD 01/01/2024 9:20:54 AM This report has been signed electronically.
--- NOTE | 2024-01-01 09:21 | OP.COLON_ITS ---
Patient Name: Carmen Bobby Procedure Date: 01/01/2024 8:50 AM Date of : 1970 Age: 53 Procedure: Colonoscopy Indications: Screening for colorectal malignant neoplasm Providers: Keli Caldera MD Referring MD: Kendrick Downs MD Medicines: Monitored Anesthesia Care Patient Profile: This is a 53 year old female. Last Colonoscopy: none. The patient's first colonoscopy is today. Complications: No immediate complications. Procedure: Pre-Anesthesia Assessment: - Prior to the procedure, a History and Physical was performed, and patient medications and allergies were reviewed. The patient's tolerance of previous anesthesia was also reviewed. The risks and benefits of the procedure and the sedation options and risks were discussed with the patient. All questions were answered, and informed consent was obtained. Prior Anticoagulants: The patient has taken no anticoagulant or antiplatelet agents. ASA Grade Assessment: Per anesthesia. After reviewing the risks and benefits, the patient was deemed in satisfactory condition to undergo the procedure. After I obtained informed consent, the scope was passed under direct vision. Throughout the procedure, the patient's blood pressure, pulse, and oxygen saturations were monitored continuously. The colonoscope was introduced through the anus and advanced to the cecum, identified by the appendiceal orifice, ileocecal valve and palpation. The colonoscopy was performed without difficulty. The patient tolerated the procedure well. The quality of the bowel preparation was good. Scope In: 9:00:37 AM Scope Withdrawal Time 0 hours 7 minutes 33 seconds Scope Out: 9:15:18 AM Total Procedure Duration Time 0 hours 14 minutes 41 seconds Findings: Hemorrhoids were found on perianal exam. Non-bleeding internal hemorrhoids were found. The hemorrhoids were Grade I (internal hemorrhoids that do not prolapse). A less than 5 mm polyp was found in the rectum. The polyp was sessile. The polyp was removed with a cold biopsy forceps. Resection and retrieval were complete. The exam was otherwise without abnormality. Impression: - Hemorrhoids found on perianal exam. - Non-bleeding internal hemorrhoids. - One less than 5 mm polyp in the rectum, removed with a cold biopsy forceps. Resected and retrieved. - The examination was otherwise normal. Recommendation: - Discharge patient to home. - Resume previous diet. - Continue present medications. - Await pathology results. - Repeat colonoscopy in 5-10 years for surveillance based on pathology results. Procedure Code(s): --- Professional --- 76890, PT, Colonoscopy, flexible; with biopsy, single or multiple Diagnosis Code(s): --- Professional --- Z12.11, Encounter for screening for malignant neoplasm of colon K64.0, First degree hemorrhoids D12.8, Benign neoplasm of rectum CPT copyright 2021 [employer]. All rights reserved. The codes documented in this report are preliminary and upon welding process engineer review may be revised to meet current compliance requirements. MD Keli Bhandari MD 01/01/2024 9:20:54 AM This report has been signed electronically. Number of Addenda: 0 Note Initiated On: 01/01/2024 8:50 AM
--- NOTE | 2024-01-01 09:25 | PCM.POST.ANE ---
Anesthesia: Postop Eval I Current Vital Signs Temperature: 97.3 F Pulse Rate: 72 Blood Pressure: 99/68 Respiratory Rate: 16 Pulse Ox: 97 Oxygen Delivery Method: Room Air Assessment Airway patent: Yes Spontaneous unlabored respirations: Yes Mental status: Asleep nausea: No Vomiting: No Anesthesia Complication: No Fluid Hydration Crystalloid volume administer (ml): 600 Total IV fluid infused: 600 Progress Note Anesthesia document: Postop Eval 1 completed: Yes
--- NOTE | 2024-01-01 09:40 | PCM.POSTANE2 ---
Anesthesia Postop Eval I Sum Postop Eval Completion status Anesthesia document: Postop Eval 1 completed: Yes Anesthesia Postop Eval I Summary Anesthesia Postop Eval I Summary: Anesthesia Postop Eval I: Assessment Summary Airway patent Yes 01/01/24 09:26 [email or web address] Spontaneous unlabored Yes 01/01/24 09:26 [email or web address] respirations Mental status Asleep 01/01/24 09:26 [email or web address] nausea No 01/01/24 09:26 [email or web address] Vomiting No 01/01/24 09:26 [email or web address] Anesthesia Postop Eval I: Fluid Summary Crystalloid volume administer 600 01/01/24 09:26 [email or web address] (ml) Colloids volume administered ( ml) Blood Product volume administered (ml) Total IV fluid infused 600 01/01/24 09:26 [email or web address] Anesthesia Postop Eval I: Summary Notes Anesthesia Complication No 01/01/24 09:26 [email or web address] Anesthesia Complication Comment: Post-operative progress note Anesthesia: Postop Eval II Evaluation Mental status: Awake Pain Level: 0 nausea: No Vomiting: No
== END 2024-01-01 09:58 | disposition home or self-care (01) ==
LOC: EN 07:44 → AC 07:44
PROVIDERS: Anesthesiology; PCP Internal Medicine; Referring Provider Internal Medicine; Visit Provider Surgery
PROC: 0DJD8ZZ Inspection of Lower Intestinal Tract, Via Natural or Artificial Opening Endoscopic (ICD-10-PCS; CPT 45378; principal; 2024-01-01 08:55)
DX: Z12.11 Encounter for screening for malignant neoplasm of colon (principal); K62.1 Rectal polyp; K64.0 First degree hemorrhoids; I10 Essential (primary) hypertension; Z79.899 Other long term (current) drug therapy; Z80.0 Family history of malignant neoplasm of digestive organs
CPT/HCPCS: 45380; 81025; 88305; J7120; J2405

== ENCOUNTER → 2024-05-03 | Outpatient (CLI) | payer BC, SELFPAY ==
[2024-05-03 12:08] LABS: Absolute Lymphocyte Count 1.41 X10^3/uL (0.83-4.51); Absolute Neutrophil Count 3.3 X10^3/uL (2.0-7.7); Basophil# 0.06 X10^3/uL; Basophil% 1.1 % (0-1); Eosinophils% 3.7 % (0-5); Hemoglobin 12.5 g/dL (12.0-15.0); Lymphocyte # 1.41 X10^3/ul (0.83-4.51); Lymphocyte % 25.8 % (19-41); Mean Corp Hgb Conc 32.1 g/dL (32-36); Mean Corpuscular Hgb 29.9 pg (27.0-32.0); Mean Corpuscular Volume 93.3 fL (81-99); Mean Platelet Vol. 11.4 fl (6.2-12.0); Monocyte# 0.45 X10^3/uL; Monocyte% 8.2 % (0-10); NRBC Flagged by Analyzer 0 % (0-5); Neutrophil # 3.32 X10^3/uL (2.7-7.7); Neutrophil % 60.7 % (47-70); Platelet Count 271 K/mm3 (150-450); RBC Distribution Width SD 44.5 fl (35.1-43.9); Red Blood Count 4.18 M/mm3 (4.2-5.4); White Blood Count 5.5 K/mm3 (4.4-11.0)
[2024-05-03 13:13] LABS: ALB/GLOB Ratio 1.1 RATIO (0.9-2.4); AST(SGOT) 12 U/L (15-37); Alanine Aminotransfer ALT/SGPT 15 U/L (13-56); Albumin, Serum 3.6 g/dL (3.2-5.0); Alkaline Phosphatase 54 U/L (45-117); Anion Gap 7 (5-15); BUN 11 mg/dL (7-18); BUN/Creat Ratio 13.3 RATIO (10-20); Calcium,Total 9.2 mg/dL (8.5-10.1); Chloride 109 mmol/L (98-107); Cholesterol 178 mg/dL (200); Creatinine, Serum 0.83 mg/dL (0.55-1.02); EST Glomerular Filtration Rate 76 mL/min (>60); Est Glom Filt Rate - Afr Amer 92 mL/min (>60); Globulin 3.4 g/dL (2.2-4.2); Glucose 86 mg/dL (74-106); High Density Lipoprotein 75 mg/dL; Potassium 3.7 mmol/L (3.5-5.1); Sodium Level 140 mmol/L (136-145); Triglycerides 61 mg/dL; Very Low Density Lipoprotein 12 mg/dL (5-40)
[2024-05-06 15:07] LABS: Lipoprotein A 191.4 nmol/L (<75.0)
== END | disposition home or self-care (01) ==
PROVIDERS: PCP Internal Medicine; Referring Provider Internal Medicine; Visit Provider Internal Medicine
DX: Z00.00 Encounter for general adult medical examination without abnormal findings (principal); I10 Essential (primary) hypertension
CPT/HCPCS: 36415; 80053; 80061; 83695; 85025

== ENCOUNTER → 2024-05-30 | Outpatient (CLI) | payer BC, SELFPAY ==
--- NOTE | 2024-05-30 06:55 | CT_ITS ---
STUDY: CT CHEST WITHOUT CONTRAST REASON FOR EXAM: Female, 53 years old. Essential (primary) hypertension RADIATION DOSAGE (If Supplied By Facility): CTDIvol = ( 12.19 ) mGy, DLP = ( 195.04 ) mGycm TECHNIQUE: Transaxial imaging was performed without the administration of intravenous contrast material. Cardiac over read examination. Individualized dose optimization techniques were used for this CT. COMPARISON: No relevant priors. FINDINGS: CHEST The lungs are normal. There is no demonstrated pleural abnormality. No coronary artery calcification seen. Normal mediastinum. Normal hilar regions. Normal unenhanced pulmonary arteries. Normal aorta arch and descending thoracic aorta. Normal osseous structures. Cysts are seen in the left lumbar liver. The larger cyst measures 3.3 cm x 3.[address]/Limited Chest CT Cardiac Only IMPRESSION: No evidence of coronary artery calcification. Electronically Signed: Aidan Wheeler MD at 9:12 EST ,
--- NOTE | 2024-05-30 09:17 | CA.SCORE ---
Calcium Scoring Date of Study:: 05/30/24 Indications Indications: HTN Coronary Calcium Scoring: High-resolution Computed Tomographic imaging of the chest was performed on [05/30/24 ], with particular attention paid to the coronary arteries. Images from the examination were analyzed for the presence and extent of coronary artery calcification , using coronary calcium quantification software. The patient tolerated the procedure well and there were no complications. The results of the coronary calcification analysis are provided below. Findings Coronary Artery Left Main (LM): 0 Left Anterior Descending (LAD): 0 Left Circumflex (LCX): 0 Right Coronary Artery (RCA): 0 Total Agatston Score: 0 Percentile Rankin% Calcium Scoring Interpretation: Different methods to categorize the overall amount of coronary plaque. Overall amount CAC SIS Visual of coronary plaque P1 Mild -100 <2 1-2 vessels with mild amount of plaque P2 Moderate 101-300 3-4 1-2 vessels with moderate amount, 3 vessels with mild amount of plaque P3 Severe 301-999 5-7 3 vessels with moderate amount, 1 vessel with severe amount of plaque P4 Extensive >1000 >8 2-3 vessels with severe amount of plaque Conclusion: No atherosclerotic plaque noted
== END | disposition home or self-care (01) ==
LOC: CT 06:52
PROVIDERS: PCP Internal Medicine; Referring Provider Internal Medicine; Visit Provider Internal Medicine
DX: Z00.00 Encounter for general adult medical examination without abnormal findings (principal); I10 Essential (primary) hypertension
CPT/HCPCS: 75571; 76380

== ENCOUNTER → 2024-07-31 | Outpatient (CLI) | payer OTHER, SELFPAY ==
[2024-07-31 18:27] LABS: Follicle Stimulating Hormone 30.1 mIU/mL
== END | disposition home or self-care (01) ==
PROVIDERS: PCP Internal Medicine; Referring Provider Nurse Practitioner Women's Health; Visit Provider Nurse Practitioner Women's Health
DX: N91.5 Oligomenorrhea, unspecified (principal)
CPT/HCPCS: 36415; 82670; 83001

== ENCOUNTER → 2024-11-06 | Outpatient (CLI) | payer OTHER, SELFPAY ==
--- NOTE | 2024-11-06 15:26 | US_ITS ---
PROCEDURE: PELVIC W/ TRANSVAGINAL REASON FOR EXAM: BLEEDING History of uterine fibroids. TECHNIQUE: Transabdominal and transvaginal pelvic ultrasound COMPARISON: None FINDINGS: LMP: October 28, 2024. Measurements: Uterus: 11.3 cm x 6.8 cm x 5.8 cm with a volume of 232.84 mL Endometrial Thickness: 7 mm Right Ovary: 2.7 cm x 2.2 cm x 1.9 cm with a volume of 74.39 mL. Left Ovary: 3 cm x 1.8 cm x 1.7 cm with a volume of 72 mL. TRANSABDOMINAL: Uterus: Enlarged fibroid uterus. The largest fibroid measures 3.4 cm 2.6 cm 2.4 cm. Nabothian cyst. Endometrium: 7 mm. It is hyperechoic. Right ovary: Dominant follicle in the right ovary measuring 1.5 cm x 1.6 cm x 1.8 cm. Left ovary: Normal size and echotexture. Other: No large pelvic mass identified. Transvaginal sonography was performed to better visualize the endometrium. TRANSVAGINAL: Uterus: Anteverted. 2 fibroids are seen as described. Endometrium: Normal echotexture. Right ovary: Small ovarian follicle. Left ovary: Normal size and echotexture. Other adnexal findings: None. Cul-de-sac: No free intraperitoneal fluid identified. Tenderness: No tenderness US/Pelvic w/ Transvaginal IMPRESSION: Enlarged fibroid uterus. Small right ovarian follicle. Reading Location: [place] [id number]
== END | disposition home or self-care (01) ==
LOC: US 15:24
PROVIDERS: PCP Internal Medicine; Referring Provider Nurse Practitioner Women's Health; Visit Provider Nurse Practitioner Women's Health
DX: T83.32XA Displacement of intrauterine contraceptive device, initial encounter (principal); Z87.42 Personal history of other diseases of the female genital tract; X58.XXXA Exposure to other specified factors, initial encounter
CPT/HCPCS: 76830; 76856

== ENCOUNTER → 2024-12-17 | Outpatient (CLI) | payer OTHER, SELFPAY ==
--- NOTE | 2024-12-17 07:45 | BI_ITS ---
EXAM: SCRN MAMM (CAD)W/IWONA BILAT DATE: 12/17/2024 CLINICAL HISTORY: F, Age 54 y/o , SCREENING MAMMOGRAM FOR BREAST CANCER TECHNIQUE: SCRN MAMM (CAD)W/IWONA BILAT COMPARISON: Prior exam(s) were compared FINDINGS: TISSUE DENSITY: The breasts are heterogeneously dense, which may obscure small masses. Bilateral Breast Mammographic Findings: No suspicious masses, calcifications or other abnormalities are identified. BI/SCRN MAMM (CAD)W/IWONA BILAT IMPRESSION: No mammographic evidence of malignancy in either breast. OVERALL FINAL ASSESSMENT BI-RADS 1: NEGATIVE. RECOMMENDATION: Routine annual follow-up in 1 Year A letter with findings and recommendations will be mailed to the patient. Reading Location: [id number]
== END | disposition home or self-care (01) ==
LOC: OPBI 07:44
PROVIDERS: PCP Internal Medicine; Referring Provider Nurse Practitioner Women's Health; Visit Provider Nurse Practitioner Women's Health
DX: Z12.31 Encounter for screening mammogram for malignant neoplasm of breast (principal)
CPT/HCPCS: 77063; 77067

== ENCOUNTER → 2024-12-30 | Outpatient (CLI) | payer OTHER, SELFPAY ==
[2024-12-30 15:59] LABS: Hematocrit 33.1 % (37-47); Hemoglobin 10.6 g/dL (12.0-15.0); Immature Granulocytes Count 0.020 X10^3/uL (0.0-0.0); Mean Corp Hgb Conc 32.0 g/dL (32-36); Mean Corpuscular Volume 88.0 fL (81-99); Mean Platelet Vol. 11.1 fl (6.2-12.0); NRBC Flagged by Analyzer 0 % (0-5); Platelet Count 269 K/mm3 (150-450); RBC Distribution Width CV 15.4 % (11.6-14.6); RBC Distribution Width SD 49.8 fl (35.1-43.9); Red Blood Count 3.76 M/mm3 (4.2-5.4); White Blood Count 5.8 K/mm3 (4.4-11.0)
[2024-12-30 16:31] LABS: AST(SGOT) 21 U/L (<=31); Alanine Aminotransfer ALT/SGPT 16 U/L (<=34); Albumin, Serum 4.3 g/dL (3.5-5.0); Alkaline Phosphatase 69 U/L (35-104); Anion Gap 11 (5-15); BUN 20 mg/dL (4-19); BUN/Creat Ratio 19.3 RATIO (10-20); Calcium,Total 9.6 mg/dL (7.6-11.0); Carbon Dioxide 24.1 mmol/L (21.0-32.0); Chloride 108 mmol/L (98-108); Ferritin 15 ng/mL (22-378); Globulin 2.4 g/dL (2.2-4.2); Glucose 91 mg/dL (70-99); Iron 98 ug/dL (50-170); Iron Binding Capacity,Total 340 ug/dL (250-450); Iron Binding Capacity,Unsat 242 ug/dL (228-428); Potassium 3.9 mmol/L (3.3-5.1)
[2024-12-31 10:25] LABS: FOLATES,SERUM (FOLIC ACID) 19.40 ng/mL (4.60-34.80)
[2024-12-31 11:35] LABS: Vitamin B12 461 pg/mL (180-914)
== END | disposition home or self-care (01) ==
LOC: BIMLAB 15:12
PROVIDERS: PCP Internal Medicine; Referring Provider Internal Medicine; Visit Provider Internal Medicine
DX: I10 Essential (primary) hypertension (principal); D64.9 Anemia, unspecified
CPT/HCPCS: 36415; 80053; 82607; 82728; 82746; 83540; 83550; 85025